=== PATIENT | female | born 1945 | race Caucasian/White ===

== ENCOUNTER 2017-12-26 15:31 | Emergency (ER) | payer MEDICARE, MEDICAID, SELFPAY ==
[2017-12-26 15:41] VITALS: BP 175/76; PULSE 50; RESP 20; TEMP 36.2; O2SAT 98; BMI 41.5
--- NOTE | 2017-12-26 15:42 | ED.FEMALEGU ---
HPI - Female Genitourinary <Marleni Pirde PA-C - Last Filed: 12/26/17 21:44> General Chief complaint: Urogenital-Female Stated complaint: BLADDER ISSUES,LOTS OF PAIN Time Seen by Provider: 12/26/17 15:42 Source: patient Mode of arrival: ambulatory Limitations: no limitations History of Present Illness HPI Narrative: This 72-year-old female comes into the ED today requesting a refill of Augmentin due to recurrence bladder spasm and urinary frequency and pressure. She states that she has had this problem off and on since the , last was about a year and a half ago. She states she had full urology workup including cystoscopy and no specific findings. She denies jorje burning. She denies fever, chills, sweats. She denies any flank pain or nausea or vomiting or other new symptoms. She states this feels very typical of her previous ???cystitis???, and the Augmentin she used previously helped at high dose, not at lower dose. Other antibiotics have not helped for this. She states she has tried ibuprofen and Pyridium without relief. She states there do not seem to be any triggers for her symptoms and she can go a year or two between episodes Related Data Previous Rx's Medication Instructions Recorded albuterol sulfate [Proventil HFA] 2 puff INH QID #17 gm 05/07/16 omeprazole 20 mg PO QDAY #90 cap 11/05/16 fluticasone [Flovent HFA] 0 INH BID #3 inh 12/21/16 chlorthalidone 25 mg PO QDAY #90 tab 07/07/17 metformin 1,000 mg PO BID #180 tab 07/28/17 glimepiride [Amaryl] 4 mg PO AMCC #30 tab 08/11/17 penicillin V potassium 500 mg PO QID 10 Days #0 tab 08/29/17 ibuprofen 600 mg PO Q8HP PRN #90 tab 09/09/17 azithromycin [Zithromax] 250 - 500 mg PO QDAY #6 tab 09/10/17 clotrimazole-betamethasone 1 roya TP TID #1 tube 10/05/17 simvastatin [Zocor] 20 mg PO QDAY #90 tab 10/05/17 insulin aspart U-100 [Novolog 8 - 28 unit SQ SEE INSTRUCTIONS #1 10/28/17 Flexpen U-100 Insulin] box atenolol 25 mg PO QDAY #90 tab 11/10/17 lisinopril 20 mg PO QDAY #90 tab 11/10/17 ferrous fumarate [Ferrocite] 324 mg PO Q DAY #30 tab 11/16/17 insulin detemir U-100 [Levemir 30 u SQ BID #15 ea 11/17/17 FlexTouch U-100 Insuln] pen needle, diabetic 31 gauge x #300 each 12/07/1712/15 hydrocodone 5 mg-acetaminophen 325 0 tab PO Q4HP PRN #45 tab 12/17/17 mg tablet amoxicillin-pot clavulanate 1 tab PO Q12H #28 tab 12/26/17 [Augmentin] Allergies Allergy/AdvReac Type Severity Reaction Status Date / Time iodine [IODINE] Allergy Severe hives Verified 12/26/17 15:54 ciprofloxacin [CIPROFLOXACIN] AdvReac Intermediate swelling Verified 12/26/17 15:54 rosuvastatin [From CRESTOR] AdvReac Unknown Verified 12/26/17 15:54 tramadol [TRAMADOL] AdvReac Unknown headache Verified 12/26/17 15:54 Review of Systems <Marleni Pride PA-C - Last Filed: 12/26/17 21:44> Review of Systems All systems reviewed & are unremarkable except as noted in HPI and below Exam <Marleni Pride PA-C - Last Filed: 12/26/17 21:44> Narrative Exam Narrative: GENERAL APPEARANCE: Patient sitting comfortably, in no distress. LUNGS: Clear to auscultation bilaterally. HEART: Rate and rhythm regular without murmur, normal S1 and S2, no S3 or S4. ABDOMEN: Soft, obese, ND, +BS x 4 quadrants, minimal localized suprapubic TTP, no CVAT. Initial Vital Signs Initial Vital Signs: Vital Signs Temperature 97.1 F L 12/26/17 15:41 Pulse Rate 50 L 12/26/17 15:41 Respiratory Rate 20 12/26/17 15:41 Blood Pressure 175/76 H 12/26/17 15:41 Pulse Oximetry 98 12/26/17 15:41 <Virgie Conner DO - Last Filed: 12/27/17 07:31> Initial Vital Signs Initial Vital Signs: Vital Signs Temperature 97.1 F L 12/26/17 15:41 Pulse Rate 50 L 12/26/17 15:41 Respiratory Rate 20 12/26/17 15:41 Blood Pressure 175/76 H 12/26/17 15:41 Pulse Oximetry 98 12/26/17 15:41 Course <Marleni Pride PA-C - Last Filed: 12/26/17 21:44> Hospital Course: Reviewed normal UA with patient advise that she likely has some intermittent bladder inflammation, and the antibiotic may act as an anti-inflammatory. She used this rarely and reasonable to refill, however advised her of potential down sides including side effects, C diff, etc and to discuss with her PCP and talk about having a prescription to fill as needed. Also advised to discontinue the prescription if she is feeling better in 3-5 days rather than do the full course. Vital Signs - 8 hr 12/26/17 15:41 Temperature 97.1 F L Pulse Rate 50 L Respiratory Rate 20 Blood Pressure 175/76 H Pulse Oximetry 98 <Virgie Conner DO - Last Filed: 12/27/17 07:31> Vital Signs - 8 hr 12/26/17 15:41 Temperature 97.1 F L Pulse Rate 50 L Respiratory Rate 20 Blood Pressure 175/76 H Pulse Oximetry 98 Discharge Plan Departure Patient Disposition: Home, Self-Care Clinical Impression: Cystitis Discharge Date/Time: 12/26/17 16:40 Interventions: ED Discharge Assessment Last Done: 12/26/17 16:38 Instructions: DI for Interstitial Cystitis Activity Restrictions/Additional Instructions: Since you have had a full workup for your bladder pain, it is reasonable for you to continue the antibiotic occasionally if you need to. I suspect that you occasionally get inflammation that is not related to infection, but that the antibiotic helps with. Do not take the full course if you are feeling better in a few days. As we talked about, we want to limit the risk of side effects and secondary infections from the antibiotic. Please talk with your PCP about keeping a prescription on hand to fill as needed since you use it so rarely. Return as we talked about if you have acutely worsening symptoms Prescriptions: New amoxicillin-pot clavulanate [Augmentin] 875-125 mg tablet 1 tab PO Q12H Qty: 28 RF: 0 No Action albuterol sulfate [Proventil HFA] 90 MCG/PUFF HFA aerosol inhaler 2 puff INH QID Qty: 17 RF: 2 omeprazole 20 MG capsule,delayed release(DR/EC) 20 mg PO QDAY Qty: 90 RF: 1 fluticasone [Flovent HFA] 12 GM HFA aerosol inhaler INH BID Qty: 3 RF: 3 chlorthalidone 25 MG tablet 25 mg PO QDAY Qty: 90 RF: 3 metformin 1,000 MG tablet 1,000 mg PO BID Qty: 180 RF: 3 glimepiride [Amaryl] 4 MG tablet 4 mg PO AMCC Qty: 30 RF: 4 penicillin V potassium 500 MG tablet 500 mg PO QID 10 Days Qty: 0 RF: 0 ibuprofen 600 MG tablet 600 mg PO Q8HP PRNQty: 90 RF: 0 azithromycin [Zithromax] 250 MG tablet 250 - 500 mg PO QDAY Qty: 6 RF: 0 simvastatin [Zocor] 20 MG tablet 20 mg PO QDAY Qty: 90 RF: 3 clotrimazole-betamethasone 15 GM cream 1 roya TP TID Qty: 1 RF: 3 insulin aspart U-100 [Novolog Flexpen U-100 Insulin] 100 UNIT/1 ML insulin pen 8 - 28 unit SQ SEE INSTRUCTIONS Qty: 1 RF: 3 lisinopril 20 MG tablet 20 mg PO QDAY Qty: 90 RF: 1 atenolol 50 MG tablet 25 mg PO QDAY Qty: 90 RF: 3 ferrous fumarate [Ferrocite] 324 MG tablet 324 mg PO Q DAY Qty: 30 RF: 3 insulin detemir U-100 [Levemir FlexTouch U-100 Insuln] 100 UNIT/1 ML insulin pen 30 u SQ BID Qty: 15 RF: 5 pen needle, diabetic [BD Ultra-Fine Short Pen Needle] 31 gauge x 5/16 needle .ROUTE .MEDSUPPLY Qty: 300 RF: 12 hydrocodone-acetaminophen 5-325 mg tablet PO Q4HP PRN (Reason: pain) Qty: 45 RF: 0 Referrals: Carlos Arrington MD [Primary Care Provider] - <Virgie Conner DO - Last Filed: 12/27/17 07:31> Cosign ED Attending Cosignature Attestation: I was immediately available in the department for consultation. Documentation has been reviewed. I agree with assessment and plan.
--- NOTE | 2017-12-26 15:43 | PC.NURSE ---
To BR to try to give a urine spec
--- NOTE | 2017-12-26 16:24 | PC.NURSE ---
Mother concerned about patient getting legs caught in side rails - blankets used to discourage putting limbs between rails - mother declined the use of seizure pads
== END 2017-12-26 16:40 | disposition home or self-care (01) ==
PROVIDERS: Emergency Provider Internal Medicine; Family Provider Internal Medicine; PCP Internal Medicine
DX: N30.90 Cystitis, unspecified without hematuria (principal)
CPT/HCPCS: 81003; 99283

== ENCOUNTER 2018-02-11 07:57 | Day surgery (SDC) | payer MEDICARE, MEDICAID, SELFPAY ==
[2018-02-11] VITALS (9 sets, daily range): BP systolic 130–166; BP diastolic 60–78; PULSE 48–53; RESP 13–22; TEMP 36.2–36.9; O2SAT 96–100; BMI 41.5
--- NOTE | 2018-02-11 | PATH_ITS ---
[facility] Accession Number: [id number] . 01 Material submitted: . PART A: GASTRIC POLYP PART B: SMALL GASTRIC POLYPS PART C: COLON POLYP AT 20CM . 02 Diagnosis: A. Gastric Polyp: Inflammatory/hyperplastic polyp, negative for atypia. . B. Specimen Designated Small Gastric Polyps: Benign fundic gland polyps involving all biopsy fragments. Negative for evidence of Helicobacter on H/E stain. Negative for intestinal metaplasia. . C. Biopsy, Colon Polyp At 20 CM: Hyperplastic polyp. . BFI/02/24/2018 . 02 Electronically signed: . Alejandro Miranda MD, Pathologist NPI- [id number] . 01 Gross description: . Part A: GASTRIC POLYP: Received in formalin is 1 fragment(s) of rojo, soft tissue measuring 2.4 x 2.4 x 2.0 cm which is inked, serially sectioned and submitted entirely in 2 cassette(s) Part B: SMALL GASTRIC POLYPS: Received in formalin are 5 fragment(s) of rojo, soft tissue measuring 0.4 x 0.4 x 0.3 cm to 0.2 x 0.2 x 0.2 cm submitted entirely in 1 cassette(s) Part C: COLON POLYP AT 20CM: Received in formalin is 1 fragment(s) of rojo, soft tissue measuring 0.4 x 0.3 x 0.2 cm submitted entirely in 1 cassette(s) /CKI /CKI . 02 Pathologist provided ICD-10: K31.7 . 02 CPT . 616997, 099151, 210121 Performed at: [address], [place], [place] [id number] MD Bao Esteves MD Phone: [phone] Performed at: 02 [facility] [place] [address] [place] [id number] MD Jalen Tadeo MD Phone: [phone]
[2018-02-11] MEDS: SODIUM CHLORIDE 0.9% 1,000 ML 200 ML IV (08:17)
--- NOTE | 2018-02-11 09:02 | P.HP_ITS ---
History of Present Illness Date Patient Seen: 02/11/18 Time Patient Seen: 08:29 Chief complaint: EGD colonoscopy [id number] Narrative: Patient is a woman here for evaluation of anemia. She was actually seen in September and has had 3 cancellations of an EGD and colonoscopy. She has finally here to have those tests. She presently is asymptomatic. She has been on iron whole time. She has had no labs drawn since then. Glucose this morning in acceptable range. Patient History Medical History Asthma (Chronic) Diabetes mellitus (Chronic) Diverticular disease (Chronic) GERD (gastroesophageal reflux disease) (Chronic) Hyperlipidemia (Chronic) Hypertension (Chronic) Surgical History History of total abdominal hysterectomy (Resolved) History of bilateral salpingo-oophorectomy (BSO) Family & Social History Family History: Reviewed 02/11/18 by Daryn Yun MD Social History: household members none Tobacco & Substance use: Smoking Status Never smoker Substance Use Type does not use Meds Home Medications Medication Instructions Recorded Confirmed Type albuterol sulfate [Proventil HFA] 2 puff INH QID #17 gm 05/07/16 02/11/18 Rx chlorthalidone 25 mg PO QDAY #90 tab 07/07/17 Rx metformin 1,000 mg PO BID #180 tab 07/28/17 Rx ibuprofen 600 mg PO Q8HP PRN #90 tab 09/09/17 Rx clotrimazole-betamethasone 1 roya TP TID #1 tube 10/05/17 Rx simvastatin [Zocor] 20 mg PO QDAY #90 tab 10/05/17 Rx atenolol 25 mg PO QDAY #90 tab 11/10/17 Rx lisinopril 20 mg PO QDAY #90 tab 11/10/17 Rx ferrous fumarate [Ferrocite] 324 mg PO Q DAY #30 tab 11/16/17 Rx insulin detemir U-100 [Levemir 30 u SQ BID #15 ea 11/17/17 Rx FlexTouch U-100 Insuln] pen needle, diabetic 31 gauge x #300 each 12/07/17 Rx 12/15 glimepiride [Amaryl] 4 mg PO AMCC #30 tab 12/31/17 Rx omeprazole 20 mg capsule,delayed 20 mg PO QDAY #90 cap 12/31/17 Rx release ranitidine 150 mg tablet 150 mg PO BID PRN #60 tab 01/19/18 Rx insulin aspart U-100 [Novolog 8 - 28 unit SQ SEE INSTRUCTIONS #1 01/24/18 Rx Flexpen U-100 Insulin] box hydrocodone 5 mg-acetaminophen 325 See Label Instructions PO Q4HP PRN 02/10/18 Rx mg tablet #45 tab fluticasone [Flovent HFA] 2 puff INH BID 02/11/18 History Allergies Allergy/AdvReac Type Severity Reaction Status Date / Time Horse/Equine Containing Allergy Severe Difficulty Verified 02/11/18 08:47 Products Breathing iodine [IODINE] Allergy Severe hives Verified 02/11/18 08:46 ciprofloxacin [CIPROFLOXACIN] AdvReac Intermediate swelling Verified 02/11/18 08 :45 tramadol [TRAMADOL] AdvReac Intermediate headache Verified 02/11/18 08:45 rosuvastatin [From CRESTOR] AdvReac Mild Swelling Verified 02/11/18 08:45 in feet Review of Systems Review of Systems Has some chronic pain related to her back. Intermittent shortness of breath. Sugars are variably controlled. No chest pain or heart attacks in the past. No black or bloody bowel movements. Exam Vital Signs (past 8 hours): - 02/11/18 08:17 Temperature 97.3 F L Pulse Rate 51 L Respiratory Rate 16 Blood Pressure 151/65 H Pulse Oximetry 96 Oxygen Delivery Method Room Air Narrative Exam Narrative: Obese very pleasant woman in no apparent distress. Her eyes are nonicteric. She has good color. Her lungs are clear to auscultation without rales or rhonchi. Heart regular rate and rhythm no murmur gallop. Abdomen is protuberant soft no obvious tenderness or mass. She is alert and oriented x3. Assessment & Plan Plan: Assessment/Plan Narrative: Patient with anemia for an EGD and colonoscopy to evaluate. Her last colonoscopy was 5 years ago. She had a polyp removed at that time. I have discussed the procedures with her. Risks of pain, perforation which would necessitate a major operation, failure to find removal lesions in the potential tattoo were discussed. She appears to understand and wishes to proceed
--- NOTE | 2018-02-11 09:02 | PM.PREOP ---
Pre-operative Note Interval Note Pre-op Check: History & Physical exam performed today H&P completed within 30 days and has changed as indicated here:: None ASA Class (for procedural sedation): III
[2018-02-11] MEDS: LIDOCAINE 4% SOLN 50 ML 20 ML TOP (09:10)
[2018-02-11] MEDS: TETRACAINE/BENZOCAINE/BUTAMBEN (CETACAINE) BOTTLE 1 SPRAY TOP (09:11)
[2018-02-11] MEDS: EPINEPHrine 1 MG/10 ML SYRINGE INJ (09:58)
[2018-02-11] MEDS: MIDAZOLAM 5 MG/5 ML VIAL IV (10:11)
[2018-02-11] MEDS: fentaNYL 250 MCG/5 ML INJ IV (10:12)
--- NOTE | 2018-02-11 10:38 | P.OP.ENDO_ITS ---
Operative Date/Time/Diagnoses Date of procedure: 02/11/18 Time of procedure: 10:22 Pre-op diagnosis: Anemia chronic Post-op diagnosis: same (Large gastric polyp source of anemia. Gastric fundic polyps extensive. Sigmoid diverticulosis. Two tiny rectal sigmoid polyps at 20 cm. External hemorrhoid) Procedure & Clinicians Study performed: EGD with hot snare polypectomy and injection of epinephrine into the base of the polyp to control bleeding. Colonoscopy with cold biopsy. Same procedure as scheduled: Yes Indications: Determine source of anemia. Surgeon: Daryn Yun Procedure Notes SCOAP/Timeout: Performed Procedure in detail: The patient had topical anesthetic applied to oropharynx. She was placed in left lateral decubitus position and underwent IV sedation directed by the surgeon consisting of fentanyl and Versed and Phenergan. A bite block was inserted and the scope was advanced through it into the esophagus. The esophagus was unremarkable. GE junction was noted at 38 cm from the incisors. The patient was noted to have a small hiatal hernia. Extensive gastric fundic polyps were noted.. The stomach insufflated well. There was inflammation in the antrum. The pyloric channel was [partially blocked by what appeared to be a stalk of a polyp.]. The duodenum was entered and there was a huge polyp within the duodenal bulb whose base was in the antrum of the stomach. Using the largest snare I had we were able to place a snare under the polyp on its very long stalk. I then pulled it into the stomach. It barely fit through the pyloric channel. Using cautery the stock was transected. Bleeding was noted from the stock of a slow continuous ooze. I chose to inject epinephrine containing solution a total of 2 cc into the base of the polyp. This slowed the bleeding and I then cauterized the bleeding site. This brought the bleeding under control.. The scope was brought back into the stomach and retroflexed. Except for the already mentioned gastric fundic polyps retroflexed view was fairly normal. The scope was straightened and multiple gastric fundic appearing polyps were biopsied to confirm clinical suspicion. The snare site was again examined and there was no evidence of bleeding. The stalk had become somewhat pale from the epinephrine injection. The large polyp was captured in a bag and brought out through the esophagus is a solid piece of tissue. The polyp was so large it was difficult to pull up through the upper entrance into the esophagus. The scope was removed and the patient tolerated the procedure well. The patient was placed in the left lateral decubitus position and underwent IV sedation directed by the surgeon consisting of fentanyl and Versed. Digital exam was[remarkable for an external hemorrhoid.]. The scope was inserted and advanced through the rectum into the sigmoid, descending, transverse, and ascending colon. I noted some large mouth sigmoid diverticuli. There was no narrowing or tortuosity however.. The cecum was reached identified by the ileocecal valve and the appendiceal opening. The scope was gradually brought out. Polyps were found at[20 cm from the anal verge. These were very small and may be hyperplastic.]. The scope ultimately was retroflexed in the rectum. The appearance was remarkable for some minor scarring. The scope was removed and the patient tolerated the procedure well Sedation minutes: 63 Findings: diverticulosis (Sigmoid), gastritis (Antrum), internal hemorrhoids ( Minor with an external hemorrhoid) and polyp (Huge gastric polyp on a stalk. Too Numerous to count gastric fundic polyps. Two small polypoid lesions at 20 cm from the anal verge) Specimen(s): other (Polyps in 3 separate containers) Complications: none Recommendations: Colonscopy in 5 years and Other recommendation (EGD in 6 months depending on pathology of the large gastric polyp) Follow up: weeks (2-4) Disposition: PACU
--- NOTE | 2018-02-11 11:25 | SUR.PHASEII ---
Pt drowsy. Vs stable. ABD soft, denied pain. Call light within reach.
[2018-02-11 11:55] LABS: Add Manual Diff / Slide Review NO; Basophils Percent Auto 0.7 % (0-2); Eosinophils Percent Auto 4.3 % (2-4); Hematocrit 33.5 % (36-46); Hemoglobin 10.9 g/dL (12.0-16.0); Lymphocytes Percent Auto 26.7 % (25-40); Mean Corpuscular HGB Conc 32.5 % (30-36); Mean Corpuscular Hemoglobin 28.1 PG (26-34); Mean Corpuscular Volume 86.6 fL (80-100); Monocytes Percent Auto 4.8 % (3-14); Neutrophils Absolute Auto 7100 /uL (3000-5900); Neutrophils Percent Auto 63.5 % (50-75); Platelet Count 247 X10^3/uL (150-400); Red Blood Cell Count 3.87 X10^6/uL (4.0-5.2); White Blood Cell Count 11.2 X10^3/uL (4.5-11.0)
--- NOTE | 2018-02-11 12:21 | SUR.PHASEII ---
1218 CBC results here, informed Dr. Yun of elevate WBC, low RBC - H&H; approved discharge. Patient states that she feels ready to go home. IV dc'd, clothes given.
--- NOTE | 2018-02-11 12:43 | SUR.PHASEII ---
DC instructions review by Fabricio Golden RN
[2018-02-11] MEDS: PROMETHAZINE 25 MG in SODIUM CHLORIDE 0.9% 50 ML 204 ML IV (12:57)
== END 2018-02-11 12:34 | disposition home or self-care (01) ==
LOC: ENDO 07:58
PROVIDERS: Family Provider Internal Medicine; PCP Internal Medicine; Visit Provider Specialist
PROC: 0DJ08ZZ Inspection of Upper Intestinal Tract, Via Natural or Artificial Opening Endoscopic (ICD-10-PCS; CPT 43235; principal; 2018-02-11 08:45)
PROC: 0DJD8ZZ Inspection of Lower Intestinal Tract, Via Natural or Artificial Opening Endoscopic (ICD-10-PCS; CPT 45378; 2018-02-11 08:45)
DX: K31.7 Polyp of stomach and duodenum (principal); J45.909 Unspecified asthma, uncomplicated; E11.9 Type 2 diabetes mellitus without complications; K57.30 Diverticulosis of large intestine without perforation or abscess without bleeding; K21.9 Gastro-esophageal reflux disease without esophagitis; E78.5 Hyperlipidemia, unspecified; I10 Essential (primary) hypertension; Z86.010 Personal history of colon polyps; K29.70 Gastritis, unspecified, without bleeding; D12.5 Benign neoplasm of sigmoid colon; K64.4 Residual hemorrhoidal skin tags; E66.9 Obesity, unspecified
CPT/HCPCS: 43251; 45380; 36415; 85025; 99152; 99153; J0171; J2250; J2550; J3010

== ENCOUNTER 2018-03-23 22:07 | Emergency (ER) | payer MEDICARE, MEDICAID, SELFPAY ==
[2018-03-23 22:08] VITALS: BP 156/70; PULSE 53; RESP 16; TEMP 36.4; O2SAT 97; BMI 41.5
[2018-03-23 22:17] LABS: Bacteria Urine None Seen; RBC Urine None Seen (0-5/HPF)
[2018-03-23 22:18] LABS: Appearance Urine UA CLEAR; Bilirubin Urine UA NEGATIVE (NEGATIVE); Color Urine UA YELLOW; Glucose Urine UA 1+ g/dL (Normal); Ketones Urine UA NEGATIVE (NEGATIVE); Leukocyte Esterase Urine UA TRACE (NEGATIVE); Nitrite Urine UA Negative (Negative); Occult Blood Urine UA NEGATIVE (Negative); Protein Urine UA NEGATIVE (Negative); Specific Gravity Urine UA 1.015 (1.000-1.035); Urobilinogen Urine UA 0.2 E.U./dL (0.2)
[2018-03-23 22:40] LABS: Squamous Epithelial Cell Urine 0-1 /HPF; WBC Urine 0-1/HPF (0-5/HPF)
[2018-03-23 22:41] LABS: Culture Indicated Urine Specimen Cultured
[2018-03-23] MEDS: AMOXICILLIN/CLAV 875/125 MG 1 TAB PO (23:23)
[2018-03-23 23:42] VITALS: BP 154/72; PULSE 60; RESP 16; O2SAT 100
--- NOTE | 2018-03-24 06:17 | ED.FEMALEGU ---
HPI - Female Genitourinary General Chief complaint: Urogenital-Female Stated complaint: UTI Sx Time Seen by Provider: 03/23/18 23:00 Source: patient Mode of arrival: ambulatory Limitations: no limitations History of Present Illness HPI Narrative: 73-year-old female presents to the emergency department with a chief complaint of dysuria, frequency and urgency as well as suprapubic tenderness for the past week. She has a longstanding history of urinary tract infections and cystitis and has seen neurologists on multiple occasions. She denies back pain, nausea nor fever or chills. She is not dizzy nor weak or lightheaded. She states that she does well with Augmentin and that other antibiotics 10 to not work and make her feel sick MD Complaint: dysuria and UTI Onset (ago): day(s) Location: suprapubic Severity: mild Quality: Aching and Burning Duration: constant Relieving factors: none Exacerbating factors: none Urinary symptoms: Difficulty Urinating, Dysuria, Foul Smelling Urine and Frequency Patient : No Associated symptoms: denies other symptoms Related Data Home Medications Medication Instructions Recorded Confirmed fluticasone [Flovent HFA] 2 puff INH BID 02/11/18 Previous Rx's Medication Instructions Recorded albuterol sulfate [Proventil HFA] 2 puff INH QID #17 gm 05/07/16 chlorthalidone 25 mg PO QDAY #90 tab 07/07/17 metformin 1,000 mg PO BID #180 tab 07/28/17 ibuprofen 600 mg PO Q8HP PRN #90 tab 09/09/17 clotrimazole-betamethasone 1 roya TP TID #1 tube 10/05/17 simvastatin [Zocor] 20 mg PO QDAY #90 tab 10/05/17 atenolol 25 mg PO QDAY #90 tab 11/10/17 lisinopril 20 mg PO QDAY #90 tab 11/10/17 ferrous fumarate [Ferrocite] 324 mg PO Q DAY #30 tab 11/16/17 insulin detemir U-100 [Levemir 30 u SQ BID #15 ea 11/17/17 FlexTouch U-100 Insuln] pen needle, diabetic 31 gauge x #300 each 12/07/1712/15 glimepiride [Amaryl] 4 mg PO AMCC #30 tab 12/31/17 omeprazole 20 mg capsule,delayed 20 mg PO QDAY #90 cap 12/31/17 release ranitidine 150 mg tablet 150 mg PO BID PRN #60 tab 01/19/18 insulin aspart U-100 [Novolog 8 - 28 unit SQ SEE INSTRUCTIONS #1 01/24/18 Flexpen U-100 Insulin] box hydrocodone 5 mg-acetaminophen 325 See Label Instructions PO Q4HP PRN 03/15/18 mg tablet #45 tab insulin glargine (U-100) 100 30 unit SUBCUT DAILY #15 ml 03/18/18 unit/mL (3 mL) subcutaneous pen amoxicillin-pot clavulanate 1 tab PO BID #20 tab 03/23/18 [Augmentin] amoxicillin-pot clavulanate 1 tab PO BID 14 Days #28 tab 03/23/18 [Augmentin] sulfamethoxazole-trimethoprim 1 tab PO BID 14 Days #28 tab 03/23/18 [Bactrim DS] Allergies Allergy/AdvReac Type Severity Reaction Status Date / Time Horse/Equine Containing Allergy Severe Difficulty Verified 02/11/18 08:47 Products Breathing iodine [IODINE] Allergy Severe hives Verified 02/11/18 08:46 ciprofloxacin [CIPROFLOXACIN] AdvReac Intermediate swelling Verified 02/11/18 08:45 tramadol [TRAMADOL] AdvReac Intermediate headache Verified 02/11/18 08:45 rosuvastatin [From CRESTOR] AdvReac Mild Swelling Verified 02/11/18 08:45 in feet Review of Systems Review of Systems All systems reviewed & are unremarkable except as noted in HPI and below Constitutional Denies chills, Denies fever(s), Denies lethargy and Denies weakness Eyes Denies change in vision, Denies eye discharge, Denies irritation and Denies loss of vision ENT Ears, Nose, Mouth, and Throat: Denies change in voice, Denies neck pain and Denies sore throat Cardiovascular Denies chest pain, Denies irregular heart rhythm, Denies lightheadedness, Denies palpitations, Denies dyspnea, Denies dyspnea on exertion and Denies orthopnea Respiratory Denies cough, Denies dyspnea, Denies dyspnea on exertion and Denies wheezing Gastrointestinal Gastrointestinal: Denies abdominal pain, Denies change in bowel habits, Denies diarrhea, Denies nausea and Denies vomiting Genitourinary Denies hematuria, Reports dysuria, Denies flank pain, Denies urinary incontinence and Reports urinary urgency Musculoskeletal Denies neck pain Integumentary/Breasts Denies pruritus, Denies erythema, Denies rash and Denies wounds Neurologic Denies confusion, Denies loss of vision and Denies weakness Psychiatric Denies anxiety, Denies confusion, Denies depression, Denies homicidal ideation and Denies suicidal ideation Endocrine Denies palpitations Hematologic/Lymphatic Denies easy bruising Allergic/Immunologic Denies wheezing [facility] Medical History Asthma (Chronic) Diabetes mellitus (Chronic) Diverticular disease (Chronic) GERD (gastroesophageal reflux disease) (Chronic) Hyperlipidemia (Chronic) Hypertension (Chronic) Surgical History History of total abdominal hysterectomy (Resolved) History of bilateral salpingo-oophorectomy (BSO) Social History household members: none Smoking Status: Never smoker Exam Narrative Exam Narrative: GEN: AOx3 and in mild distress EYES: Pupils are equal, round, and reactive to light and accommodation. Extraoccular muscles are intact bilaterally. There is no subconjunctival hemorrhage or exudate. CHEST: Lungs are clear to auscultation bilaterally and free of wheezes, rales, or rhonchi. Heart rate is regular rhythm, there are no murmurs, clicks, rubs, or gallops. There is no chest wall tenderness. ABD: Abdomen is soft and mild suprapubic tenderness on exam. There is no guarding or rebound. Bowel sounds are normal in all 4 quadrants. There is no mass or organomegaly. EXT: Full painless ROM of all extremities with no loss of sensation or strength. SKIN: Warm, pink, and dry. No erythema or rash Initial Vital Signs Initial Vital Signs: Vital Signs Temperature 97.6 F 03/23/18 22:08 Pulse Rate 53 L 03/23/18 22:08 Respiratory Rate 16 03/23/18 22:08 Blood Pressure 156/70 H 03/23/18 22:08 Pulse Oximetry 97 03/23/18 22:08 Course Orders Ordered: ED Orders 03/23/18 22:16 Urinalysis and Microscopic Stat Urine Culture Stat Discontinued Medications Amoxicillin/Clavulanate Potassium (Augmentin 875-125 Mg) 1 tab PO NOW ONE Stop: 03/23/18 23:10 Last Admin: 03/23/18 23:23 Dose: 1 tab Vital Signs - 8 hr 03/23/18 23:42 Pulse Rate 60 Respiratory Rate 16 Blood Pressure 154/72 H Pulse Oximetry 100 MDM - Female Genitourinary Lab Data Lab Results 03/23/18 Range/Units 22:16 Urine Color Yellow Urine Appearance Clear Urine pH 6.0 (4.5-8.0) Ur Specific [place] 1.015 (1.000-1.035) Urine Protein Negative (Negative) Urine Glucose (UA) 1+ (Normal) g/dL Urine Ketones Negative (NEGATIVE) Urine Occult Blood Negative (Negative) Urine Nitrate Negative (Negative) Urine Bilirubin Negative (NEGATIVE) Urine Urobilinogen 0.2 (0.2) E.U./dL Ur Leukocyte Esterase Trace H (NEGATIVE) Urine RBC None seen (0-5/HPF) Urine WBC 0-1/hpf (0-5/HPF) Ur Squamous Epith Cells 0-1 /hpf Urine Bacteria None seen (None) Ur Culture Indicated? Specimen cultured Micro UA Comment Not Reportable Discharge Plan Departure Patient Disposition: Home Clinical Impression: Cystitis, Acute UTI Discharge Date/Time: 03/23/18 23:42 Interventions: ED Discharge Assessment Last Done: 03/23/18 23:42 Instructions: DI for Urinary Tract Infection (UTI) Activity Restrictions/Additional Instructions: *You have been diagnosed with [ acute UTI with cystitis ] *What to do: *Take medications as directed: Your prescription has been electronically transmitted to the [facility] in [place] at your request *Follow up with your primary care provider in 2-3 days, call for an appointment. Let them know you were seen in the Emergency Department and that we ask that you be seen in follow up *Return to ER if you should have any new, worsening or concerning symptoms, such as [ increasing pain, fever, vomiting or other bothersome symptoms] Prescriptions: New amoxicillin-pot clavulanate [Augmentin] 875-125 mg tablet 1 tab PO BID Qty: 20 RF: 0 sulfamethoxazole-trimethoprim [Bactrim DS] 800-160 mg tablet 1 tab PO BID 14 Days Qty: 28 RF: 0 amoxicillin-pot clavulanate [Augmentin] 875-125 mg tablet 1 tab PO BID 14 Days Qty: 28 RF: 0 No Action albuterol sulfate [Proventil HFA] 90 MCG/PUFF HFA aerosol inhaler 2 puff INH QID Qty: 17 RF: 2 chlorthalidone 25 MG tablet 25 mg PO QDAY Qty: 90 RF: 3 metformin 1,000 MG tablet 1,000 mg PO BID Qty: 180 RF: 3 ibuprofen 600 MG tablet 600 mg PO Q8HP PRNQty: 90 RF: 0 simvastatin [Zocor] 20 MG tablet 20 mg PO QDAY Qty: 90 RF: 3 clotrimazole-betamethasone 15 GM cream 1 roya TP TID Qty: 1 RF: 3 lisinopril 20 MG tablet 20 mg PO QDAY Qty: 90 RF: 1 atenolol 50 MG tablet 25 mg PO QDAY Qty: 90 RF: 3 ferrous fumarate [Ferrocite] 324 MG tablet 324 mg PO Q DAY Qty: 30 RF: 3 insulin detemir U-100 [Levemir FlexTouch U-100 Insuln] 100 UNIT/1 ML insulin pen 30 u SQ BID Qty: 15 RF: 5 pen needle, diabetic [BD Ultra-Fine Short Pen Needle] 31 gauge x 5/16 needle .ROUTE .MEDSUPPLY Qty: 300 RF: 12 omeprazole 20 mg capsule,delayed release(DR/EC) 20 mg PO QDAY Qty: 90 RF: 1 glimepiride [Amaryl] 4 mg tablet 4 mg PO AMCC Qty: 30 RF: 3 ranitidine HCl [Acid Control (ranitidine)] 150 mg tablet 150 mg PO BID PRN (Reason: GI upset) Qty: 60 RF: 3 insulin aspart U-100 [Novolog Flexpen U-100 Insulin] 100 unit/mL insulin pen 8 - 28 unit SQ SEE INSTRUCTIONS Qty: 1 RF: 3 hydrocodone-acetaminophen 5-325 mg tablet See Label Instructions PO Q4HP PRN (Reason: pain) Qty: 45 RF: 0 insulin glargine [Lantus Solostar U-100 Insulin] 100 unit/mL (3 mL) insulin pen 30 unit SUBCUT DAILY Qty: 15 RF: 6 fluticasone [Flovent HFA] 12 GM HFA aerosol inhaler 2 puff INH BID RF: 0 Referrals: Carlos Arrington MD [Primary Care Provider] -
== END 2018-03-23 23:42 | disposition home or self-care (01) ==
PROVIDERS: Emergency Provider Emergency Medicine; Family Provider Internal Medicine; PCP Internal Medicine
DX: N30.90 Cystitis, unspecified without hematuria (principal); N39.0 Urinary tract infection, site not specified
CPT/HCPCS: 81001; 87086; 99282; 99283

== ENCOUNTER → 2018-04-07 15:37 | Outpatient (CLI) | payer MEDICARE, MEDICAID, SELFPAY ==
[2018-04-07 16:00] LABS: Add Manual Diff / Slide Review NO; Basophils Percent Auto 0.6 % (0-2); Eosinophils Percent Auto 5.4 % (2-4); Hematocrit 36.1 % (36-46); Hemoglobin 11.9 g/dL (12.0-16.0); Mean Corpuscular HGB Conc 32.8 % (30-36); Mean Corpuscular Hemoglobin 29.2 PG (26-34); Mean Corpuscular Volume 88.9 fL (80-100); Monocytes Percent Auto 4.8 % (3-14); Neutrophils Absolute Auto 5700 /uL (3000-5900); Neutrophils Percent Auto 51.2 % (50-75); Platelet Count 295 X10^3/uL (150-400); Red Blood Cell Count 4.07 X10^6/uL (4.0-5.2); Red Cell Distribution Width 14.2 % (11.6-14.8); White Blood Cell Count 11.1 X10^3/uL (4.5-11.0)
[2018-04-07 16:12] LABS: BUN Creatinine Ratio 20.9 (6-22); Blood Urea Nitrogen 23 mg/dL (7-17); Calcium 9.7 mg/dL (8.4-10.2); Carbon Dioxide 29 mmol/L (22-32); Chloride 103 mmol/L (98-107); Glucose 109 mg/dL (80-110); HEMOLYSIS < 15 (0-50); Potassium 4.6 mmol/L (3.4-5.1); Sodium 142 mmol/L (137-145)
[2018-04-07 16:14] LABS: Hemoglobin A1C% w Est Avg Glu 7.5 % (4.0-6.0)
[2018-04-07 16:36] LABS: HEMOLYSIS < 15 (0-50); Iron 188 ug/dL (37-170)
[2018-04-07 16:48] LABS: Percent Iron Saturation 48 % (15-50); Total Iron Binding Capacity 388 ug/dL (265-497); Transferrin 350 mg/dL (206-381)
== END ==
PROVIDERS: Family Provider Internal Medicine; PCP Internal Medicine; Visit Provider Internal Medicine
DX: D64.9 Anemia, unspecified (principal)
CPT/HCPCS: 36415; 80048; 83036; 83540; 83550; 85025

== ENCOUNTER 2018-04-26 22:19 | Emergency (ER) | payer MEDICARE, MEDICAID, SELFPAY ==
[2018-04-26 22:41] VITALS: BP 175/65; PULSE 56; RESP 16; TEMP 36.7; O2SAT 96; BMI 41.1
--- NOTE | 2018-04-26 23:18 | PC.NURSE ---
Pt has a hx of recurrent UTI and cystitis. She states that whenever she gets these symptoms, she always gets a prescription for Augmentin and the symptoms clear. She is currently on 2 week course of Augmentin and still feels UTI symptoms, however this time she has low back pressure. Denies other symptoms.
[2018-04-26 23:48] LABS: Bacteria Urine None Seen; RBC Urine None Seen (0-5/HPF); WBC Urine None Seen (0-5/HPF)
[2018-04-26 23:57] LABS: Culture Indicated Urine Cult Not Indicated; Urine Comments Microscopic Normal
[2018-04-27 00:14] VITALS: BP 176/49; PULSE 53; RESP 18; O2SAT 98
[2018-04-27] MEDS: OXYCODONE/APAP 5/325 PREPACK 1 BOTTLE MISC (00:14)
--- NOTE | 2018-04-27 05:38 | ED_ITS ---
HPI - Female Genitourinary General Chief complaint: Urogenital-Female Stated complaint: BLADDER DISCOMFORT Time Seen by Provider: 04/26/18 22:49 Source: patient Mode of arrival: ambulatory Limitations: no limitations History of Present Illness HPI Narrative: A 73-year-old female with history of cystitis presents to the emergency department with a chief complaint of bladder discomfort for the past few weeks. She has had a chronic problem with cystitis which tends to respond to antibiotics regardless of the presence of bacteria in the urine. She has seen Urology in the past has had bladder scopes among other therapies. I had seen her relatively recently and prescribed Augmentin, which she reports normally helps. Her symptoms improved after a few days and she was at her baseline for few weeks Related Data Home Medications Medication Instructions Recorded Confirmed fluticasone [Flovent HFA] 2 puff INH BID 02/11/18 04/07/18 bimatoprost 0.01 % eye drops 1 drop OPHTHALMIC (EYE) DAILY ml 04/07/18 04/07/18 Previous Rx's Medication Instructions Recorded albuterol sulfate [Proventil HFA] 2 puff INH QID #17 gm 05/07/16 chlorthalidone 25 mg PO QDAY #90 tab 07/07/17 metformin 1,000 mg PO BID #180 tab 07/28/17 ibuprofen 600 mg PO Q8HP PRN #90 tab 09/09/17 clotrimazole-betamethasone 1 roya TP TID #1 tube 10/05/17 simvastatin [Zocor] 20 mg PO QDAY #90 tab 10/05/17 atenolol 25 mg PO QDAY #90 tab 11/10/17 lisinopril 20 mg PO QDAY #90 tab 11/10/17 insulin detemir U-100 [Levemir 30 u SQ BID #15 ea 11/17/17 FlexTouch U-100 Insuln] pen needle, diabetic 31 gauge x #300 each 12/07/1712/15 glimepiride [Amaryl] 4 mg PO AMCC #30 tab 12/31/17 omeprazole 20 mg capsule,delayed 20 mg PO QDAY #90 cap 12/31/17 release ranitidine 150 mg tablet 150 mg PO BID PRN #60 tab 01/19/18 amoxicillin-pot clavulanate 1 tab PO BID #20 tab 03/23/18 [Augmentin] ferrous fumarate [Ferrocite] 324 mg PO Q DAY #30 tab 03/30/18 docusate sodium 100 mg capsule 100 mg PO BID #60 cap 04/07/18 hydrocodone 5 mg-acetaminophen 325 See Label Instructions PO Q4HP PRN 04/07/18 mg tablet #45 tab insulin aspart U-100 [Novolog 8 - 28 unit SQ SEE INSTRUCTIONS #1 04/11/18 Flexpen U-100 Insulin] box insulin glargine (U-100) 100 30 unit SUBCUT DAILY #15 ml 04/18/18 unit/mL (3 mL) subcutaneous pen Allergies Allergy/AdvReac Type Severity Reaction Status Date / Time Horse/Equine Containing Allergy Severe Difficulty Verified 04/26/18 22:41 Products Breathing iodine [IODINE] Allergy Severe hives Verified 04/26/18 22:41 ciprofloxacin [CIPROFLOXACIN] AdvReac Intermediate swelling Verified 04/26/18 22 :41 tramadol [TRAMADOL] AdvReac Intermediate headache Verified 04/26/18 22:41 rosuvastatin [From CRESTOR] AdvReac Mild Swelling Verified 04/26/18 22:41 in feet Review of Systems Review of Systems All systems reviewed & are unremarkable except as noted in HPI and below Constitutional Denies chills, Denies fever(s), Denies lethargy and Denies weakness Eyes Denies change in vision, Denies eye discharge, Denies irritation and Denies loss of vision ENT Ears, Nose, Mouth, and Throat: Denies change in voice, Denies neck pain and Denies sore throat Cardiovascular Denies chest pain, Denies irregular heart rhythm, Denies lightheadedness, Denies palpitations, Denies dyspnea, Denies dyspnea on exertion and Denies orthopnea Respiratory Denies cough, Denies dyspnea, Denies dyspnea on exertion and Denies wheezing Gastrointestinal Gastrointestinal: Reports abdominal pain (Suprapubic), Denies change in bowel habits, Denies diarrhea, Denies nausea and Denies vomiting Genitourinary Denies hematuria, Denies flank pain, Denies urinary incontinence and Denies urinary urgency Musculoskeletal Denies neck pain Integumentary/Breasts Denies pruritus, Denies erythema, Denies rash and Denies wounds Neurologic Denies confusion, Denies loss of vision and Denies weakness Psychiatric Denies anxiety, Denies confusion, Denies depression, Denies homicidal ideation and Denies suicidal ideation Endocrine Denies palpitations Hematologic/Lymphatic Denies easy bruising Allergic/Immunologic Denies wheezing [facility] Medical History Diabetes mellitus (Chronic 04/27/11) Mixed hyperlipidemia (Chronic 04/27/11) Mild intermittent asthma without complication (Chronic 04/27/11) Gastroesophageal reflux disease without esophagitis (Chronic 04/27/11) Essential hypertension (Chronic) Diverticulosis of large intestine without hemorrhage (Chronic 09/21/13) Low back pain without sciatica (Chronic 05/31/15) Type 2 diabetes mellitus with hyperglycemia (Chronic 09/24/15) Body mass index (BMI) of 40.0 to 44.9 in adult (Chronic 04/30/17) Morbid obesity (Chronic 04/30/17) Gastric polyp (Resolved) Surgical History History of bilateral salpingo-oophorectomy (BSO) (Inactive) History of total abdominal hysterectomy (Inactive) Social History marital status: number of children: 2 household members: none lives independently: Yes caregiver/support person: No housing: apartment pets and animals: No education level: high school occupational status: disabled (Retired) 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 Extraoccular muscles are intact bilaterally. There is no subconjunctival hemorrhage or exudate. CHEST: Lungs are clear to auscultation bilaterally and free of wheezes, rales, or rhonchi. Heart rate is regular rhythm, there are no murmurs, clicks, rubs, or gallops. There is no chest wall tenderness. ABD: Abdomen is soft and nontender. There is no guarding or rebound. Bowel sounds are normal in all 4 quadrants. There is no mass or organomegaly. PELVIC: recommended but refused EXT: Full painless ROM of all extremities with no loss of sensation or strength. SKIN: Warm, pink, and dry. No erythema or rash Initial Vital Signs Initial Vital Signs: Vital Signs Temperature 98.0 F 04/26/18 22:41 Pulse Rate 56 L 04/26/18 22:41 Respiratory Rate 16 04/26/18 22:41 Blood Pressure 175/65 H 04/26/18 22:41 Pulse Oximetry 96 04/26/18 22:41 Course Orders Ordered: ED Orders 04/26/18 22:25 Urine Microscopic Stat Discontinued Medications Oxycodone/Acetaminophen (Endocet 5/325 Prepack) 1 bottle MISC SEEINSTR ONE Stop: 04/27/18 00:08 Last Admin: 04/27/18 00:14 Dose: 1 bottle Vital Signs - 8 hr 04/26/18 22:41 04/27/18 00:14 Temperature 98.0 F Pulse Rate 56 L 53 L Respiratory Rate 16 18 Blood Pressure 175/65 H 176/49 H Pulse Oximetry 96 98 MDM - Female Genitourinary Lab Data Lab Results 04/26/18 Range/Units 22:25 Urine RBC None seen (0-5/HPF) Urine WBC None seen (0-5/HPF) Urine Bacteria None seen (None) Ur Culture Indicated? Cult not indicated Micro UA Comment Microscopic normal Urine Dip Bedside Urine Glucose 100 mg/dl Bedside Urine Bilirubin - Negative Bedside Urine Ketone - Negative Urine Specific [place] 1.015 Bedside Urine Occult Blood - Negative Bedside Urine pH 5.5 Bedside Urine Protein - Negative Bedside Urine Urobilinogen - Negative Bedside Urine Nitrite - Negative Bedside Urine Leukocytes - Negative Esterase Discharge Plan Departure Patient Disposition: Home Clinical Impression: Spastic dysuria Discharge Date/Time: 04/27/18 00:14 Interventions: ED Discharge Assessment Last Done: 04/27/18 00:14 Instructions: DI for Dysuria -- Adult Activity Restrictions/Additional Instructions: You have been prescribed narcotic medications. While on these medications you cannot drive or operate heavy machinery. Additionally you cannot sign legal documents or perform any duties such as this. Many people get constipated on narcotic medications so it would be advisable to discuss stool softeners with the pharmacist when you pepper picker your prescription. Please understand that we cannot provide further refills of narcotics or controlled substances through the ED and your pain management will need to be through your Primary Care Provider Prescriptions: No Action albuterol sulfate [Proventil HFA] 90 MCG/PUFF HFA aerosol inhaler 2 puff INH QID Qty: 17 RF: 2 chlorthalidone 25 MG tablet 25 mg PO QDAY Qty: 90 RF: 3 metformin 1,000 MG tablet 1,000 mg PO BID Qty: 180 RF: 3 ibuprofen 600 MG tablet 600 mg PO Q8HP PRNQty: 90 RF: 0 simvastatin [Zocor] 20 MG tablet 20 mg PO QDAY Qty: 90 RF: 3 clotrimazole-betamethasone 15 GM cream 1 roya TP TID Qty: 1 RF: 3 lisinopril 20 MG tablet 20 mg PO QDAY Qty: 90 RF: 1 atenolol 50 MG tablet 25 mg PO QDAY Qty: 90 RF: 3 insulin detemir U-100 [Levemir FlexTouch U-100 Insuln] 100 UNIT/1 ML insulin pen 30 u SQ BID Qty: 15 RF: 5 pen needle, diabetic [BD Ultra-Fine Short Pen Needle] 31 gauge x 5/16 needle .ROUTE .MEDSUPPLY Qty: 300 RF: 12 omeprazole 20 mg capsule,delayed release(DR/EC) 20 mg PO QDAY Qty: 90 RF: 1 glimepiride [Amaryl] 4 mg tablet 4 mg PO AMCC Qty: 30 RF: 3 ranitidine HCl [Acid Control (ranitidine)] 150 mg tablet 150 mg PO BID PRN (Reason: GI upset) Qty: 60 RF: 3 ferrous fumarate [Ferrocite] 324 mg (106 mg iron) tablet 324 mg PO Q DAY Qty: 30 RF: 3 insulin aspart U-100 [Novolog Flexpen U-100 Insulin] 100 unit/mL insulin pen 8 - 28 unit SQ SEE INSTRUCTIONS Qty: 1 RF: 3 insulin glargine [Lantus Solostar U-100 Insulin] 100 unit/mL (3 mL) insulin pen 30 unit SUBCUT DAILY Qty: 15 RF: 6 bimatoprost [Lumigan] 0.01 % drops 1 drop ophthalmic (eye) DAILY RF: 0 docusate sodium [Doc-Q-Lace] 100 mg capsule 100 mg PO BID Qty: 60 RF: 3 hydrocodone-acetaminophen 5-325 mg tablet See Label Instructions PO Q4HP PRN (Reason: pain) Qty: 45 RF: 0 fluticasone [Flovent HFA] 12 GM HFA aerosol inhaler 2 puff INH BID RF: 0 amoxicillin-pot clavulanate [Augmentin] 875-125 mg tablet 1 tab PO BID Qty: 20 RF: 0 Referrals: Jeri Camacho MD [Physician] - Carlos Arrington MD [Primary Care Provider] -
== END 2018-04-27 00:14 | disposition home or self-care (01) ==
PROVIDERS: Emergency Provider Emergency Medicine; Family Provider Internal Medicine; PCP Internal Medicine
DX: R30.0 Dysuria (principal)
CPT/HCPCS: 81003; 81015; 99283

== ENCOUNTER 2018-05-04 17:48 | Observation (INO) | payer MEDICARE, MEDICAID, SELFPAY ==
[2018-05-04 18:08] VITALS: BP 203/66; PULSE 52; RESP 12; TEMP 36.7; O2SAT 99
--- NOTE | 2018-05-04 18:18 | DI.RAD.S_ITS ---
PROCEDURE: XR CHEST 1V INDICATIONS: chest pain/heaviness TECHNIQUE: One view of the chest was acquired. COMPARISON: [facility], , CHEST 1 VIEW, 09/29/2017, 0:56. FINDINGS: Surgical changes and devices: None. Lungs and pleura: No pleural effusions or pneumothorax. Lungs are clear. Mediastinum: Mediastinal contours appear normal. Heart size is normal. Bones and chest wall: No suspicious bony lesions. Overlying soft tissues appear unremarkable. IMPRESSION: No acute cardiopulmonary disease. Dictated by: Saul Mensah M.D. on 05/04/2018 at 19:08 Approved by: Saul Mensah M.D. on 05/04/2018 at 19:08
[2018-05-04 18:30] VITALS: BP 177/56; PULSE 51; RESP 14; O2SAT 98
--- NOTE | 2018-05-04 18:30 | ED.CHESTPAIN ---
HPI - Chest Pain General Chief Complaint: Chest Pain Stated Complaint: WATER RETENTION,ELEVATED BLOOD PRESSURE,HEAVY CHES Time Seen by Provider: 05/04/18 18:30 Source: patient Mode of arrival: ambulatory Limitations: no limitations History of Present Illness HPI narrative: Patient is a 73-year-old female here for evaluation of chest heaviness. She states that approximately 1 week ago she was sitting for an extended period of time while playing bingo. She stated that afterwards she had swelling in bilateral feet. She states that this did go away when she put her feet up. Prior to this time she has never had any symptoms such as this. She states that since then she has had decreased exercise tolerance and had to walk more places secondary to shortness of breath. She is still able to sleep lying flat. She states that 1 other time and this past week her feet have been swollen however they did resolve on their own. She denies any chest pain but does state that she has a ?heaviness? on her chest. She does have an inhaler at home that she has been using which has not helped all that much. No cough no fevers. Has never had a cardiac workup in the past. Is a insulin-dependent diabetic. Related Data Home Medications Medication Instructions Recorded Confirmed insulin glargine [Lantus Solostar 30 unit SUBCUT PRN PRN 05/04/18 05/04/18 U-100 Insulin] Previous Rx's Medication Instructions Recorded chlorthalidone 25 mg PO QDAY #90 tab 07/07/17 simvastatin [Zocor] 20 mg PO QDAY #90 tab 10/05/17 atenolol 25 mg PO QDAY #90 tab 11/10/17 lisinopril 20 mg PO QDAY #90 tab 11/10/17 pen needle, diabetic 31 gauge x #300 each 12/07/1712/15 glimepiride [Amaryl] 4 mg PO AMCC #30 tab 12/31/17 omeprazole 20 mg capsule,delayed 20 mg PO QDAY #90 cap 12/31/17 release ranitidine 150 mg tablet 150 mg PO BID PRN #60 tab 01/19/18 insulin aspart U-100 [Novolog 8 - 28 unit SQ SEE INSTRUCTIONS #1 04/11/18 Flexpen U-100 Insulin] box albuterol sulfate [Proventil HFA] 2 puff INH QID #17 gm 05/02/18 Allergies Allergy/AdvReac Type Severity Reaction Status Date / Time Horse/Equine Containing Allergy Severe Difficulty Verified 04/26/18 22:41 Products Breathing iodine [IODINE] Allergy Severe hives Verified 04/26/18 22:41 ciprofloxacin [CIPROFLOXACIN] AdvReac Intermediate swelling Verified 04/26/18 22:41 tramadol [TRAMADOL] AdvReac Intermediate headache Verified 04/26/18 22:41 rosuvastatin [From CRESTOR] AdvReac Mild Swelling Verified 04/26/18 22:41 in feet Review of Systems Constitutional Denies chills, Denies fever(s) and Reports lethargy Cardiovascular Reports chest pain (Described as a heaviness), Reports diaphoresis, Denies rapid heart rate, Reports pedal edema, Denies irregular heart rhythm, Reports lightheadedness, Denies palpitations and Reports dyspnea on exertion Respiratory Denies cough, Denies pain on inspiration, Reports dyspnea on exertion and Denies wheezing Gastrointestinal Gastrointestinal: Denies nausea and Denies vomiting Musculoskeletal Denies myalgias and Denies arthralgias Integumentary/Breasts Denies lesions and Denies rash Endocrine Denies palpitations Hematologic/Lymphatic Denies easy bleeding and Denies easy bruising Allergic/Immunologic Denies wheezing [facility] Medical History Diabetes mellitus (Chronic 04/27/11) Mixed hyperlipidemia (Chronic 04/27/11) Mild intermittent asthma without complication (Chronic 04/27/11) Gastroesophageal reflux disease without esophagitis (Chronic 04/27/11) Essential hypertension (Chronic) Diverticulosis of large intestine without hemorrhage (Chronic 09/21/13) Low back pain without sciatica (Chronic 05/31/15) Type 2 diabetes mellitus with hyperglycemia (Chronic 09/24/15) Body mass index (BMI) of 40.0 to 44.9 in adult (Chronic 04/30/17) Morbid obesity (Chronic 04/30/17) Gastric polyp (Resolved) Surgical History History of bilateral salpingo-oophorectomy (BSO) (Inactive) History of total abdominal hysterectomy (Inactive) Social History marital status: number of children: 2 household members: none lives independently: Yes caregiver/support person: No housing: apartment pets and animals: No education level: high school occupational status: disabled (Retired) 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 leisure activities: games ([employer]) and reading ([employer] Smoking Status: Never smoker Tobacco: How many years used: 0 quit status: quit date established (Never Started) second hand exposure: Yes (Childhood) alcohol intake: current substance use type: does not use Exam Initial Vital Signs Initial Vital Signs: Vital Signs Temperature 98.1 F 05/04/18 18:08 Pulse Rate 52 L 05/04/18 18:08 Respiratory Rate 12 05/04/18 18:08 Blood Pressure 203/66 H 05/04/18 18:08 Pulse Oximetry 99 05/04/18 18:08 Const General: cooperative, healthy appearing, comfortable, well developed, well groomed and No acute distress Orientation: alert, awake and oriented x3 HENMT Head: normal to inspection and normocephalic Resp Effort & Inspection: normal respiratory effort Auscultation: clear to auscultation bilaterally Cardio Rate: regular rate Rhythm: regular rhythm Heart Sounds: no murmurs Pulses: radial pulses present GI Inspection: non-distended Palpation: soft, No firm, No guarding and No tender Back/Spine/Pelvis Back: No CVA tenderness Skin Lesions: no lesions Rashes: no rashes Neuro General: alert, awake and oriented x3 Cognition: normal cognition Speech: speech normal Motor: muscle tone normal throughout Sensory Exam: no sensory deficits noted Extrem General: normal to inspection and capillary refill normal Psych Appearance: grossly normal and well kempt Scores HEART Score Heart Score history: Moderately Suspicious Heart Score EKG: Non-Specific repolarization disturbance Heart Score Age: > or = 65 years old Heart Score risk factors: 1-2 risk factors Heart Score troponin: < or = to normal limit Heart Score Total: 5 Course Orders Ordered: ED Orders 05/04/18 18:15 B Type Natriuretic Peptide Stat Complete Blood Count AUTO DIFF Stat Comprehensive Metabolic Panel Stat Lipase Stat Troponin & CK Cardiac Panel Stat 05/04/18 18:18 XR chest 1V Stat EKG-12 Lead Stat 05/04/18 20:21 Consult to Physician Routine 05/05/18 00:10 Troponin I Stat 05/05/18 06:00 Troponin I Stat 05/05/18 20:00 EC echo doppler complete Stat Albuterol (Ventolin Hfa) 2 puff INH QID [facility] Atenolol (Tenormin) 25 mg PO DAILY [facility] Glimepiride (Amaryl) 4 mg PO 1700 [facility] Insulin Glargine (Lantus Solostar (Pen)) 0 unit SUBCUT PRN PRN PRN Reason: hyperglycemia Lisinopril (Zestril) 20 mg PO DAILY [facility] Ranitidine HCl (Zantac) 150 mg PO BID PRN PRN Reason: GERD Discontinued Medications Aspirin (Aspirin Chew) 324 mg PO NOW ONE Stop: 05/04/18 18:32 Last Admin: 05/04/18 19:21 Dose: 324 mg Glimepiride (Amaryl) 4 mg PO DAILYCC [facility] Glyburide (Glyburide) 4 mg PO DAILY@1700 [facility] Influenza Virus Vaccine (Flu Vaccine) 0.5 ml IM .ONCE ONE Stop: 05/04/18 21:20 Vital Signs - 8 hr 05/04/18 18:08 05/04/18 18:30 05/04/18 19:00 Temperature 98.1 F Pulse Rate 52 L 51 L 52 L Respiratory Rate 12 14 19 Blood Pressure Blood Pressure [Right Arm] 203/66 H 177/56 H 163/71 H Pulse Oximetry 99 98 100 05/04/18 20:17 05/04/18 21:10 05/05/18 01:15 Temperature 98.2 F 98.0 F Pulse Rate 49 L 50 L 53 L Respiratory Rate 14 22 16 Blood Pressure 186/70 H 141/65 H Blood Pressure [Right Arm] 159/87 H Pulse Oximetry 100 100 97 MDM - Chest Pain Lab Data Attestation: I reviewed the patient's lab results. Result diagrams: 05/04/18 18:15 05/04/18 18:15 Lab Results 05/04/18 05/04/18 05/05/18 Range/Units 18:15 18:15 00:10 WBC 11.1 H (4.5-11.0) X10^3/uL RBC 3.60 L (4.0-5.2) X10^6/uL Hgb 10.6 L (12.0-16.0) g/dL Hct 32.0 L (36-46) % MCV 89.0 (80-100) fL MCH 29.6 (26-34) PG MCHC 33.2 (30-36) % RDW 13.7 (11.6-14.8) % Plt Count 280 (150-400) X10^3/uL Neut % (Auto) 64.5 (50-75) % Lymph % (Auto) 25.6 (25-40) % [place] % (Auto) 6.1 (3-14) % Eos % (Auto) 3.3 (2-4) % Baso % (Auto) 0.5 (0-2) % Neut # (Auto) 7200 H (6256-5867) /uL Sodium 143 (137-145) mmol/L Potassium 4.3 (3.4-5.1) mmol/L Chloride 105 (98-107) mmol/L Carbon Dioxide 26 (22-32) mmol/L BUN 16 (7-17) mg/dL Creatinine 1.00 (0.52-1.04) mg/dL Estimated GFR 54.7 L (>60) mL/min BUN/Creatinine Ratio 16.0 (6-22) Glucose 89 (80-110) mg/dL Calcium 9.3 (8.4-10.2) mg/dL Total Bilirubin 0.6 (0.2-1.3) mg/dL AST 17 (14-36) IU/L ALT 18 (9-52) IU/L Alkaline Phosphatase 60 (38-126) U/L Total Creatine Kinase 78 (30-135) U/L CK-MB (CK-2) TNP CK-MB (CK-2) Rel Index TNP Troponin I < 0.012 < 0.012 (0.01-0.034) ng/mL B-Natriuretic Peptide 385.0 H (<100) Total Protein 7.5 (6.3-8.2) g/dL Albumin 4.2 (3.5-5.0) g/dL Globulin 3.3 (1.7-4.1) g/dL Albumin/Globulin Ratio 1.3 (1.0-2.8) Lipase 306 H (23-300) U/L Urine Dip Bedside Urine Glucose Negative Bedside Urine Bilirubin - Negative Bedside Urine Ketone - Negative Urine Specific [place] 1.010 Bedside Urine Occult Blood - Negative Bedside Urine pH 7.0 Bedside Urine Protein - Negative Bedside Urine Urobilinogen - Negative Bedside Urine Nitrite - Negative Bedside Urine Leukocytes - Negative Esterase Imaging Data Chest x-ray: Radiologist's impression: [address] [address] XRay Report Signed Patient: Vijaya Mckeon JMR#: [id number] : 7Acct:[id number] Age/Sex: 73 / FDate of Service: 05/04/18 Loc: ED Accession Number: [id number] Procedure: XR chest 1V Ordering Provider: Jason Patterson D.O. PROCEDURE: XR CHEST 1V INDICATIONS: chest pain/heaviness TECHNIQUE: One view of the chest was acquired. COMPARISON: [facility], , CHEST 1 VIEW, 09/29/2017, 0:56. FINDINGS: Surgical changes and devices: None. Lungs and pleura: No pleural effusions or pneumothorax. Lungs are clear. Mediastinum: Mediastinal contours appear normal. Heart size is normal. Bones and chest wall: No suspicious bony lesions. Overlying soft tissues appear unremarkable. IMPRESSION: No acute cardiopulmonary disease. Dictated by: Saul Mensah M.D. on 05/04/2018 at 19:08 Approved by: Saul Mensah M.D. on 05/04/2018 at 19:08 ECG Data Attestation: I personally reviewed and interpreted this ECG as follows: Prior ECG tracings: not available for review Interpretation: Sinus bradycardia Ventricular rate of 49 Normal axis Normal QRS Normal QTC Inverted T-waves lead 3, V1 V2 V3 Flattening T-waves AVF MDM Narrative Medical decision making narrative: Clinically not in heart failure. I does have a slightly elevated BNP but lungs are clear. Has minimal any lower extremity swelling at the time of my evaluation. Does not hypotensive. Is an insulin-dependent diabetic. Has had chest heaviness that has been worsening over the past couple days. She was given an aspirin here in the ER. Has nonspecific EKG changes. Initial troponin was negative. I discussion with the patient regarding her symptoms. Has a heart score of 5. Discussed the case with Dr. Granado who is on-call for the patient's primary care doctor. Will admit for observation and trending of enzymes and echo and stress test within the next day or so. I discussed this with the patient. She expressed understanding and agreement with plan. Discharge Plan Departure Patient Disposition: Admitted as Observation Clinical Impression: Dyspnea on exertion, Diabetes mellitus, Chest discomfort Discharge Date/Time: 05/04/18 20:53 Interventions: ED Discharge Assessment Last Done: 05/04/18 20:53 Admit Date/Time: 05/04/18 20:27 Admit Provider: Ladarius Granado
[2018-05-04 18:39] LABS: Add Manual Diff / Slide Review NO; Basophils Percent Auto 0.5 % (0-2); Eosinophils Percent Auto 3.3 % (2-4); Hemoglobin 10.6 g/dL (12.0-16.0); Lymphocytes Percent Auto 25.6 % (25-40); Mean Corpuscular HGB Conc 33.2 % (30-36); Mean Corpuscular Hemoglobin 29.6 PG (26-34); Monocytes Percent Auto 6.1 % (3-14); Neutrophils Absolute Auto 7200 /uL (3000-5900); Neutrophils Percent Auto 64.5 % (50-75); Platelet Count 280 X10^3/uL (150-400); Red Cell Distribution Width 13.7 % (11.6-14.8); White Blood Cell Count 11.1 X10^3/uL (4.5-11.0)
[2018-05-04 18:45] LABS: Alanine Aminotransferase 18 IU/L (9-52); Albumin 4.2 g/dL (3.5-5.0); Albumin Globulin Ratio 1.3 (1.0-2.8); Alkaline Phosphatase 60 U/L (38-126); Aspartate Aminotransferase 17 IU/L (14-36); Bilirubin Total 0.6 mg/dL (0.2-1.3); Blood Urea Nitrogen 16 mg/dL (7-17); Calcium 9.3 mg/dL (8.4-10.2); Carbon Dioxide 26 mmol/L (22-32); Chloride 105 mmol/L (98-107); Creatine Kinase 78 U/L (30-135); Estimated Glomerular Filt Rate 54.7 mL/min (>60); Globulin 3.3 g/dL (1.7-4.1); Glucose 89 mg/dL (80-110); HEMOLYSIS < 15 (0-50); Lipase 306 U/L (23-300); Potassium 4.3 mmol/L (3.4-5.1); Sodium 143 mmol/L (137-145); Total Protein 7.5 g/dL (6.3-8.2)
[2018-05-04 19:00] VITALS: BP 163/71; PULSE 52; RESP 19; O2SAT 100
[2018-05-04 19:01] LABS: Troponin I < 0.012 ng/mL (0.01-0.034)
[2018-05-04] MEDS: ASPIRIN 81 MG TAB 324 MG PO (19:21)
[2018-05-04 20:17] VITALS: BP 159/87; PULSE 49; RESP 14; O2SAT 100
[2018-05-04 21:10] VITALS: BP 186/70; PULSE 50; RESP 22; TEMP 36.8; O2SAT 100
[2018-05-04 21:12] VITALS: BMI 42.3
--- NOTE | 2018-05-04 22:07 | PC.NURSE ---
admit pt to ac from ER at 2119. VSS. alert and oriented. denies chest pain/pressure. states has been having increased resp effort with exertion x3 days. not currently present. states has noticed edema to feet (dependant). tele monitor on. Dinner provided. oriented to room and plan of care. instructed to notify RN if any chest pain occurs.
[2018-05-05] VITALS (7 sets, daily range): BP systolic 141–178; BP diastolic 59–72; PULSE 45–53; RESP 16–20; TEMP 36.7–36.8; O2SAT 97–98
[2018-05-05 01:06] LABS: Troponin I < 0.012 ng/mL (0.01-0.034)
[2018-05-05] MEDS: INSULIN GLARGINE 100 UNIT/ML 3ML PEN SUBCUT (01:48)
[2018-05-05 07:04] LABS: Troponin I 0.012 ng/mL (0.01-0.034)
[2018-05-05] MEDS: LISINOPRIL 20 MG TABLET PO (08:19)
--- NOTE | 2018-05-05 09:47 | PM.HP.1 ---
History of Present Illness Date Patient Seen: 05/05/18 Time Patient Seen: 08:47 Chief complaint: WATER RETENTION,ELEVATED BLOOD PRESSURE,HEAVY CHES Narrative: 73-year-old diabetic female who presented to the ER last evening with symptoms of increased lower extremity dependent edema for about a week. Also complaining of some chest fullness tightness as she describes it feels like she is filling up with water although not affecting her breathing. She gets dyspneic with activity but that is been pretty consistent. She feels much better when she lays down her her leg swelling go down when she lies down. Denies any chest pain. Has not had any cough. No palpitations. No syncope near syncope. Did forget her chlorthalidone for blood pressure on several days around the time this started Patient History Medical History Diabetes mellitus (Chronic 04/27/11) Mixed hyperlipidemia (Chronic 04/27/11) Mild intermittent asthma without complication (Chronic 04/27/11) Gastroesophageal reflux disease without esophagitis (Chronic 04/27/11) Essential hypertension (Chronic) Diverticulosis of large intestine without hemorrhage (Chronic 09/21/13) Low back pain without sciatica (Chronic 05/31/15) Type 2 diabetes mellitus with hyperglycemia (Chronic 09/24/15) Body mass index (BMI) of 40.0 to 44.9 in adult (Chronic 04/30/17) Morbid obesity (Chronic 04/30/17) Gastric polyp (Resolved) Surgical History History of bilateral salpingo-oophorectomy (BSO) (Inactive) History of total abdominal hysterectomy (Inactive) Family & Social History Family History: Reviewed 05/05/18 by Carlos Arrington MD Social History: household members none Prior Living Arrangements Apartment/Condo lives independently Yes caregiver/support person No Safety & Behavioral: Feels Safe in Current Yes Environment Been Physically Hurt or No Threatened By a Person Suicidal Ideation Description None Suicide Plan Description No Plan Tobacco & Substance use: Smoking Status Never smoker alcohol intake current alcohol intake frequency holiday/special occasion Substance Use Type does not use Meds Home Medications Medication Instructions Recorded Confirmed Type chlorthalidone 25 mg PO QDAY #90 tab 07/07/17 05/04/18 Rx simvastatin [Zocor] 20 mg PO QDAY #90 tab 10/05/17 05/04/18 Rx atenolol 25 mg PO QDAY #90 tab 11/10/17 05/04/18 Rx lisinopril 20 mg PO QDAY #90 tab 11/10/17 05/04/18 Rx pen needle, diabetic 31 gauge x #300 each 12/07/17 04/07/18 Rx 12/15 glimepiride [Amaryl] 4 mg PO AMCC #30 tab 12/31/17 05/04/18 Rx omeprazole 20 mg capsule,delayed 20 mg PO QDAY #90 cap 12/31/17 05/04/18 Rx release ranitidine 150 mg tablet 150 mg PO BID PRN #60 tab 01/19/18 05/04/18 Rx insulin aspart U-100 [Novolog 8 - 28 unit SQ SEE INSTRUCTIONS #1 04/11/18 05/04/18 Rx Flexpen U-100 Insulin] box albuterol sulfate [Proventil HFA] 2 puff INH QID #17 gm 05/02/18 05/04/18 Rx insulin glargine [Lantus Solostar 30 unit SUBCUT PRN PRN 05/04/18 05/04/18 History U-100 Insulin] Allergies Allergy/AdvReac Type Severity Reaction Status Date / Time Horse/Equine Containing Allergy Severe Difficulty Verified 04/26/18 22:41 Products Breathing iodine [IODINE] Allergy Severe hives Verified 04/26/18 22:41 ciprofloxacin [CIPROFLOXACIN] AdvReac Intermediate swelling Verified 04/26/18 22:41 tramadol [TRAMADOL] AdvReac Intermediate headache Verified 04/26/18 22:41 rosuvastatin [From CRESTOR] AdvReac Mild Swelling Verified 04/26/18 22:41 in feet Review of Systems Constitutional Constitutional: Denies excessive sweating, Denies fever(s), Denies headache(s), Denies weakness, Denies weight gain and Denies weight loss Eyes Eyes: Denies change in vision, Denies itchy eyes, Denies loss of vision and Denies other visual disturbances ENT Ears, Nose, Mouth, and Throat: No difficulty swallowing, No headache(s) and No neck pain Cardiovascular Cardiovascular: Denies chest pain, Denies fainting, Denies fast heart rate, Denies irregular heart rhythm, Reports leg swelling, Denies rapid, pounding, or irregular heartbeat, Denies shortness of breath, Denies shortness of breath with activity and Denies slow heart rate Respiratory Respiratory: Denies dyspnea and Denies dyspnea on exertion Gastrointestinal Gastrointestinal: Denies abdominal pain, Denies bloating, Denies change in bowel habits, Denies change in stool character, Denies dysphagia, Denies nausea, Denies vomiting and Denies hematemesis Genitourinary Genitourinary: Denies hematuria, Denies urinary frequency and Denies difficulty voiding Musculoskeletal Musculoskeletal: Denies abnormal gait, Denies myalgias, Denies arthralgias, Denies limited range of motion and Denies neck pain Integumentary/Breasts Skin/Breast: Denies bleeding lesions, Denies change in pigmentation, Denies changing lesions, Denies new lesions, Denies rash, Denies skin swelling, Denies sores and Denies jaundice Neurologic Neurologic: Denies abnormal gait, Denies behavioral changes, Denies confusion, Denies syncope, Denies headache(s), Denies loss of vision, Denies memory loss and Denies weakness Psychiatric Psychiatric: Denies behavioral changes, Denies change in appetite, Denies confusion, Denies difficulty concentrating, Denies auditory hallucinations, Denies memory loss, Denies mood swings and Denies suicidal ideation Endocrine Endocrine: Denies excessive sweating and Denies palpitations Comments: No change in blood sugar numbers overall Hematologic/Lymphatic Hematologic/Lymphatic: Denies easy bleeding, Denies easy bruising and Denies lymphadenopathy Allergic/Immunologic Allergic/Immunologic: Denies itchy eyes Exam Vital Signs (past 8 hours): - 05/05/18 05:30 05/05/18 08:00 05/05/18 08:09 Temperature 98.0 F 98.0 F Pulse Rate 53 L 50 L 52 L Respiratory Rate 18 16 18 Blood Pressure 145/64 H 143/72 H Pulse Oximetry 98 98 97 Oxygen Delivery Method Room Air Oxygen Flow Rate 0 Narrative Exam Narrative: HEENT-unremarkable, normocephalic atraumatic Neck-no lymphadenopathy no bruits Lungs-clear anteriorly and posteriorly no wheezes no crackles good breath sounds Heart-regular rate and rhythm no murmur rub or gallop normal S1-S2 Abdomen-positive bowel tones soft nontender nondistended no hepatosplenomegaly no masses palpable Neuro-normal to screening exam, gait not tested Extremities-no cyanosis clubbing or edema (maybe trace edema at the ankles, bilaterally, only) Objective Labs Result Diagrams: 05/04/18 18:15 05/04/18 18:15 Labs: Laboratory Results - last 24 hr 05/04/18 05/04/18 10 18:15 18:15 00:10 WBC 11.1 H RBC 3.60 L Hgb 10.6 L Hct 32.0 L MCV 89.0 MCH 29.6 MCHC 33.2 RDW 13.7 Plt Count 280 Neut % (Auto) 64.5 Lymph % (Auto) 25.6 [place] % (Auto) 6.1 Eos % (Auto) 3.3 Baso % (Auto) 0.5 Neut # (Auto) 7200 H Sodium 143 Potassium 4.3 Chloride 105 Carbon Dioxide 26 BUN 16 Creatinine 1.00 Estimated GFR 54.7 L BUN/Creatinine Ratio 16.0 Glucose 89 Calcium 9.3 Total Bilirubin 0.6 AST 17 ALT 18 Alkaline Phosphatase 60 Total Creatine Kinase 78 CK-MB (CK-2) TNP CK-MB (CK-2) Rel Index TNP Troponin I < 0.012 < 0.012 B-Natriuretic Peptide 385.0 H Total Protein 7.5 Albumin 4.2 Globulin 3.3 Albumin/Globulin Ratio 1.3 Lipase 306 H 05/05/18 06:25 WBC RBC Hgb Hct MCV MCH MCHC RDW Plt Count Neut % (Auto) Lymph % (Auto) [place] % (Auto) Eos % (Auto) Baso % (Auto) Neut # (Auto) Sodium Potassium Chloride Carbon Dioxide BUN Creatinine Estimated GFR BUN/Creatinine Ratio Glucose Calcium Total Bilirubin AST ALT Alkaline Phosphatase Total Creatine Kinase CK-MB (CK-2) CK-MB (CK-2) Rel Index Troponin I 0.012 B-Natriuretic Peptide Total Protein Albumin Globulin Albumin/Globulin Ratio Lipase Assessment & Plan Plan: Assessment/Plan Narrative: Patient's lower extremity edema is almost certainly noncardiac and related to multiple factors including her obesity her chronic diuretic therapy and having missed several doses her relative inactivity with extended periods of time with her feet dependent etc. She does not really have any clear symptoms of orthopnea or PND to make me think there is anything more to it than that However she does have this symptom of chest fullness and/or filling up with fluid and a slightly elevated BNP. I would therefore start with echocardiography and re-evaluate based on results Patient's chest symptom could also be consistent with cardiac ischemia although that seems less likely given her series of normal troponin and the lack of ECG changes However I do think she would deserve stress testing but probably does not need to remain hospitalized to have this performed unless there is some unexpected finding on her echocardiogram Patient's diabetes will try and make her usual insulin dosing which is really preprandial insulin dosing was short-acting insulin. She very rarely uses long-acting insulin. Continue with her oral meds. Patient's obesity of course is contributing to her presentation I believe to her diabetes and will affect her care here as well Quality VTE Deep Vein Thrombosis/Pulmonary Embolism Present on Admission: No
[2018-05-05] MEDS: PANTOPRAZOLE 20 MG TABLET PO (09:48)
[2018-05-05] MEDS: SODIUM CHLORIDE 0.9% FLUSH 10 ML IV (09:51)
[2018-05-05] MEDS: ATENOLOL 25 MG TABLET PO ×3 (09:52→10:15)
[2018-05-05] MEDS: FUROSEMIDE 20 MG TABLET PO (09:55)
--- NOTE | 2018-05-05 10:41 | CM.DANOTE ---
DCP:Case received, EMR reviewed and met with patient. Introduced self and role. DCP template completed with information currently available. Patient is a 73 year old female who admitted yesterday evening to the care of the hospitalist team. PCP: Dr. Arrington. Payer: confirmed: Medicare/Medicaid. Patient came in with symptoms of water retention, elevated blood pressure, as well as heaviness in her chest. Patient is alert and oriented. Lives at home in [place] alone, and is independent. Stated that she does have a grandauter, who is a certified nurse practitioner, that can help her with any needs she may need at home for discharge. : DCP to continue to assess. Plan is for patient to go home when stable. Desiree Perez, Operations And Maintenance Supervisor
[2018-05-05] MEDS: INSULIN ASPART 100 UNIT/ML INSULN PEN SUBCUT (12:02)
--- NOTE | 2018-05-05 12:56 | PC.NURSE ---
Pt up to bathroom with SBA. Denies chest pain or heaviness. Plan to do echo today at 1500 hours. Pt advised.
--- NOTE | 2018-05-05 14:52 | PC.NURSE ---
Pt now having echo. Heart rate has been in the 40s since noon. Attempts to reach Dr Arrington were made. Continue to monitor on telemetry. Pt asymptomatic and denies chest pain.
--- NOTE | 2018-05-05 14:56 | PC.NURSE ---
Dr Arrington advised about pt's bradycardia. No new orders at this time.
--- NOTE | 2018-05-05 16:36 | PC.NURSE ---
Pt lying quietly in bed awake and alert. Denies pain. ICU has notified this remote mortgage underwriter of pt's heartrate briefly @ 40 bpm and currently @ 45 bpm. This remote mortgage underwriter inquired of pt if feeling any lightheadedness or dizziness when up. Discussed with pt heartrate in 40's and administration of atenolol. Pt reports has been on this med for some time and states HR is in the upper 40's at home. Of note, dayswaft RN informed this remote mortgage underwriter during shift report that MD was made aware of pt's HR 42-43 on dayswaft. Discharge orders per MD have been entered.
--- NOTE | 2018-05-05 17:33 | P.DS_ITS ---
History of Present Illness Chief complaint: WATER RETENTION,ELEVATED BLOOD PRESSURE,HEAVY CHES Narrative: 73-year-old diabetic female who presented to the ER last evening with symptoms of increased lower extremity dependent edema for about a week. Also complaining of some chest fullness tightness as she describes it feels like she is filling up with water although not affecting her breathing. She gets dyspneic with activity but that is been pretty consistent. She feels much better when she lays down her her leg swelling go down when she lies down. Denies any chest pain. Has not had any cough. No palpitations. No syncope near syncope. Did forget her chlorthalidone for blood pressure on several days around the time this started Discharge Providers Date of admission: 05/04/18 20:27 Primary care physician: Carlos Arrington MD Consults: 05/04/18 20:21 Consult to Physician Routine Comment: Consulting Provider: Ladarius Granado Reason for consultation: admission Discharge provider: Carlos Arrington MD Discharge Date: 05/05/18 Summary Discharge Diagnosis: 1. Peripheral edema 2. Atypical chest pain 3. Diabetes type 2 on chronic insulin 4. Obesity with BMI 42.4 5. GERD 6. Hypertension 7. Bradycardia Hospital Course: Patient was admitted to the hospital floor on telemetry. She was somewhat bradycardic. Serial enzymes were negative including troponin and CPK Echocardiogram was performed which showed normal left ventricular function essentially normal valvular function Patient in no recurrence of her chest symptoms which were not pain but some sort of pressure discomfort. Her peripheral edema resolved nicely with elevation of her feet Given the above was elected to discharge her home on the slightly higher dose or stronger diuretic medication. She will have an outpatient stress test to ensure no evidence of coronary ischemia as a cause of any symptoms Her diabetes was adequately controlled during this hospitalization Status at Discharge Functional status at discharge: independent ambulation Overall status at discharge: patient is back to baseline Exam Vital Signs (past 8 hours): - 05/05/18 12:19 05/05/18 12:40 05/05/18 16:14 Temperature 98.2 F 98.1 F Pulse Rate 52 L 45 L Respiratory Rate 20 18 Blood Pressure 178/70 H 144/59 H Pulse Oximetry 97 97 97 Oxygen Delivery Method Room Air Oxygen Flow Rate 0 Objective Labs Result Diagrams: 05/04/18 18:15 05/04/18 18:15 Labs: Laboratory Results - last 24 hr 05/04/18 05/04/18 05/05/18 18:15 18:15 00:10 WBC 11.1 H RBC 3.60 L Hgb 10.6 L Hct 32.0 L MCV 89.0 MCH 29.6 MCHC 33.2 RDW 13.7 Plt Count 280 Neut % (Auto) 64.5 Lymph % (Auto) 25.6 [place] % (Auto) 6.1 Eos % (Auto) 3.3 Baso % (Auto) 0.5 Neut # (Auto) 7200 H Sodium 143 Potassium 4.3 Chloride 105 Carbon Dioxide 26 BUN 16 Creatinine 1.00 Estimated GFR 54.7 L BUN/Creatinine Ratio 16.0 Glucose 89 Calcium 9.3 Total Bilirubin 0.6 AST 17 ALT 18 Alkaline Phosphatase 60 Total Creatine Kinase 78 CK-MB (CK-2) TNP CK-MB (CK-2) Rel Index TNP Troponin I < 0.012 < 0.012 B-Natriuretic Peptide 385.0 H Total Protein 7.5 Albumin 4.2 Globulin 3.3 Albumin/Globulin Ratio 1.3 Lipase 306 H 05/05/18 06:25 WBC RBC Hgb Hct MCV MCH MCHC RDW Plt Count Neut % (Auto) Lymph % (Auto) [place] % (Auto) Eos % (Auto) Baso % (Auto) Neut # (Auto) Sodium Potassium Chloride Carbon Dioxide BUN Creatinine Estimated GFR BUN/Creatinine Ratio Glucose Calcium Total Bilirubin AST ALT Alkaline Phosphatase Total Creatine Kinase CK-MB (CK-2) CK-MB (CK-2) Rel Index Troponin I 0.012 B-Natriuretic Peptide Total Protein Albumin Globulin Albumin/Globulin Ratio Lipase Discharge Plan Discharge Plan Patient Disposition: Home Discharge Med Rec/Prescriptions Prescriptions: New furosemide 20 mg Tablet 20 mg PO DAILY Qty: 30 RF: 10 potassium chloride 10 mEq tablet extended release 10 meq PO DAILY Qty: 30 RF: 7 Continue simvastatin [Zocor] 20 MG tablet 20 mg PO QDAY Qty: 90 RF: 3 lisinopril 20 MG tablet 20 mg PO QDAY Qty: 90 RF: 1 atenolol 50 MG tablet 25 mg PO QDAY Qty: 90 RF: 3 pen needle, diabetic [BD Ultra-Fine Short Pen Needle] 31 gauge x 5/16 needle .ROUTE .MEDSUPPLY Qty: 300 RF: 12 omeprazole 20 mg capsule,delayed release(DR/EC) 20 mg PO QDAY Qty: 90 RF: 1 glimepiride [Amaryl] 4 mg tablet 4 mg PO AMCC Qty: 30 RF: 3 ranitidine HCl [Acid Control (ranitidine)] 150 mg tablet 150 mg PO BID PRN (Reason: GI upset) Qty: 60 RF: 3 insulin aspart U-100 [Novolog Flexpen U-100 Insulin] 100 unit/mL insulin pen 8 - 28 unit SQ SEE INSTRUCTIONS Qty: 1 RF: 3 albuterol sulfate [Proventil HFA] 90 mcg/actuation HFA aerosol inhaler 2 puff INH QID Qty: 17 RF: 3 insulin glargine [Lantus Solostar U-100 Insulin] 100 unit/mL (3 mL) insulin pen 30 unit SUBCUT PRN PRN (Reason: Hyperglycemia) RF: 0 Discontinued chlorthalidone 25 MG tablet 25 mg PO QDAY Qty: 90 RF: 3 Follow up/Referrals: Carlos Arrington MD [Primary Care Provider] - 2 Weeks (we will call with appointment for stress test) Provider Discharge Instructions Diet: Carb-consistent/Diabetic Visit Report/Discharge Packet Visit Report Forms: Congestive Heart Failure, Stroke Signs & Symptoms Discharge Data Primary Care Provider: Carlos Arrington Attending Provider: Carlos Arrington Admit Date/Time: 05/04/18 20:27 Quality VTE Deep Vein Thrombosis/Pulmonary Embolism Present on Admission: No
--- NOTE | 2018-05-05 17:57 | PC.NURSE ---
IV dc'd and tele dc'd in preparation for discharge. Bleeding @ iv site with removal. Pressure applied followed by pressure dressing to left forearm. No further bleeding through dressing. Dr. Arrington in to see patient and answer questions. Pt dresses self. Is independent in all ADL's. Declines evening diabetic agents stating will manage at home.
--- NOTE | 2018-05-05 20:00 | DI.ECHO.S_ITS ---
[facility] +---------+ [facility] +---------+ : : [address] : : : [place], [place] : : : : [id number] : : : : Phone: [phone]+ Echocardiogram Report + + :Name: SERGEY GEIGER Study Date: 05/05/2018 Height: 64 in : :[facility] Exam Location: [facility] Weight: 246 lb : : Gender: Female BSA: 2.1 m2 : :: 1945 Age: 73 yrs BP: 143/72 mmHg: :Reason For Study: CHF : :Ordering Physician: Nina : :Hospitalist Performed By: Felicitas Wu : :Referring: BURT ALMANZA : + + Interpretation Summary The ejection fraction is estimated to be 55-60%. There are no obvious focal wall motion abnormalities noted but poor endocardial definition reduces the sensitivity for the detection of such. At least mild MR. There is trace aortic regurgitation. Procedure: A two-dimensional transthoracic echocardiogram with color flow and Doppler was performed. The study quality was technically difficult. Comparison is made with the echocardiogram of 07/09/11. The patient was in a bradycardic rhythm during the exam. Left Ventricle: The left ventricle is normal in size. The left ventricular ejection fraction is normal. The ejection fraction is estimated to be 55-60%. There are no obvious focal wall motion abnormalities noted but poor endocardial definition reduces the sensitivity for the detection of such. Diastolic parameters suggest a pseudonormalization pattern, consistent with probable elevated filling pressures. Right Ventricle: The right ventricle grossly appears normal in size with probable normal systolic function. Atria: The left atrium is borderline dilated. Right atrial size is normal. There is no Doppler evidence for an interatrial shunt. Mitral Valve: The mitral valve leaflets appear mildly thickened, but open well. At least mild MR. Aortic Valve: The aortic valve is normal in structure and function. There is trace aortic regurgitation. Tricuspid Valve: The tricuspid valve is normal. There is a trace or physiologic amount of tricuspid regurgitation. Pulmonary artery pressures cannot be estimated because of the lack of a measurable TR jet velocity. Pulmonic Valve: The pulmonic valve is not well visualized. Great Vessels: The aortic root is normal size. The ascending aorta is normal in size. The aortic arch could not be visualized. The pulmonary is not well visualized. The IVC is of normal diameter and collapses greater than 50% with a sniff. This suggests a low right atrial pressure of 3 mm Hg. Pericardium/ Pleura There is no pericardial effusion. There is no pleural effusion. MMode/2D Measurements & Calculations LVIDd: 4.2 cm LVOT diam: 2.2 cm LVIDs: 2.7 cm Ao root diam: 3.3 cm FS: 36.1 % asc Aorta Diam: 3.3 cm EPSS: 0.26 cm IVSd: 1.1 cm LVPWd: 1.2 cm LV parish. diameter/BSA (cm/m^2): 2.0 LV sys. diameter/BSA (cm/m^2): 1.3 LA A2 area: 24.1 cm2 RA long axis: 5.3 cm LA A4 area: 21.6 cm2 RA area: 19.2 cm2 LA length (vol): 5.7 cm RA vol: 58.8 ml LA vol: 77.5 ml RA : 27.5 ml/m2 LA vol index: 36.3 ml/m2 IVC diam: 1.8 cm TAPSE: 2.3 cm Doppler Measurements & Calculations Ao V2 max: 95.0 cm/sec LVOT Max Philippe: 83.4 cm/sec Ao V2 mean: 65.1 cm/sec LV V1 max P.8 mmHg Ao max P.6 mmHg LV V1 VTI: 21.6 cm Ao mean P.8 mmHg SAL(I,D): 3.0 cm2 Ao V2 VTI: 27.4 cm SAL(V,D): 3.3 cm2 sev ratio: 0.79 SAL indexed to BSA (cm^2/m^2): 1.4 MV E max philippe: 130.2 cm/sec PA V2 max: 79.4 cm/sec MV A max philippe: 65.2 cm/sec PA V2 mean: 58.0 cm/sec MV E/A: 2.0 PA mean P.5 mmHg Med Peak E' Philippe: 8.9 cm/sec PA pr(Accel): -15.8 mmHg E/E' med: 14.5 Lat Peak E' Philippe: 8.4 cm/sec E/E' lat: 15.5 E/e' average: 15.0 MV dec time: 0.16 sec MV P1/2t: 48.0 msec MV P1/2t max philippe: 129.4 cm/sec MVA(P1/2t): 4.6 cm2 Reading Physician:03:23 PM
== END 2018-05-05 18:02 | disposition home or self-care (01) ==
LOC: ED 20:21 → AC 20:27
PROVIDERS: Admitting Provider Family Medicine; Emergency Provider Emergency Medicine; Family Provider Internal Medicine; PCP Internal Medicine; Visit Provider Internal Medicine
DX: R07.9 Chest pain, unspecified (principal); E11.9 Type 2 diabetes mellitus without complications; Z79.4 Long term (current) use of insulin; E78.5 Hyperlipidemia, unspecified; J45.909 Unspecified asthma, uncomplicated; I10 Essential (primary) hypertension; R60.0 Localized edema; E66.01 Morbid (severe) obesity due to excess calories; Z68.41 Body mass index [BMI] 40.0-44.9, adult; M54.5 Low back pain; K21.9 Gastro-esophageal reflux disease without esophagitis
CPT/HCPCS: 36415; 36591; 71045; 80053; 81003; 82550; 82962; 83690; 83880; 84484; 85025; 93005; 93010; 93306; 94760; 94762; 99235; 99283; 99285; G0378

== ENCOUNTER → 2018-05-12 08:11 | Outpatient (CLI) | payer MEDICARE, MEDICAID, SELFPAY ==
[2018-05-04 21:12] VITALS: BMI 42.3
--- NOTE | 2018-05-12 09:27 | PM.TREADMILL ---
Cardiac Stress Test Report Referral & Results Date Patient Seen: 05/12/18 Time Patient Seen: 09:27 Indication: Chest pain, recent hospitalization Rest ECG: Unremarkable Procedure Note: After both written and verbal informed consent the patient had an IV started by the diagnostic imaging RN and then was hooked up to the treadmill monitoring system. The patient was placed on the treadmill at 1 mile an hour with no elevation and was then injected with the Giovanna scan material. The Cardiolite was then immediately administered. The patient spent an additional 2-3 minutes on the treadmill before being returned to the [facility] in the supine position. The patient had a normal response to all infused materials. Patient was hypertensive throughout No symptoms were experience Impression: Normal response. Hypertension. Perfusion imaging to be reported separately Please note: Actual ECG tracings can be found in the PACS system.
--- NOTE | 2018-05-14 07:35 | DI.NM.S_ITS ---
DATE OF SERVICE: 05/12/2018 PROCEDURE: Pharmacologic perfusion study. INDICATIONS: Shortness of breath with underlying diabetes mellitus, hypertension, and hyperlipidemia. RADIOPHARMACEUTICAL: 25.8 mCi of technetium-99 Myoview IV was injected at stress, and 25.0 mCi of technetium-99 Myoview IV was injected at rest. CARDIAC STRESS: The patient underwent a pharmacologic perfusion study under the supervision of an attending staff. The patient received IV Lexiscan as per protocol. She was hypertensive throughout the study. Initial blood pressure was 200/80. Peak blood pressure, according to the chart, 240/80. The patient tolerated the procedure. No chest pain reported. Baseline EKG revealed sinus rhythm with some nonspecific ST changes. During stress, a lot of artifact was seen; however, in recovery there were no new significant ischemic changes seen. No significant arrhythmias seen. RAW DATA: Significant breast shadow seen. GATED STUDY: Stress LV ejection fraction was 78% without any obvious wall motion abnormalities. Resting end-diastolic volume 76 mL. No transient ischemic dilatation. TID ratio is 0.72, which is within normal limits. Lung/heart ratio is 0.38, which is within normal limits. MYOCARDIAL PERFUSION: Stress supine, resting supine images revealed a small sized mildly decreased perfusion of the basal inferior wall, apex, as well as mid lateral wall, which got significantly improved during prone images. No convincing ischemia infarction during prone images. CONCLUSION: I would call this study likely a normal myocardial perfusion study with evidence of breast tissue as well as some diaphragmatic tissue attenuation artifact, which got resolved during prone images. Overall, LV function is preserved. No transient ischemic dilatation. This study appears to be a low- risk study; however, the patient was hypertensive. Correlate clinically. Vijaya Mckeon - OB/GYN DOCTOR/fn/ts doc#: [id number]/job#: [id number] dd: 05/13/2018 16:47:00 dt: 05/14/2018 07:16:00 DICTATING MD/COPIES TO: Tyshawn Turner MD COPIES MNE: [email or web address]
== END ==
PROVIDERS: PCP Internal Medicine; Visit Provider Internal Medicine
DX: R07.9 Chest pain, unspecified (principal); R06.09 Other forms of dyspnea; E11.9 Type 2 diabetes mellitus without complications; I10 Essential (primary) hypertension; E78.5 Hyperlipidemia, unspecified
CPT/HCPCS: 78452; 93016; 93017; 93018; A9502; J2785

== ENCOUNTER → 2018-07-15 15:35 | Outpatient (CLI) | payer MEDICARE, MEDICAID, SELFPAY ==
[2018-07-15 15:59] LABS: Appearance Urine UA SL CLOUDY; Bilirubin Urine UA NEGATIVE (NEGATIVE); Color Urine UA YELLOW; Glucose Urine UA NEGATIVE (Normal); Ketones Urine UA NEGATIVE (NEGATIVE); Leukocyte Esterase Urine UA NEGATIVE (NEGATIVE); Nitrite Urine UA NEGATIVE (Negative); Occult Blood Urine UA NEGATIVE (Negative); Protein Urine UA NEGATIVE (Negative); Urobilinogen Urine UA 0.2 E.U./dL (0.2)
[2018-07-15 16:04] LABS: Add Manual Diff / Slide Review NO; Basophils Percent Auto 0.6 % (0-2); Eosinophils Percent Auto 2.7 % (2-4); Hematocrit 36.9 % (36-46); Hemoglobin 12.2 g/dL (12.0-16.0); Lymphocytes Percent Auto 35.4 % (25-40); Mean Corpuscular Hemoglobin 29.3 PG (26-34); Mean Corpuscular Volume 88.8 fL (80-100); Monocytes Percent Auto 6.7 % (3-14); Neutrophils Absolute Auto 6200 /uL (1500-7000); Neutrophils Percent Auto 54.6 % (50-75); Platelet Count 335 X10^3/uL (150-400); Red Blood Cell Count 4.15 X10^6/uL (4.0-5.2); Red Cell Distribution Width 13.1 % (11.6-14.8); White Blood Cell Count 11.4 X10^3/uL (4.5-11.0)
[2018-07-15 16:14] LABS: Hemoglobin A1C% w Est Avg Glu 7.7 % (4.0-6.0)
[2018-07-15 16:16] LABS: Bacteria Urine Occasional (0-1); Culture Indicated Urine Cult Not Indicated; RBC Urine 0-1/HPF (0-5/HPF); Squamous Epithelial Cell Urine 1-5 /HPF; Transitional Epi Cells Urine 1-5/HPF (0-5/HPF); WBC Urine 0-1/HPF (0-5/HPF)
[2018-07-15 16:17] LABS: Blood Urea Nitrogen 22 mg/dL (7-17); Calcium 9.5 mg/dL (8.4-10.2); Carbon Dioxide 27 mmol/L (22-32); Chloride 102 mmol/L (98-107); Glucose 129 mg/dL (80-110); HEMOLYSIS < 15 (0-50); Potassium 4.9 mmol/L (3.4-5.1); Sodium 143 mmol/L (137-145)
== END ==
PROVIDERS: PCP Internal Medicine; Visit Provider Internal Medicine
DX: D64.9 Anemia, unspecified (principal); R30.0 Dysuria; E11.9 Type 2 diabetes mellitus without complications
CPT/HCPCS: 36415; 80048; 81001; 83036; 85025

== ENCOUNTER 2018-08-26 10:02 | Day surgery (SDC) | payer MEDICARE, MEDICAID, SELFPAY ==
[2018-08-22 13:04] VITALS: BMI 42.9
[2018-08-26] VITALS (9 sets, daily range): BP systolic 138–189; BP diastolic 56–83; PULSE 54–56; RESP 11–17; TEMP 35.9–36.6; O2SAT 92–99; BMI 43.0
--- NOTE | 2018-08-26 11:14 | PM.PREOP ---
Pre-operative Note Interval Note History & Physical reviewed/Exam performed by Physician: Yes Changes to H&P: No
--- NOTE | 2018-08-26 11:23 | PM.HP.1 ---
History of Present Illness Date Patient Seen: 08/26/18 Time Patient Seen: 11:23 Chief complaint: [id number] Narrative: Patient is a 73-year-old with pelvic pain, left greater than right, presents for diagnostic laparoscopy with possible lysis of adhesions Patient History Medical History Diabetes mellitus (Chronic 04/27/11) Mixed hyperlipidemia (Chronic 04/27/11) Mild intermittent asthma without complication (Chronic 04/27/11) Gastroesophageal reflux disease without esophagitis (Chronic 04/27/11) Essential hypertension (Chronic) Diverticulosis of large intestine without hemorrhage (Chronic 09/21/13) Low back pain without sciatica (Chronic 05/31/15) Type 2 diabetes mellitus with hyperglycemia (Chronic 09/24/15) Body mass index (BMI) of 40.0 to 44.9 in adult (Chronic 04/30/17) Morbid obesity (Chronic 04/30/17) Gastric polyp (Resolved) Chronic kidney disease (Acute) Vaginal atrophy (Acute) Surgical History History of appendectomy (Acute) History of bilateral salpingo-oophorectomy (BSO) (Inactive) History of total abdominal hysterectomy (Inactive) Family & Social History Social History: household members none lives independently Yes caregiver/support person No Tobacco & Substance use: Smoking Status Never smoker alcohol intake current alcohol intake frequency holiday/special occasion Substance Use Type does not use Meds Home Medications Medication Instructions Recorded Confirmed Type simvastatin [Zocor] 20 mg PO QDAY #90 tab 10/05/17 08/22/18 Rx pen needle, diabetic 31 gauge x #300 each 12/07/17 07/15/18 Rx 5/16 omeprazole 20 mg capsule,delayed 20 mg PO QDAY #90 cap 12/31/17 08/22/18 Rx release ranitidine 150 mg tablet 150 mg PO BID PRN #60 tab 01/19/18 08/22/18 Rx albuterol sulfate [Proventil HFA] 2 puff INH QID #17 gm 05/02/18 08/22/18 Rx insulin glargine [Lantus Solostar 30 unit SUBCUT PRN PRN 05/04/18 07/15/18 History U-100 Insulin] furosemide 20 mg PO DAILY #30 tab 05/05/18 08/22/18 Rx potassium chloride 10 meq PO DAILY #30 tab 05/05/18 08/22/18 Rx bimatoprost 0.01 % eye drops EYE-BOTH ml 05/09/18 07/15/18 History glimepiride [Amaryl] 4 mg PO AMCC #30 tab 05/13/18 08/22/18 Rx losartan 100 mg tablet 100 mg PO DAILY #30 tab 05/23/18 08/22/18 Rx estradiol 10 mcg vaginal tablet 10 mcg VAG 2XW #14 tab 06/07/18 07/15/18 Rx insulin aspart U-100 [Novolog 8 - 28 unit SQ SEE INSTRUCTIONS #1 06/20/18 08/26/18 Rx Flexpen U-100 Insulin] box hydrocodone 5 mg-acetaminophen 325 See Label Instructions PO Q4-6H 08/01/18 08/22/18 Rx mg tablet PRN #45 tab atenolol 25 mg PO DAILY 08/22/18 08/26/18 History Allergies Allergy/AdvReac Type Severity Reaction Status Date / Time Horse/Equine Containing Allergy Severe Difficulty Verified 08/26/18 10:45 Products Breathing iodine [IODINE] Allergy Severe hives Verified 08/26/18 10:45 ciprofloxacin [CIPROFLOXACIN] AdvReac Intermediate swelling Verified 08/26/18 10:45 tramadol [TRAMADOL] AdvReac Intermediate headache; Verified 08/26/18 10:45 swelling in feet rosuvastatin [From CRESTOR] AdvReac Mild Swelling Verified 08/26/18 10:45 in feet Exam Vital Signs (past 8 hours): - 08/26/18 11:05 Temperature 97.1 F L Pulse Rate 54 L Respiratory Rate 16 Blood Pressure 189/83 H Pulse Oximetry 96 Oxygen Delivery Method Room Air Narrative Exam Narrative: HEENT: No thyromegaly, no anterior cervical or supraclavicular lymphadenopathy. Lungs:Clear to auscultation bilaterally, no wheezes. Cardiovascular: Regular rate and rhythm, no murmurs, rubs, or gallops. Abdomen: Well-healed midline and Pfannenstiel scars. No hepatosplenomegaly. No masses palpable. External genitalia: Normal Vagina: Normal Cervix: Normal Bimanual exam: No masses. Tenderness in the left lower quadrant. Rectal: No masses. Assessment & Plan (1) Pelvic pain in female: Current visit: Yes Status: Acute Plan: Assessment/Plan Narrative: Assessment: 73-year-old with pelvic pain, left greater than right. Plan: Diagnostic laparoscopy with possible lysis of adhesions The risks, benefits, and alternatives to the procedure were explained to the patient. The risks including bleeding, infection, injury to the bowel, bladder, or ureters. She understands these risks and agrees to proceed. A full PAR-Q was held and consent form was signed.
--- NOTE | 2018-08-26 11:26 | P.HP_ITS ---
History of Present Illness Date Patient Seen: 08/26/18 Time Patient Seen: 11:23 Chief complaint: [id number] Narrative: Patient is a 73-year-old with pelvic pain, left greater than right, presents for diagnostic laparoscopy with possible lysis of adhesions Patient History Medical History Diabetes mellitus (Chronic 04/27/11) Mixed hyperlipidemia (Chronic 04/27/11) Mild intermittent asthma without complication (Chronic 04/27/11) Gastroesophageal reflux disease without esophagitis (Chronic 04/27/11) Essential hypertension (Chronic) Diverticulosis of large intestine without hemorrhage (Chronic 09/21/13) Low back pain without sciatica (Chronic 05/31/15) Type 2 diabetes mellitus with hyperglycemia (Chronic 09/24/15) Body mass index (BMI) of 40.0 to 44.9 in adult (Chronic 04/30/17) Morbid obesity (Chronic 04/30/17) Gastric polyp (Resolved) Chronic kidney disease (Acute) Vaginal atrophy (Acute) Surgical History History of appendectomy (Acute) History of bilateral salpingo-oophorectomy (BSO) (Inactive) History of total abdominal hysterectomy (Inactive) Family & Social History Social History: household members none lives independently Yes caregiver/support person No Tobacco & Substance use: Smoking Status Never smoker alcohol intake current alcohol intake frequency holiday/special occasion Substance Use Type does not use Meds Home Medications Medication Instructions Recorded Confirmed Type simvastatin [Zocor] 20 mg PO QDAY #90 tab 10/05/17 08/22/18 Rx pen needle, diabetic 31 gauge x #300 each 12/07/17 07/15/18 Rx 5/16 omeprazole 20 mg capsule,delayed 20 mg PO QDAY #90 cap 12/31/17 08/22/18 Rx release ranitidine 150 mg tablet 150 mg PO BID PRN #60 tab 01/19/18 08/22/18 Rx albuterol sulfate [Proventil HFA] 2 puff INH QID #17 gm 05/02/18 08/22/18 Rx insulin glargine [Lantus Solostar 30 unit SUBCUT PRN PRN 05/04/18 07/15/18 History U-100 Insulin] furosemide 20 mg PO DAILY #30 tab 05/05/18 08/22/18 Rx potassium chloride 10 meq PO DAILY #30 tab 05/05/18 08/22/18 Rx bimatoprost 0.01 % eye drops EYE-BOTH ml 05/09/18 07/15/18 History glimepiride [Amaryl] 4 mg PO AMCC #30 tab 05/13/18 08/22/18 Rx losartan 100 mg tablet 100 mg PO DAILY #30 tab 05/23/18 08/22/18 Rx estradiol 10 mcg vaginal tablet 10 mcg VAG 2XW #14 tab 06/07/18 07/15/18 Rx insulin aspart U-100 [Novolog 8 - 28 unit SQ SEE INSTRUCTIONS #1 06/20/18 Rx Flexpen U-100 Insulin] box hydrocodone 5 mg-acetaminophen 325 See Label Instructions PO Q4-6H 08/01/18 Rx mg tablet PRN #45 tab atenolol 25 mg PO DAILY 08/22/18 08/26/18 History Allergies Allergy/AdvReac Type Severity Reaction Status Date / Time Horse/Equine Containing Allergy Severe Difficulty Verified 08/26/18 10:45 Products Breathing iodine [IODINE] Allergy Severe hives Verified 08/26/18 10:45 ciprofloxacin [CIPROFLOXACIN] AdvReac Intermediate swelling Verified 08/26/18 10 :45 tramadol [TRAMADOL] AdvReac Intermediate headache; Verified 08/26/18 10:45 swelling in feet rosuvastatin [From CRESTOR] AdvReac Mild Swelling Verified 08/26/18 10:45 in feet Exam Vital Signs (past 8 hours): - 08/26/18 11:05 Temperature 97.1 F L Pulse Rate 54 L Respiratory Rate 16 Blood Pressure 189/83 H Pulse Oximetry 96 Oxygen Delivery Method Room Air Narrative Exam Narrative: HEENT: No thyromegaly, no anterior cervical or supraclavicular lymphadenopathy. Lungs:Clear to auscultation bilaterally, no wheezes. Cardiovascular: Regular rate and rhythm, no murmurs, rubs, or gallops. Abdomen: Well-healed midline and Pfannenstiel scars. No hepatosplenomegaly. No masses palpable. External genitalia: Normal Vagina: Normal Cervix: Normal Bimanual exam: No masses. Tenderness in the left lower quadrant. Rectal: No masses. Assessment & Plan (1) Pelvic pain in female: Current visit: Yes Status: Acute Plan: Assessment/Plan Narrative: Assessment: 73-year-old with pelvic pain, left greater than right. Plan: Diagnostic laparoscopy with possible lysis of adhesions The risks, benefits, and alternatives to the procedure were explained to the patient. The risks including bleeding, infection, injury to the bowel, bladder , or ureters. She understands these risks and agrees to proceed. A full PAR-Q was held and consent form was signed.
--- NOTE | 2018-08-26 11:39 | SUR.OPER ---
Lithotomy on padded OR bed, head on pillow, arms secured on padded arm boards at <90 degrees abduction. Legs secured in padded yellow fins stirrups.
[2018-08-26] MEDS: BUPIVACAINE 0.5% W/ EPI (PF) VIAL 30 ML INJ (12:09)
[2018-08-26] MEDS: fentaNYL 100 MCG/2 ML INJ 50 MCG IV (13:05)
[2018-08-26] MEDS: BENZOCAINE/MENTHOL 1 LOZ PKT 1 EACH PO (13:57)
--- NOTE | 2018-08-31 13:47 | PM.GYNOP.1 ---
Operative Date/Time/Diagnoses Date of procedure: 08/26/18 Time of procedure: 12:30 Pre-op diagnosis: Left lower quadrant pain Post-op diagnosis: same Procedure: Procedures Operation Date: 08/26/18 11:15 Actual Procedures Side Surgeon p Laparoscopy, Diagnostic w/lysis of adhesions Janeth Zurita MD Indications: Left lower quadrant pain Surgeon: Janeth Zurita Anesthesia Type: General Operative Notes Findings: Uterus is absent. Adhesions between the bladder and the bowel. Adhesions in the left lower quadrant including the colon. Closure Type: primary Specimen(s): none Estimated blood loss (mL): 10 Blood products transfused: none Procedure in detail: After informed consent was obtained, the patient was taken to the operating room where she was placed in the dorsal supine position. After adequate general endotracheal anesthesia was achieved, she was placed in the dorsal lithotomy position, and prepped and draped in the usual sterile fashion. A time-out was performed. A moistened sponge stick was placed into the vagina. Attention was then turned to the abdomen where 6 cc of 0.5% Marcaine with epinephrine were injected in the umbilical fold. A 5 mm incision was made. The long Veress needle was placed into the peritoneal cavity, and its placement confirmed by aspiration and drop test. The abdominal cavity was insufflated with 5.2 L of CO2. The Veress needle was removed, and a long 5 mm trocar was placed without difficulty. A 2nd 5 mm incision was made 4 cm lateral to the midline just below the umbilicus, and a 2nd long 5 mm trocar was placed under direct visualization. The probe was used to move the bowel and there was found to be adhesions between the bowel and bladder as well as significant adhesions in the left adnexa. A 3rd incision was made on the patient's right side 4 cm lateral to the midline. And a 3rd 5 long 5 mm trocar was placed under direct visualization. Using the Endo Oralia, the thin filmy adhesions were taken down between the colon and sidewall. The adhesions between the bladder and bowel were taken down using the PlasmaKinetic and Endo Oralia. Using an atraumatic grasper, the epiploic appendice was grasped and the adhesions between the colon and the left sidewall were taken down using the Endo Oralia. Care was taken to avoid the colon and the ureter. Hemostasis was achieved. The instruments were removed from the abdomen. The CO2 was allowed to escape. All of the incisions were closed with 4 0 undyed Vicryl in a subcuticular fashion. Steri-Strips, 2 x 2, and op site were placed. The moistened sponge stick was removed from the vagina. Sponge, lap, and instrument counts were correct x2. The patient tolerated the procedure well, and was taken to PACU in stable condition. Complications: none Post-operative Condition: stable Disposition: PACU Plan for aftercare: Home after recovery
== END 2018-08-26 14:15 | disposition home or self-care (01) ==
PROVIDERS: PCP Internal Medicine; Visit Provider Obstetrics & Gynecology
PROC: (CPT 49320; principal; 2018-08-26 11:15)
DX: K66.0 Peritoneal adhesions (postprocedural) (postinfection) (principal); E11.9 Type 2 diabetes mellitus without complications; E78.5 Hyperlipidemia, unspecified; J45.909 Unspecified asthma, uncomplicated; E66.01 Morbid (severe) obesity due to excess calories; Z68.41 Body mass index [BMI] 40.0-44.9, adult; N18.9 Chronic kidney disease, unspecified
CPT/HCPCS: 44180; J0330; J2250; J2405; J2704; J3010

== ENCOUNTER → 2019-01-09 15:37 | Outpatient (CLI) | payer MEDICARE, MEDICAID, SELFPAY ==
[2019-01-09 16:18] LABS: Hemoglobin A1C% w Est Avg Glu 6.6 % (4.0-6.0)
[2019-01-09 16:44] LABS: BUN Creatinine Ratio 16.4 (6-22); Blood Urea Nitrogen 18 mg/dL (7-17); Calcium 9.5 mg/dL (8.4-10.2); Carbon Dioxide 27 mmol/L (22-32); Chloride 101 mmol/L (98-107); Glucose 127 mg/dL (80-110); HEMOLYSIS < 15 (0-50); Sodium 139 mmol/L (137-145)
== END ==
PROVIDERS: PCP Internal Medicine; Visit Provider Internal Medicine
DX: E11.65 Type 2 diabetes mellitus with hyperglycemia (principal); I10 Essential (primary) hypertension
CPT/HCPCS: 36415; 80048; 83036

== ENCOUNTER → 2019-01-20 15:16 | Outpatient (CLI) | payer MEDICARE, MEDICAID, SELFPAY ==
--- NOTE | 2019-01-20 | DI.MG.S_ITS ---
BILATERAL DIGITAL SCREENING MAMMOGRAM 3D/2D WITH CAD: 01/20/2019 CLINICAL: Routine screening. Comparison is made to exams dated: 11/13/2017 mammogram, 06/12/2016 mammogram, 05/08/2014 mammogram, 04/20/2013 mammogram, 01/21/2012 mammogram, and 01/02/2011 mammogram - [facility]. There are scattered fibroglandular elements in both breasts. Current study was also evaluated with a Computer Aided Detection (CAD) system. There are benign calcifications in both breasts. No significant masses, calcifications, or other findings are seen in either breast. There has been no significant interval change. IMPRESSION: There is no mammographic evidence of malignancy. A 1 year screening mammogram is recommended. This exam was interpreted at Station ID: [id number]. NOTE: For mammograms, a report in lay terms will be sent to the patient. Approximately 15% of breast malignancies will not be visualized mammographically. In the management of a palpable breast mass, a negative mammogram must not discourage biopsy of a clinically suspicious lesion. Electronically Signed By: Ole loaiza/leeroy:01/20/2019 19:46:39 letter sent: Normal Exam ACR BI-RADS Category 2: Benign Finding(s) 3342F
== END ==
PROVIDERS: PCP Internal Medicine; Visit Provider Internal Medicine
DX: Z12.31 Encounter for screening mammogram for malignant neoplasm of breast (principal)
CPT/HCPCS: 77063; 77067

== ENCOUNTER 2019-04-06 10:45 | Day surgery (SDC) | payer MEDICARE, MEDICAID, SELFPAY ==
--- NOTE | 2019-04-06 | PATH_ITS ---
[facility] Accession Number: [id number] . 01 Material submitted: . gastrointestinal site - GASTRIC POLYPS . 01 Clinical history: . PERSONAL HISTORY OF OTHER DISEASES OF THE DIGESTIVE . 02 Diagnosis: Gastric Polyps, Biopsies: Fundic gland polyps. No evidence of Helicobacter organisms on H/E stain. Negative for intestinal metaplasia, dysplasia or malignancy. MRV/04/07/2019 . 02 Electronically signed: . Herrera Sparsk MD, PhD, Pathologist NPI- [id number] . 01 Gross description: . GASTRIC POLYPS: Received in formalin are multiple fragment(s) of rojo, soft tissue measuring 0.1 x 0.1 x 0.1 cm to 0.3 x 0.2 x 0.2 cm which is entirely submitted and submitted entirely in 1 cassette(s) /DMC /DMC . 02 Pathologist provided ICD-10: K31.7 . 02 CPT . 943113 Performed at: 01 [facility] [address] [facility], [place], [place] [id number] MD Bao Esteves MD Phone: [phone] Performed at: 02 [facility] [address] [place], [place] [id number] MD Cici Palafox MD Phone: [phone]
[2019-04-06 11:37] VITALS: BP 170/63; PULSE 47; RESP 16; TEMP 36.3; O2SAT 9; BMI 43.7
[2019-04-06] MEDS: SODIUM CHLORIDE 0.9% 1,000 ML 200 ML IV (11:54)
--- NOTE | 2019-04-06 12:32 | PM.HP.1 ---
History of Present Illness History of Present Illness Date Patient Seen: 04/06/19 Time Patient Seen: 12:32 Chief complaint: [id number] Narrative: Patient is a woman who had a large inflammatory polyp removed from her stomach. She is here in follow-up. Recommended that she have a repeat exam to evaluate this area due to the unusual nature of this finding. Patient History Medical History Body mass index (BMI) of 40.0 to 44.9 in adult (Chronic 04/30/17) Chronic kidney disease (Acute) Diabetes mellitus (Chronic 04/27/11) Diverticulosis of large intestine without hemorrhage (Chronic 09/21/13) Essential hypertension (Chronic) Gastric polyp (Resolved) Gastroesophageal reflux disease without esophagitis (Chronic 04/27/11) Low back pain without sciatica (Chronic 05/31/15) Mild intermittent asthma without complication (Chronic 04/27/11) Mixed hyperlipidemia (Chronic 04/27/11) Morbid obesity (Chronic 04/30/17) Type 2 diabetes mellitus with hyperglycemia (Chronic 09/24/15) Vaginal atrophy (Acute) Surgical History History of appendectomy (Acute) History of bilateral salpingo-oophorectomy (BSO) (Inactive) History of total abdominal hysterectomy (Inactive) Social History marital status: number of children: 2 household members: none lives independently: Yes caregiver/support person: No housing: apartment pets and animals: No education level: high school occupational status: disabled (Retired) 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[employer]: None leisure activities: games ([employer]) and reading ([employer] Smoking Status: Never smoker Tobacco: How many years used: 0 quit status: quit date established (Never Started) second hand exposure: Yes (Childhood) alcohol intake: current substance use type: does not use Family & Social History Social History: household members none lives independently Yes caregiver/support person No Tobacco & Substance use: Smoking Status Never smoker alcohol intake current alcohol intake frequency holiday/special occasion Substance Use Type does not use Meds Home Medications and Allergies Home Medications Medication Instructions Recorded Confirmed Type albuterol sulfate [Proventil HFA] 2 puff INH QID #17 gm 05/02/18 04/06/19 Rx bimatoprost 0.01 % eye drops 1 drp EYE-BOTH DAILY ml 05/09/18 04/06/19 History omeprazole 20 mg capsule,delayed 20 mg PO QDAY #90 cap 10/20/18 04/06/19 Rx release simvastatin [Zocor] 20 mg PO QDAY #90 tab 11/01/18 04/06/19 Rx ranitidine HCl 150 mg tablet 150 mg PO BID PRN #60 tab 11/28/18 04/06/19 Rx insulin glargine 100 unit/mL (3 30 unit SUBCUT PRN PRN #15 ml 12/15/18 04/06/19 Rx mL) subcutaneous pen furosemide 20 mg tablet 20 mg PO DAILY #90 tab 01/09/19 04/06/19 Rx lisinopril 20 mg tablet 20 mg PO DAILY #90 tab 01/09/19 04/06/19 Rx insulin aspart U-100 [Novolog 8 - 28 unit SQ SEE INSTRUCTIONS #1 01/31/19 04/06/19 Rx Flexpen U-100 Insulin] box atenolol 25 mg tablet 25 mg PO DAILY #90 tab 02/03/19 04/06/19 Rx pen needle, diabetic 31 gauge x #300 each 02/03/19 04/06/19 Rx 5/16 Ultra Fine Test Strips #100 each 03/24/19 03/27/19 Rx azithromycin 250 mg tablet See Rx Instructions PO .COMPLEX #6 03/27/19 04/06/19 Rx tab fluticasone propionate 220 2 inhalation INHALATION BID #12 03/27/19 04/06/19 Rx mcg/actuation HFA aerosol inhaler gram hydrocodone 5 mg-acetaminophen 325 See Rx Instructions PO Q4-6H PRN 04/04/19 04/06/19 Rx mg tablet #45 tab cholecalciferol (vitamin D3) 2,000 unit PO DAILY 04/06/19 04/06/19 History [Vitamin D3] Allergies Allergy/AdvReac Type Severity Reaction Status Date / Time Horse/Equine Containing Allergy Severe Difficulty Verified 03/27/19 18:14 Products Breathing iodine [IODINE] Allergy Severe hives Verified 03/27/19 18:14 ciprofloxacin [CIPROFLOXACIN] AdvReac Intermediate swelling Verified 04/06/19 11:29 of feet tramadol [TRAMADOL] AdvReac Intermediate headache; Verified 03/27/19 18:14 swelling in feet rosuvastatin [From CRESTOR] AdvReac Mild Swelling Verified 03/27/19 18:14 in feet Review of Systems Review of Systems Narrative: No active cardiac symptoms. No blood in her stool. No seizures or blackouts. Respiratory Comments: Recently treated for a respiratory tract infection which has resolved. Exam Vital Signs (past 8 hours): - 04/06/19 11:37 Temperature 97.4 F L Pulse Rate 47 L Respiratory Rate 16 Blood Pressure 170/63 H Pulse Oximetry 9 L Oxygen Delivery Method Room Air Narrative Exam Narrative: Pleasant cooperative patient no apparent distress. Morbidly obese. Lungs are clear to auscultation. No rales or rhonchi. Heart regular rate and rhythm no murmur gallop. Abdomen is soft nontender without mass. No obvious hernias. Patient is alert and oriented x3. Assessment & Plan Assessment & Plan narrative: EGD. I have discussed the procedure with her. Risks of bleeding perforation discussed. She appears to understand.
--- NOTE | 2019-04-06 12:35 | PM.PREOP ---
Pre-operative Note Interval Note History & Physical reviewed/Exam performed by Physician: Yes Changes to H&P: No ASA Class (for procedural sedation): III
--- NOTE | 2019-04-06 12:52 | PM.OP.ENDO ---
Operative Date/Time/Diagnoses Date of procedure: 04/06/19 Time of procedure: 12:52 Pre-op diagnosis: History of very large polyp in the stomach. Follow-up exam. Post-op diagnosis: same (Gastric fundic polyps. No large inflammatory polyp seen.) Procedure & Clinicians Study performed: EGD with cold biopsy Same procedure as scheduled: Yes Indications: History of very large inflammatory polyp. Rescoped to ensure no recurrence and complete removal. Surgeon: Daryn Yun Procedure Notes SCOAP/Timeout: Performed Procedure in detail: The patient had topical anesthetic applied to oropharynx. She was placed in left lateral decubitus position and underwent IV sedation directed by the surgeon consisting of fentanyl and Versed. A bite block was inserted and the scope was advanced through it into the esophagus. The esophagus was unremarkable. GE junction was noted at 38 cm from the incisors. The stomach insufflated well. There were multiple lesions seen in the body, antrum and at the incisura. These appeared to be gastric fundic polyps. The pyloric channel was patent. The duodenum was unremarkable to the 3rd part. The scope was brought back into the stomach and retroflexed. The proximal stomach normal except for polyps. Biopsies were taken of a random selection of the polyps. The scope was then straightened and brought out through the esophagus again. No lesions were seen. The scope was removed and the patient tolerated the procedure well. Scope withdrawal time: Not applicable Sedation minutes: 22 Findings: other findings (Gastric fundic polyps) Specimen(s): other (Gastric polyp biopsies) Complications: none Post-procedure Recommendations: Other recommendation (No follow-up EGD necessary.) Follow up: as needed Disposition: PACU
[2019-04-06] MEDS: LIDOCAINE 4% SOLN 50 ML 20 ML TOP (12:53)
[2019-04-06] MEDS: fentaNYL 250 MCG/5 ML INJ IV (12:53)
[2019-04-06] MEDS: MIDAZOLAM 5 MG/5 ML VIAL IV (12:54)
[2019-04-06 12:56] VITALS: BP 149/58; PULSE 45; RESP 14; TEMP 36.2; O2SAT 96
[2019-04-06 13:01] VITALS: BP 150/63; PULSE 44; RESP 11; O2SAT 98
[2019-04-06 13:06] VITALS: BP 139/68; PULSE 45; RESP 13; O2SAT 99
[2019-04-06 13:10] VITALS: BP 139/95; PULSE 45; RESP 20; TEMP 36; O2SAT 96
[2019-04-06 13:15] VITALS: BP 153/81; PULSE 50; RESP 15; TEMP 36.3; O2SAT 97
== END 2019-04-06 13:28 | disposition home or self-care (01) ==
PROVIDERS: PCP Internal Medicine; Visit Provider Specialist
PROC: 0DJ08ZZ Inspection of Upper Intestinal Tract, Via Natural or Artificial Opening Endoscopic (ICD-10-PCS; CPT 43235; principal; 2019-04-06 11:45)
DX: K31.7 Polyp of stomach and duodenum (principal); E66.01 Morbid (severe) obesity due to excess calories; Z68.41 Body mass index [BMI] 40.0-44.9, adult; J44.9 Chronic obstructive pulmonary disease, unspecified; E78.5 Hyperlipidemia, unspecified; E11.65 Type 2 diabetes mellitus with hyperglycemia; K21.9 Gastro-esophageal reflux disease without esophagitis; N18.9 Chronic kidney disease, unspecified; I10 Essential (primary) hypertension
CPT/HCPCS: 43239; 99152; J2250; J3010

== ENCOUNTER → 2019-05-09 16:05 | Outpatient (CLI) | payer MEDICARE, MEDICAID, SELFPAY ==
[2019-05-09 16:39] LABS: BUN Creatinine Ratio 18.9 (6-22); Blood Urea Nitrogen 17 mg/dL (7-17); Calcium 9.8 mg/dL (8.4-10.2); Carbon Dioxide 25 mmol/L (22-32); Chloride 106 mmol/L (98-107); Estimated Glomerular Filt Rate > 60.0 mL/min (>60); Glucose 114 mg/dL (80-110); HEMOLYSIS < 15 (0-50); Potassium 4.4 mmol/L (3.4-5.1); Sodium 140 mmol/L (137-145)
== END ==
PROVIDERS: PCP Internal Medicine; Visit Provider Internal Medicine
DX: I10 Essential (primary) hypertension (principal)
CPT/HCPCS: 36415; 80048

== ENCOUNTER → 2019-06-16 14:36 | Outpatient (CLI) | payer MEDICARE, MEDICAID, SELFPAY ==
[2019-06-16 14:48] LABS: Bacteria Urine None Seen; RBC Urine None Seen (0-5/HPF)
[2019-06-16 15:37] LABS: Hemoglobin A1C% w Est Avg Glu 7.1 % (4.0-6.0)
[2019-06-16 15:44] LABS: Appearance Urine UA CLEAR; Bilirubin Urine UA NEGATIVE (NEGATIVE); Color Urine UA YELLOW; Glucose Urine UA NEGATIVE (Negative); Ketones Urine UA NEGATIVE (NEGATIVE); Leukocyte Esterase Urine UA 1+ (NEGATIVE); Nitrite Urine UA NEGATIVE (Negative); Occult Blood Urine UA NEGATIVE (Negative); Protein Urine UA NEGATIVE (Negative); Urobilinogen Urine UA 0.2 E.U./dL (0.2)
[2019-06-16 15:47] LABS: BUN Creatinine Ratio 16.7 (6-22); Blood Urea Nitrogen 20 mg/dL (7-17); Calcium 9.7 mg/dL (8.4-10.2); Carbon Dioxide 30 mmol/L (22-32); Chloride 100 mmol/L (98-107); Estimated Glomerular Filt Rate 44.2 mL/min (>60); Glucose 110 mg/dL (80-110); HEMOLYSIS < 15 (0-50); Potassium 4.6 mmol/L (3.4-5.1); Sodium 140 mmol/L (137-145)
[2019-06-16 16:29] LABS: Culture Indicated Urine Specimen Cultured; WBC Urine 1-5/HPF (0-5/HPF)
== END ==
PROVIDERS: PCP Internal Medicine; Visit Provider Internal Medicine
DX: E11.9 Type 2 diabetes mellitus without complications (principal); I10 Essential (primary) hypertension; R30.0 Dysuria
CPT/HCPCS: 36415; 80048; 81001; 83036; 87086

== ENCOUNTER → 2020-01-16 15:53 | Outpatient (CLI) | payer MEDICARE, MEDICAID, SELFPAY ==
[2020-01-16 16:40] LABS: Appearance Urine UA CLEAR; Bilirubin Urine UA NEGATIVE (NEGATIVE); Color Urine UA YELLOW; Glucose Urine UA NEGATIVE (Negative); Ketones Urine UA NEGATIVE (NEGATIVE); Leukocyte Esterase Urine UA 1+ (NEGATIVE); Nitrite Urine UA NEGATIVE (Negative); Occult Blood Urine UA NEGATIVE (Negative); Protein Urine UA NEGATIVE (Negative); Specific Gravity Urine UA <=1.005 (1.000-1.035); Urobilinogen Urine UA 0.2 E.U./dL (0.2)
[2020-01-16 17:10] LABS: pH Urine UA 5.5 (4.5-8.0)
[2020-01-16 17:12] LABS: RBC Urine 0-1/HPF (0-5/HPF); Squamous Epithelial Cell Urine 1-5 /HPF (0-5/HPF); Transitional Epi Cells Urine 1-5/HPF (0-5/HPF); WBC Urine 1-5/HPF (0-5/HPF)
[2020-01-16 17:13] LABS: Bacteria Urine Occasional (0-1); Culture Indicated Urine Specimen Cultured
[2020-01-16 17:20] LABS: Alanine Aminotransferase 14 IU/L (<35); Albumin 4.2 g/dL (3.5-5.0); Albumin Globulin Ratio 1.3 (1.0-2.8); Alkaline Phosphatase 78 U/L (38-126); Aspartate Aminotransferase 19 IU/L (14-36); BUN Creatinine Ratio 22.6 (6-22); Bilirubin Total 0.4 mg/dL (0.2-1.3); Blood Urea Nitrogen 21 mg/dL (7-17); Calcium 9.9 mg/dL (8.4-10.2); Carbon Dioxide 24 mmol/L (22-32); Chloride 106 mmol/L (98-107); Cholesterol 202 mg/dL (140-199); Estimated Glomerular Filt Rate 59.3 mL/min (>60); Globulin 3.2 g/dL (1.7-4.1); Glucose 87 mg/dL (80-110); HDL Cholesterol 54 mg/dL (40-60); HEMOLYSIS < 15 (0-50); LDL Cholesterol Calculated 112 mg/dL (<100); Potassium 4.8 mmol/L (3.4-5.1); Sodium 140 mmol/L (137-145); Total Protein 7.4 g/dL (6.3-8.2); Triglycerides 182 mg/dL (35-150)
[2020-01-16 17:21] LABS: Hemoglobin A1C% w Est Avg Glu 7.3 % (4.0-6.0)
== END ==
PROVIDERS: PCP Internal Medicine; Referring Provider Internal Medicine; Visit Provider Internal Medicine
DX: E11.65 Type 2 diabetes mellitus with hyperglycemia (principal); E78.2 Mixed hyperlipidemia; I10 Essential (primary) hypertension; R39.15 Urgency of urination
CPT/HCPCS: 36415; 80053; 80061; 81003; 81015; 83036; 87086

== ENCOUNTER → 2020-05-16 16:50 | Outpatient (CLI) | payer MEDICARE, MEDICAID, SELFPAY ==
[2020-05-16 17:49] LABS: Hemoglobin A1C% w Est Avg Glu 7.9 % (4.0-6.0)
[2020-05-16 17:55] LABS: Alanine Aminotransferase 14 IU/L (<35); Albumin 4.1 g/dL (3.5-5.0); Albumin Globulin Ratio 1.2 (1.0-2.8); Alkaline Phosphatase 83 U/L (38-126); Aspartate Aminotransferase 19 IU/L (14-36); BUN Creatinine Ratio 27.3 (6-22); Bilirubin Total 0.7 mg/dL (0.2-1.3); Blood Urea Nitrogen 30 mg/dL (7-17); Calcium 9.4 mg/dL (8.4-10.2); Carbon Dioxide 29 mmol/L (22-32); Chloride 103 mmol/L (98-107); Estimated Glomerular Filt Rate 48.7 mL/min (>60); Globulin 3.3 g/dL (1.7-4.1); Glucose 132 mg/dL (80-110); HEMOLYSIS < 15 (0-50); Potassium 4.9 mmol/L (3.4-5.1); Sodium 139 mmol/L (137-145); Total Protein 7.4 g/dL (6.3-8.2)
== END ==
PROVIDERS: PCP Internal Medicine; Referring Provider Internal Medicine; Visit Provider Internal Medicine
DX: E13.8 Other specified diabetes mellitus with unspecified complications (principal); E78.2 Mixed hyperlipidemia; Z79.4 Long term (current) use of insulin
CPT/HCPCS: 36415; 80053; 83036

== ENCOUNTER → 2020-06-28 16:51 | Outpatient (CLI) | payer MEDICARE, MEDICAID, SELFPAY ==
--- NOTE | 2020-06-28 | DI.MG.S_ITS ---
BILATERAL DIGITAL SCREENING MAMMOGRAM 3D/2D WITH CAD: 06/28/2020 CLINICAL: Routine screening. Comparison is made to exams dated: 01/20/2019 mammogram, 11/13/2017 mammogram, and 06/12/2016 mammogram - [facility]. There are scattered fibroglandular elements in both breasts. Current study was also evaluated with a Computer Aided Detection (CAD) system. There are benign calcifications in both breasts. No significant masses, calcifications, or other findings are seen in either breast. There has been no significant interval change. IMPRESSION: BENIGN There is no mammographic evidence of malignancy. A 1 year screening mammogram is recommended. This exam was interpreted at Station ID: [id number]. NOTE: For mammograms, a report in lay terms will be sent to the patient. Approximately 15% of breast malignancies will not be visualized mammographically. In the management of a palpable breast mass, a negative mammogram must not discourage biopsy of a clinically suspicious lesion. Electronically Signed By: Bao stoddard/leeroy:07/03/2020 10:03:17 letter sent: Normal Exam ACR BI-RADS Category 2: Benign Finding(s) 3342F
== END ==
PROVIDERS: PCP Internal Medicine; Referring Provider Internal Medicine; Visit Provider Internal Medicine
DX: Z12.31 Encounter for screening mammogram for malignant neoplasm of breast (principal)
CPT/HCPCS: 77063; 77067

== ENCOUNTER → 2020-10-14 15:32 | Outpatient (CLI) | payer MEDICARE, MEDICAID, SELFPAY ==
[2020-10-14] MEDS: COVID-19 VACC, Ad26(JANSSEN)/PF 0.5 ML IM (15:46)
== END ==
PROVIDERS: PCP Internal Medicine; Visit Provider Internal Medicine
DX: Z23 Encounter for immunization (principal)
CPT/HCPCS: 0031A; 91303

== ENCOUNTER → 2021-01-17 16:44 | Outpatient (CLI) | payer MEDICARE, MEDICAID, SELFPAY ==
[2021-01-17 19:32] LABS: Add Manual Diff / Slide Review NO; Basophils Absolute Auto 100 /uL (0-100); Basophils Percent Auto 0.5 % (0-2); Eosinophils Absolute Auto 200 /uL (0-450); Eosinophils Percent Auto 2.1 % (2-4); Hematocrit 37.3 % (36-46); Hemoglobin 12.2 g/dL (12.0-16.0); Lymphocytes Absolute Auto 3600 /uL (1100-4500); Lymphocytes Percent Auto 32.6 % (25-40); Mean Corpuscular HGB Conc 32.8 % (30-36); Mean Corpuscular Volume 88.5 fL (80-100); Monocytes Absolute Auto 600 /uL (0-900); Monocytes Percent Auto 5.1 % (3-14); Neutrophils Absolute Auto 6600 /uL (1500-7000); Neutrophils Percent Auto 59.7 % (50-75); Platelet Count 284 X10^3/uL (150-400); Red Blood Cell Count 4.22 X10^6/uL (4.0-5.2); Red Cell Distribution Width 14.1 % (11.6-14.8)
[2021-01-17 19:47] LABS: Hemoglobin A1C% w Est Avg Glu 8.3 % (4.0-6.0)
[2021-01-17 19:48] LABS: Alanine Aminotransferase 19 IU/L (<35); Albumin 4.4 g/dL (3.5-5.0); Albumin Globulin Ratio 1.2 (1.0-2.8); Alkaline Phosphatase 75 U/L (38-126); Aspartate Aminotransferase 25 IU/L (14-36); Bilirubin Total 0.6 mg/dL (0.2-1.3); Blood Urea Nitrogen 28 mg/dL (7-17); Carbon Dioxide 25 mmol/L (22-32); Chloride 105 mmol/L (98-107); Estimated Glomerular Filt Rate 36.9 mL/min (>60); Globulin 3.6 g/dL (1.7-4.1); Glucose 144 mg/dL (80-110); HEMOLYSIS < 15 (0-50); Potassium 4.5 mmol/L (3.4-5.1); Sodium 139 mmol/L (137-145)
== END ==
PROVIDERS: PCP Internal Medicine; Referring Provider Internal Medicine; Visit Provider Internal Medicine
DX: E13.8 Other specified diabetes mellitus with unspecified complications (principal); I10 Essential (primary) hypertension; E66.01 Morbid (severe) obesity due to excess calories; E78.2 Mixed hyperlipidemia; Z79.4 Long term (current) use of insulin; D64.9 Anemia, unspecified; K31.7 Polyp of stomach and duodenum
CPT/HCPCS: 36415; 80053; 83036; 85025

== ENCOUNTER → 2021-05-29 16:09 | Outpatient (CLI) | payer MEDICARE, MEDICAID, SELFPAY ==
[2021-05-29 17:41] LABS: Hemoglobin A1C% w Est Avg Glu 7.4 % (4.0-6.0)
[2021-05-29 17:49] LABS: Alanine Aminotransferase 14 IU/L (<35); Albumin 3.9 g/dL (3.5-5.0); Albumin Globulin Ratio 1.3 (1.0-2.8); Alkaline Phosphatase 61 U/L (38-126); Aspartate Aminotransferase 19 IU/L (14-36); BUN Creatinine Ratio 13.3 (6-22); Bilirubin Total 0.4 mg/dL (0.2-1.3); Blood Urea Nitrogen 12 mg/dL (7-17); Calcium 8.7 mg/dL (8.4-10.2); Carbon Dioxide 29 mmol/L (22-32); Chloride 102 mmol/L (98-107); Estimated Glomerular Filt Rate > 60.0 mL/min (>60); Globulin 2.9 g/dL (1.7-4.1); Glucose 145 mg/dL (80-110); HEMOLYSIS < 15 (0-50); Potassium 4.6 mmol/L (3.4-5.1); Sodium 139 mmol/L (137-145); Total Protein 6.8 g/dL (6.3-8.2)
== END ==
PROVIDERS: PCP Internal Medicine; Referring Provider Internal Medicine; Visit Provider Internal Medicine
DX: E11.65 Type 2 diabetes mellitus with hyperglycemia (principal); I10 Essential (primary) hypertension
CPT/HCPCS: 36415; 80053; 83036

== ENCOUNTER 2021-06-18 21:37 | Emergency (ER) | payer MEDICARE, MEDICAID, SELFPAY ==
[2021-06-02 16:21] VITALS: BMI 42.3
[2021-06-18 21:51] VITALS: BP 199/81; PULSE 62; RESP 18; TEMP 37.3; O2SAT 96; BMI 43.9
--- NOTE | 2021-06-18 22:07 | ED.EXTPRO ---
HPI - Extremity Problem General Chief complaint: Extremity Problem,Nontraumatic Stated complaint: lt foot pain Time Seen by Provider: 06/18/21 21:45 Source: patient Mode of arrival: Ambulatory Limitations: no limitations History of Present Illness HPI Narrative: 76-year-old female nonsmoker with history of chronic kidney disease, diabetes, blood pressure presents with chief complaint of pain, redness and swelling of her left foot over the past few days. This is in the absence of any injury or history of the same. She denies any fever or chills. She has no nausea or vomiting. She denies any history of gout. She does have an established relationship with Podiatry and has known bone spurs and a bunion. She denies any new footwear. She has had no change in medications or diet. She has increased pain with range of motion or walking and improvement with rest Related Data Home Medications Medication Instructions Recorded Confirmed bimatoprost 0.01 % eye drops 1 drp EYE-BOTH DAILY ml 05/09/18 06/13/21 (Lumigan) cholecalciferol (vitamin D3) 50 2,000 unit PO DAILY 04/06/19 06/13/21 mcg (2,000 unit) tablet (Vitamin D3) Previous Rx's Medication Instructions Recorded insulin glargine 100 unit/mL (3 30 unit (0.3 mL) SUBCUT BID #54 ml 01/22/20 mL) subcutaneous pen (Basaglar KwikPen U-100 Insulin) hydrocortisone 2.5 % topical cream 1 applictn KS BID-QID PRN #30 gram 02/21/20 with perineal applicator (Proctosol HC) lancets #300 ea 08/27/20 lancets (OneTouch UltraSoft #300 ea 08/27/20 Lancets) famotidine 40 mg tablet 40 mg PO DAILY #90 tab 10/14/20 docusate sodium 100 mg capsule 100 mg PO BID #180 cap 11/18/20 simvastatin 20 mg tablet (Zocor) 20 mg PO QDAY #90 tab 12/31/20 insulin glargine 100 unit/mL (3 45 unit (0.45 mL) SUBCUT BID #135 01/17/21 mL) subcutaneous pen (Lantus ml Solostar U-100 Insulin) omeprazole 20 mg capsule,delayed 20 mg PO QDAY #90 cap 02/06/21 release albuterol sulfate 90 mcg/actuation 2 puff INHALATION Q4H #36 gram 03/25/21 aerosol inhaler (Proventil HFA) ibuprofen 600 mg tablet 600 mg PO Q6-8H PRN #90 tab 03/25/21 furosemide 20 mg tablet 20 mg PO DAILY #90 tab 04/15/21 insulin aspart U-100 100 unit/mL See Rx Instructions .ROUTE 04/24/21 (3 mL) subcutaneous pen (Novolog .COMPLEX #15 milliliter Flexpen U-100 Insulin aspart) clotrimazole-betamethasone 1 See Rx Instructions .ROUTE 04/25/21 %-0.05 % topical cream .COMPLEX #45 gram Onetouch Ultra Blue Test Strips #250 each 06/05/21 atenolol 25 mg tablet 25 mg PO DAILY #90 tab 06/05/21 pen needle, diabetic 31 gauge x #300 each 06/11/21 5/16 (BD Ultra-Fine Short Pen Needle) amlodipine 2.5 mg tablet 2.5 mg PO BID #90 tab 06/13/21 lisinopril 20 mg tablet 40 mg PO DAILY #90 tab 06/13/21 hydrocodone 5 mg-acetaminophen 325 1 - 2 tab PO Q4-6H PRN #45 tab 06/16/21 mg tablet indomethacin 50 mg capsule 50 mg PO TID #30 cap 06/18/21 Allergies Allergy/AdvReac Type Severity Reaction Status Date / Time Horse/Equine Containing Allergy Severe Difficulty Verified 06/18/21 21:59 Products Breathing iodine [IODINE] Allergy Severe hives Verified 06/18/21 21:59 ciprofloxacin [CIPROFLOXACIN] AdvReac Intermediate swelling Verified 06/18/21 21:59 of feet cyclobenzaprine AdvReac Intermediate hyperactivi Verified 06/18/21 21:59 ty tramadol [TRAMADOL] AdvReac Intermediate headache; Verified 06/18/21 21:59 swelling in feet rosuvastatin [From CRESTOR] AdvReac Mild Swelling Verified 06/18/21 21:59 in feet Review of Systems Review of Systems Narrative: GENERAL: Denies chills, fatigue, malaise, fever, sweats. HEENT: Denies sinus pain, ear pain, sore throat, difficulty swallowing, dizziness. RESPIRATORY: Denies dyspnea, cough, wheezing, hemoptysis, sputum. CARDIOVASCULAR: Denies chest pain, palpitations, orthopnea, edema, GASTROINTESTINAL: Denies nausea, vomiting, abdominal pain, diarrhea, constipation, melena. : Denies dysuria, frequency, incontinence, hematuria, urinary retention. MUSCULOSKELETAL: See HPI SKIN: See HPI NEUROLOGIC: Denies weakness, headache, numbness, change in speech, confusion, seizures, incoordination. PSYCHIATRIC: No concerning psychosocial issues. 12 point review of systems is negative except for those stated above Patient History Medical History Body mass index (BMI) of 40.0 to 44.9 in adult (04/30/17) Chronic kidney disease Chronic renal failure, stage 3a Diabetes mellitus (04/27/11) Diverticulosis of large intestine without hemorrhage (09/21/13) Essential hypertension Gastric polyp Gastroesophageal reflux disease without esophagitis (04/27/11) Low back pain without sciatica (05/31/15) Mild intermittent asthma without complication (04/27/11) Mixed hyperlipidemia (04/27/11) Morbid obesity (04/30/17) Pain in pelvis Pelvic adhesions PVCs (premature ventricular contractions) Type 2 diabetes mellitus with hyperglycemia (09/24/15) Vaginal atrophy Surgical History History of appendectomy History of bilateral salpingo-oophorectomy (BSO) History of total abdominal hysterectomy Social History marital status: number of children: 2 household members: none lives independently: Yes caregiver/support person: No housing: apartment pets and animals: No education level: high school occupational status: disabled 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 Well-developed patient, in mild distress. HEAD: Atraumatic. Normocephalic. EYES: Pupils equal round and reactive. Extraocular motions intact. No scleral icterus. No injection or drainage. ENT: Nose without bleeding, purulent drainage. Throat without erythema, tonsillar hypertrophy or exudate. Airway patent. NECK: Trachea midline. Non tender CARDIOVASCULAR: Regular rate and rhythm without murmurs, gallops, or rubs. RESPIRATORY: Clear to auscultation. Breath sounds equal bilaterally. No wheezes, rales, or rhonchi. GASTROINTESTINAL: Abdomen soft, non-tender, nondistended. EXTREMITIES: No edema or joint tenderness. BACK: Nontender without deformity or crepitance. No flank tenderness. NEURO: AOx3. SKIN: Erythema and warmth with minimal swelling surrounding her left 1st metatarsal joint. There is no obvious break in the skin, the redness is rather well demarcated. There is no fluctuance, induration or drainage Initial Vital Signs Initial Vital Signs: Vital Signs Temperature 99.1 F 06/18/21 21:51 Pulse Rate 62 06/18/21 21:51 Respiratory Rate 18 06/18/21 21:51 Blood Pressure 199/81 H 06/18/21 21:51 Pulse Oximetry 96 06/18/21 21:51 Course Orders Ordered: ED Orders 06/18/21 22:15 XR foot LT min 3V Stat 06/18/21 22:53 CBC Auto Diff [Complete Blood Count AUTO DIFF] Stat CRP [C-Reactive Protein Quant] Stat ESR [Erythrocyte Sedimentation Rate] Stat Uric Acid Stat Discontinued Medications Colchicine (Colchicine 0.6 Mg Tablet) 1.2 mg PO NOW ONE Stop: 06/18/21 23:31 Last Admin: 06/18/21 23:42 Dose: 1.2 mg Documented by: HALEY Vital Signs Vital signs: Vital Signs - 8 hr 06/18/21 21:51 06/18/21 23:57 Temperature 99.1 F Pulse Rate 62 55 L Respiratory Rate 18 16 Blood Pressure 199/81 H 196/91 H Pulse Oximetry 96 97 MDM - Extremity (Nontraumatic) Lab Data Result diagrams: 06/18/21 22:53 Labs: Lab Results 06/18/21 06/18/21 Range/Units 22:53 22:53 WBC 13.5 H (4.5-11.0) X10^3/uL RBC 3.88 L (4.0-5.2) X10^6/uL Hgb 11.2 L (12.0-16.0) g/dL Hct 33.8 L (36-46) % MCV 86.9 (80-100) fL MCH 28.7 (26-34) PG MCHC 33.1 (30-36) % RDW 13.1 (11.6-14.8) % Plt Count 310 (150-400) X10^3/uL Neut % (Auto) 73.4 (50-75) % Lymph % (Auto) 21.4 L (25-40) % Craig % (Auto) 3.6 (3-14) % Eos % (Auto) 1.0 L (2-4) % Baso % (Auto) 0.6 (0-2) % Neut # (Auto) 9900 H (7362-8074) /uL Lymph # (Auto) 2900 (3793-3313) /uL Craig # (Auto) 500 (0-900) /uL Eos # (Auto) 100 (0-450) /uL Baso # (Auto) 100 (0-100) /uL ESR 60 H (0-20) MM/HR Uric Acid 8.0 H (2.5-6.2) mg/dL C-Reactive Protein 0.9 (<1.0) mg/dL Imaging Data Extremity x-ray #1: Radiologist's Impression: [place] [address] XRay Report Signed Patient: Vijaya Mckeon MR#: [id number] : 1945 Acct:[id number] Age/Sex: 76 / F Date of Service: 06/18/21 Loc: ED Accession Number: [id number] ?? Procedure: XR foot LT min 3V Order PROCEDURE:? XR FOOT LT MIN 3V ? INDICATIONS:? pain, redness 1st MTP, no known injury ? TECHNIQUE:? 3 views of the foot were acquired.? ? COMPARISON:? [facility], , XR FOOT 3 VIEWS WEIGHT BEARING BILATERAL, 01/15/2021, 15:25. ? FINDINGS:? ? Bones:? No acute fractures or dislocations.? No suspicious bony lesions.? Mild left hallux valgus.? No focal osseous erosion is seen.? Small plantar calcaneal spur. ? Soft tissues:? Soft tissue edema is seen in the forefoot and medial to the 1st metatarsophalangeal joint.? No suspicious soft tissue calcifications. ? ? IMPRESSION:? Mild nonspecific soft tissue edema overlying the 1st metatarsophalangeal joint with mild hallux valgus.? No osseous erosion or soft tissue calcification is seen. ? ? Dictated by: Franck Perdomo M.D. on 06/18/2021 at 22:27 ? ? Approved by: Franck Perdomo M.D. on 06/18/2021 at 22:29 ? MDM Narrative Medical decision making narrative: Patient with pain, redness and minimal swelling at her left 1st metatarsal joint. She denies any specific injury though she does have a history of a bunion. She has had no systemic complaints and has no history of gout and denies any dietary change. X-rays reassuring. Cellulitis is unlikely given history and physical. This could be as simple as irritation and inflammation of her skin relating to her bunion, however this would not explain the elevated uric acid. 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 Return precautions discussed and questions have been answered to her apparent satisfaction Discharge Plan Departure Patient Disposition: Home Clinical Impression: Gout Instructions: Gout Activity Restrictions/Additional Instructions: *You have been diagnosed with [gout attack] *What to do: *Please continue to take your regular medications as directed. [x ] New medication prescriptions sent to your pharmacy: [ ] [ ] New medication written as a paper prescription [ ] No new medications given *Please follow up with your primary care provider in 2-3 days, call for an appointment. Let them know you were seen in the Emergency Department and that we ask that you be seen in follow up. We will electronically transmit a record of today's note if your PCP is in our system *If you do not have a primary care provider please contact the [facility] Resource line at [phone]. They will ask some questions about your medical history and help get you set up with a doctor in the community. *Return to Emergency Department if you should have any new, worsening or concerning symptoms, such as [fever greater than 101 F, shaking chills, worsening pain, persistent vomiting or other bothersome symptoms] Prescriptions: New indomethacin 50 mg capsule 50 mg PO TID Qty: 30 0RF Rx Instructions: administer with food or milk No Action Basaglar KwikPen U-100 Insulin 100 unit/mL (3 mL) insulin pen 30 unit SUBCUT BID Qty: 54 3RF hydrocortisone [Proctosol HC] 2.5 % cream with perineal applicator 1 applictn KS BID-QID PRN (Reason: hemorrhoids) Qty: 30 1RF (DME) lancets See Rx Instructions .Route .MEDSUPPLY Qty: 300 3RF Rx Instructions: use to check blood sugar 5 times a day (DME) lancets [OneTouch UltraSoft Lancets] Misc See Rx Instructions .ROUTE .MEDSUPPLY Qty: 300 3RF Rx Instructions: Use to check blood sugars 5x a day or as directed by physician. famotidine 40 mg tablet 40 mg PO DAILY Qty: 90 3RF docusate sodium 100 mg capsule 100 mg PO BID Qty: 180 1RF simvastatin [Zocor] 20 mg tablet 20 mg PO QDAY Qty: 90 1RF omeprazole 20 mg capsule,delayed release(DR/EC) 20 mg PO QDAY Qty: 90 3RF Label Comments: usally takes every other day ibuprofen 600 mg tablet 600 mg PO Q6-8H PRN (Reason: fever or pain) Qty: 90 0RF albuterol sulfate [Proventil HFA] 90 mcg/actuation HFA aerosol inhaler 2 puff inhalation Q4H Qty: 36 3RF furosemide 20 mg tablet 20 mg PO DAILY Qty: 90 1RF Novolog Flexpen U-100 Insulin 100 unit/mL (3 mL) insulin pen See Rx Instructions .ROUTE .COMPLEX Qty: 15 8RF Dose Instruction: Inject 8-28 units subcutaneously before meals BASED ON CARB INTAKE four times a day. Rx Instructions: Inject 8-28 units subcutaneously before meals BASED ON CARB INTAKE four times a day. clotrimazole-betamethasone 1-0.05 % cream See Rx Instructions .ROUTE .COMPLEX Qty: 45 3RF Dose Instruction: apply to affected area three times a day Rx Instructions: apply to affected area three times a day atenolol 25 mg tablet 25 mg PO DAILY Qty: 90 2RF (DME) Onetouch Ultra Blue Test Strips Qty: 250 6RF Dose Instruction: As directed Rx Instructions: Use to test blood sugars 5x a day or as directed by PCP. (DME) pen needle, diabetic [BD Ultra-Fine Short Pen Needle] 31 gauge x 5/16 needle See Dose Instructions .ROUTE .MEDSUPPLY Qty: 300 11RF Dose Instruction: As directed Rx Instructions: use 5 times daily as directed hydrocodone-acetaminophen 5-325 mg tablet 1 - 2 tab PO Q4-6H PRN (Reason: pain) Qty: 45 0RF bimatoprost [Lumigan] 0.01 % drops 1 drp EYE-BOTH DAILY 0RF Lantus Solostar U-100 Insulin 100 unit/mL (3 mL) insulin pen 45 unit SUBCUT BID Qty: 135 3RF lisinopril 20 mg tablet 40 mg PO DAILY Qty: 90 2RF amlodipine 2.5 mg tablet 2.5 mg PO BID Qty: 90 3RF cholecalciferol (vitamin D3) [Vitamin D3] 2,000 unit Tablet 2,000 unit PO DAILY 0RF Referrals: Carlos Arrington MD [Primary Care Provider] -
--- NOTE | 2021-06-18 22:15 | DI.RAD.S_ITS ---
PROCEDURE: XR FOOT LT MIN 3V INDICATIONS: pain, redness 1st MTP, no known injury TECHNIQUE: 3 views of the foot were acquired. COMPARISON: [facility], CR, XR FOOT 3 VIEWS WEIGHT BEARING BILATERAL, 01/15/2021, 15:25. FINDINGS: Bones: No acute fractures or dislocations. No suspicious bony lesions. Mild left hallux valgus. No focal osseous erosion is seen. Small plantar calcaneal spur. Soft tissues: Soft tissue edema is seen in the forefoot and medial to the 1st metatarsophalangeal joint. No suspicious soft tissue calcifications. IMPRESSION: Mild nonspecific soft tissue edema overlying the 1st metatarsophalangeal joint with mild hallux valgus. No osseous erosion or soft tissue calcification is seen. Dictated by: Franck Perdomo M.D. on 06/18/2021 at 22:27 Approved by: Franck Perdomo M.D. on 06/18/2021 at 22:29
[2021-06-18 23:07] LABS: Add Manual Diff / Slide Review NO; Basophils Absolute Auto 100 /uL (0-100); Basophils Percent Auto 0.6 % (0-2); Eosinophils Absolute Auto 100 /uL (0-450); Hematocrit 33.8 % (36-46); Hemoglobin 11.2 g/dL (12.0-16.0); Lymphocytes Absolute Auto 2900 /uL (1100-4500); Lymphocytes Percent Auto 21.4 % (25-40); Mean Corpuscular HGB Conc 33.1 % (30-36); Mean Corpuscular Hemoglobin 28.7 PG (26-34); Mean Corpuscular Volume 86.9 fL (80-100); Monocytes Absolute Auto 500 /uL (0-900); Monocytes Percent Auto 3.6 % (3-14); Neutrophils Absolute Auto 9900 /uL (1500-7000); Neutrophils Percent Auto 73.4 % (50-75); Platelet Count 310 X10^3/uL (150-400); Red Blood Cell Count 3.88 X10^6/uL (4.0-5.2); Red Cell Distribution Width 13.1 % (11.6-14.8); White Blood Cell Count 13.5 X10^3/uL (4.5-11.0)
[2021-06-18 23:21] LABS: C-Reactive Protein Quant 0.9 mg/dL (<1.0)
[2021-06-18 23:32] LABS: Erythrocyte Sedimentation Rate 60 MM/HR (0-20)
[2021-06-18] MEDS: COLCHICINE 0.6 MG TABLET 1.2 MG PO (23:42)
[2021-06-18 23:57] VITALS: BP 196/91; PULSE 55; RESP 16; O2SAT 97
== END 2021-06-18 23:58 | disposition home or self-care (01) ==
PROVIDERS: Emergency Provider Emergency Medicine; PCP Internal Medicine
DX: M10.072 Idiopathic gout, left ankle and foot (principal)
CPT/HCPCS: 36415; 73630; 84550; 85025; 85651; 86140; 99283; 99284

== ENCOUNTER → 2021-09-04 15:34 | Outpatient (CLI) | payer MEDICARE, MEDICAID, SELFPAY ==
[2021-06-02 16:21] VITALS: BMI 42.3
[2021-09-04 16:46] LABS: Hemoglobin A1C% w Est Avg Glu 7.8 % (4.0-6.0)
[2021-09-04 18:05] LABS: BUN Creatinine Ratio 17.9 (6-22); Blood Urea Nitrogen 19 mg/dL (7-17); Calcium 9.7 mg/dL (8.4-10.2); Carbon Dioxide 27 mmol/L (22-32); Chloride 103 mmol/L (98-107); Estimated Glomerular Filt Rate 50.7 mL/min (>60); Glucose 144 mg/dL (80-110); HEMOLYSIS < 15 (0-50); Potassium 4.2 mmol/L (3.4-5.1); Sodium 139 mmol/L (137-145)
== END ==
PROVIDERS: PCP Internal Medicine; Referring Provider Internal Medicine; Visit Provider Internal Medicine
DX: E11.65 Type 2 diabetes mellitus with hyperglycemia (principal); I10 Essential (primary) hypertension; N18.31 Chronic kidney disease, stage 3a
CPT/HCPCS: 36415; 80048; 83036

== ENCOUNTER → 2021-11-18 16:42 | Outpatient (CLI) | payer MEDICARE, MEDICAID, SELFPAY ==
[2021-06-02 16:21] VITALS: BMI 42.3
--- NOTE | 2021-11-18 16:46 | DI.MG.S_ITS ---
BILATERAL DIGITAL SCREENING MAMMOGRAM 3D/2D WITH CAD: 11/18/2021 CLINICAL: Routine screening. Comparison is made to exams dated: 06/28/2020 mammogram, 01/20/2019 mammogram, and 11/13/2017 mammogram - [facility]. There are scattered fibroglandular elements in both breasts. Current study was also evaluated with a Computer Aided Detection (CAD) system. There are benign calcifications in both breasts. No significant masses, calcifications, or other findings are seen in either breast. There has been no significant interval change. IMPRESSION: BENIGN There is no mammographic evidence of malignancy. A 1 year screening mammogram is recommended. This exam was interpreted at Station ID: [id number]. NOTE: For mammograms, a report in lay terms will be sent to the patient. Approximately 15% of breast malignancies will not be visualized mammographically. In the management of a palpable breast mass, a negative mammogram must not discourage biopsy of a clinically suspicious lesion. Electronically Signed By: Vic segal/leeroy:11/19/2021 07:10:37 letter sent: Normal Exam ACR BI-RADS Category 2: Benign Finding(s) 3342F
== END ==
PROVIDERS: PCP Internal Medicine; Referring Provider Internal Medicine; Visit Provider Internal Medicine
DX: Z12.31 Encounter for screening mammogram for malignant neoplasm of breast (principal)
CPT/HCPCS: 77063; 77067

== ENCOUNTER 2022-01-15 13:57 | Emergency (ER) | payer MEDICARE, MEDICAID, SELFPAY ==
[2021-06-02 16:21] VITALS: BMI 42.3
[2022-01-15 14:00] VITALS: BP 211/90; PULSE 58; RESP 16; TEMP 37.1; O2SAT 97; BMI 43.7
--- NOTE | 2022-01-15 14:26 | DI.RAD.S_ITS ---
PROCEDURE: XR CHEST 2V INDICATIONS: cough ,covid 2 weeks ago TECHNIQUE: 2 views of the chest were acquired. COMPARISON: None. FINDINGS: Surgical changes and devices: None. Lungs and pleura: Lungs are clear. No pleural effusions or pneumothorax. Mediastinum: Mediastinal contours are normal. Heart size is normal. Bones and chest wall: No suspicious bony abnormalities. Soft tissues appear unremarkable. IMPRESSION: No acute cardiopulmonary process demonstrated radiographically. Dictated by: Leo Dc M.D. on 01/15/2022 at 15:14 Approved by: Leo Dc M.D. on 01/15/2022 at 15:15
--- NOTE | 2022-01-15 14:47 | PC.NURSE ---
pt states she tested positive for covid 11 days ago but is not testing negative and still has a cough. pt is here because she thinks she may have a new upper respiratory infection and need azithromycin to feel better since she tested negative for covid this week. pt education given on length of covid symptoms even when testing negative.
--- NOTE | 2022-01-15 14:51 | ED_ITS ---
HPI - URI/Sore Throat <Moshe Wilson PA-C - Last Filed: 01/15/22 15:38> General Chief Complaint: Upper Respiratory Symptoms Stated Complaint: Thinks bronchitis x a wk. Covid 2 weeks ago Time Seen by Provider: 01/15/22 13:59 Source: patient Mode of arrival: Ambulatory History of Present Illness HPI Narrative: 76-year-old female presents to the emergency department due to a continued mild productive cough and ?feeling something? in her chest. States she was diagnosed with COVID approximately 2 weeks ago as well. Denies any chest pain or difficulty breathing. Denies any fevers, left arm pain, nausea, vomiting, or any other concerning signs or symptoms. Related Data Home Medications Medication Instructions Recorded Confirmed bimatoprost 0.01 % eye drops 1 drp EYE-BOTH DAILY 05/09/18 09/08/21 (Lumigan) cholecalciferol (vitamin D3) 50 2,000 unit PO DAILY 04/06/19 09/08/21 mcg (2,000 unit) tablet (Vitamin D3) Previous Rx's Medication Instructions Recorded insulin glargine 100 unit/mL (3 30 unit (0.3 mL) SUBCUT BID #54 mL 01/22/20 mL) subcutaneous pen (Basaglar KwikPen U-100 Insulin) hydrocortisone 2.5 % topical cream 1 applictn OK BID-QID PRN 02/21/20 with perineal applicator hemorrhoids #30 grams (Proctosol HC) lancets #300 ea 08/27/20 lancets (OneTouch UltraSoft #300 ea 08/27/20 Lancets) docusate sodium 100 mg capsule 100 mg PO BID #180 caps 11/18/20 insulin glargine 100 unit/mL (3 45 unit (0.45 mL) SUBCUT BID #135 01/17/21 mL) subcutaneous pen (Lantus mL Solostar U-100 Insulin) omeprazole 20 mg capsule,delayed 20 mg PO QDAY #90 caps 02/06/21 release albuterol sulfate 90 mcg/actuation 2 puff inhalation Q4H #36 grams 03/25/21 aerosol inhaler (Proventil HFA) clotrimazole-betamethasone 1 See Rx Instructions .Route 04/25/21 %-0.05 % topical cream .COMPLEX #45 grams Onetouch Ultra Blue Test Strips #250 ea 06/05/21 atenolol 25 mg tablet 25 mg PO DAILY #90 tabs 06/05/21 pen needle, diabetic 31 gauge x #300 ea 06/11/2112/15 (BD Ultra-Fine Short Pen Needle) indomethacin 50 mg capsule 50 mg PO TID #30 caps 06/18/21 simvastatin 20 mg tablet (Zocor) 20 mg PO QDAY #90 tabs 07/15/21 insulin lispro 100 unit/mL See Rx Instructions SUBCUT QID #15 08/21/21 subcutaneous pen (Humalog KwikPen mL (U-100) Insulin) furosemide 20 mg tablet 20 mg PO DAILY #90 tabs 10/13/21 lisinopril 20 mg tablet 40 mg PO DAILY #90 tabs 11/25/21 famotidine 40 mg tablet 40 mg PO DAILY #90 tabs 12/22/21 ibuprofen 600 mg tablet 600 mg PO Q6-8H PRN fever or pain 12/22/21 #90 tabs amlodipine 2.5 mg tablet 2.5 mg PO BID #180 tabs 01/08/22 hydrocodone 5 mg-acetaminophen 325 1 - 2 tab PO Q4-6H PRN pain #45 01/12/22 mg tablet tabs benzonatate 100 mg capsule 100 mg PO BID 10 days #20 caps 01/15/22 guaifenesin 600 mg tablet, 600 mg PO BID 10 days #20 tabs 01/15/22 extended release 12 hr (Mucinex) Allergies Allergy/AdvReac Type Severity Reaction Status Date / Time Horse/Equine Containing Allergy Severe Difficulty Verified 01/15/22 14:23 Products Breathing iodine [IODINE] Allergy Severe hives Verified 01/15/22 14:23 ciprofloxacin [CIPROFLOXACIN] AdvReac Intermediate swelling Verified 01/15/22 14:23 of feet cyclobenzaprine AdvReac Intermediate hyperactivi Verified 01/15/22 14:23 ty tramadol [TRAMADOL] AdvReac Intermediate headache; Verified 01/15/22 14:23 swelling in feet rosuvastatin [From CRESTOR] AdvReac Mild Swelling Verified 01/15/22 14:23 in feet Review of Systems <Moshe Wilson PA-C - Last Filed: 01/15/22 15:38> Review of Systems Narrative: GENERAL: Denies chills, fatigue, malaise, fever, sweats. HEENT: Denies sinus pain, ear pain, sore throat, difficulty swallowing, dizziness. RESPIRATORY: Denies dyspnea, , wheezing, hemoptysis, reports mild productive cough CARDIOVASCULAR: Denies chest pain, palpitations, orthopnea, edema, GASTROINTESTINAL: Denies nausea, vomiting, abdominal pain, diarrhea, constipation, melena. : Denies dysuria, frequency, incontinence, hematuria, urinary retention. MUSCULOSKELETAL: denies weakness, joint pain, or bony pain SKIN: Denies rash, skin lesions, or other NEUROLOGIC: Denies weakness, headache, numbness, change in speech, confusion, seizures, incoordination. PSYCHIATRIC: No concerning psychosocial issues. 12 point review of systems is negative except for those stated above Patient History <Moshe Wilson PA-C - Last Filed: 01/15/22 15:38> Medical History Body mass index (BMI) of 40.0 to 44.9 in adult (04/30/17) Chronic kidney disease Chronic renal failure, stage 3a Diabetes mellitus (04/27/11) Diverticulosis of large intestine without hemorrhage (09/21/13) Essential hypertension Gastric polyp Gastroesophageal reflux disease without esophagitis (04/27/11) Low back pain without sciatica (05/31/15) Mild intermittent asthma without complication (04/27/11) Mixed hyperlipidemia (04/27/11) Morbid obesity (04/30/17) Pain in pelvis Pelvic adhesions PVCs (premature ventricular contractions) Type 2 diabetes mellitus with hyperglycemia (09/24/15) Vaginal atrophy Surgical History History of appendectomy History of bilateral salpingo-oophorectomy (BSO) History of total abdominal hysterectomy Social History marital status: number of children: 2 household members: none lives independently: Yes caregiver/support person: No housing: apartment pets and animals: No education level: high school occupational status: disabled 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 HEAD: Atraumatic. Normocephalic. EYES: Pupils equal round and reactive. Extraocular motions intact. No scleral icterus. No injection or drainage. ENT: Nose without bleeding, purulent drainage. Throat without erythema, t onsillar hypertrophy or exudate. Airway patent. NECK: Trachea midline. Non tender CARDIOVASCULAR: Regular rate and rhythm without murmurs, gallops, or rubs. RESPIRATORY: Clear to auscultation. Breath sounds equal bilaterally. No wheezes, rales, or rhonchi. GASTROINTESTINAL: Abdomen soft, non-tender, nondistended. EXTREMITIES: No edema or joint tenderness. BACK: Nontender without deformity or crepitance. No flank tenderness. NEURO: AOx3. SKIN: No rash or erythema of visible areas Initial Vital Signs Initial Vital Signs: Vital Signs Temperature 98.7 F 01/15/22 14:00 Pulse Rate 58 L 01/15/22 14:00 Respiratory Rate 16 01/15/22 14:00 Blood Pressure 211/90 H 01/15/22 14:00 Pulse Oximetry 97 01/15/22 14:00 Oxygen Delivery Method 01/15/22 14:00 <Satya Ashley DO - Last Filed: 01/23/22 20:38> Initial Vital Signs Initial Vital Signs: Vital Signs Temperature 98.7 F 01/15/22 14:00 Pulse Rate 58 L 01/15/22 14:00 Respiratory Rate 16 01/15/22 14:00 Blood Pressure 211/90 H 01/15/22 14:00 Pulse Oximetry 97 01/15/22 14:00 Oxygen Delivery Method 01/15/22 14:00 Course <Moshe Wilson PA-C - Last Filed: 01/15/22 15:38> Orders Ordered: ED Orders 01/15/22 14:26 Chest [XR chest 2V] Stat Vital Signs Vital signs: Vital Signs - 8 hr 01/15/22 14:00 Temperature 98.7 F Pulse Rate 58 L Respiratory Rate 16 Blood Pressure 211/90 H Pulse Oximetry 97 Oxygen Delivery Method Room Air <Satya Ashley DO - Last Filed: 01/23/22 20:38> Orders Ordered: ED Orders 01/15/22 14:26 Chest [XR chest 2V] Stat Vital Signs Vital signs: Vital Signs - 8 hr 01/15/22 14:00 Temperature 98.7 F Pulse Rate 58 L Respiratory Rate 16 Blood Pressure 211/90 H Pulse Oximetry 97 Oxygen Delivery Method Room Air MDM - URI/Sore Throat <Moshe Wilson PA-C - Last Filed: 01/15/22 15:38> Imaging Data Chest x-ray: Radiologist's Impression: [address] [address] XRay Report Signed Patient: Vijaya Mckeon MR#: [id number] : 1945 Acct:[id number] Age/Sex: 76 / F Date of Service: 01/15/22 Loc: ED Accession Number: [id number] ?? Procedure: XR chest 2V Ordering Provider: Moshe Wilson P.A-C PROCEDURE:? XR CHEST 2V ? INDICATIONS:? cough ,covid 2 weeks ago ? TECHNIQUE:? 2 views of the chest were acquired.? ? COMPARISON:? None. ? FINDINGS:? ? Surgical changes and devices:? None.? ? Lungs and pleura:? Lungs are clear.? No pleural effusions or pneumothorax.? ? Mediastinum:? Mediastinal contours are normal.? Heart size is normal.? ? Bones and chest wall:? No suspicious bony abnormalities.? Soft tissues appear unremarkable.? ? IMPRESSION:? No acute cardiopulmonary process demonstrated radiographically. ? ? Dictated by: Leo Dc M.D. on 01/15/2022 at 15:14 ? ? Approved by: Leo Dc M.D. on 01/15/2022 at 15:15 ? [facility] Narrative Medical decision making narrative: 76-year-old female presenting due to continued productive cough. Suspect this is secondary to her recent COVID infection. Chest x-ray ordered which showed no evidence of a pneumonia or any other abnormal findings. Recommended symptomatic and conservative management. Mucinex and Tessalon Perles prescribed to help with symptoms. Patient's blood pressure was noted to be elevated although she states that she has a history of HTN and that it always gets high at the doctors. Denies any chest pain vision changes, or headaches concerning for hypertensive emergency. Discharge Plan Departure Patient Disposition: Home Clinical Impression: Cough Instructions: Cough Activity Restrictions/Additional Instructions: Thank you for coming to the [facility] Emergency Department today. I suspect the cough you experiencing is due to recent COVID infection. Chest x-ray showed no evidence of any kind of pneumonia or any other abnormal findings. Please take these medications prescribed which should help with the cough. These is are okay to take with diabetes. Please resume taking your normal blood pressure medications when you get home. I hope you feel better soon. Prescriptions: New benzonatate 100 mg capsule 100 mg PO BID 10 Days Qty: 20 0RF guaifenesin [Mucinex] 600 mg tablet extended release 12hr 600 mg PO BID 10 Days Qty: 20 0RF No Action Basaglar KwikPen U-100 Insulin 100 unit/mL (3 mL) insulin pen 30 unit SUBCUT BID Qty: 54 3RF hydrocortisone [Proctosol HC] 2.5 % cream with perineal applicator 1 applictn OK BID-QID PRN (Reason: hemorrhoids) Qty: 30 1RF (DME) lancets See Rx Instructions .Route .MEDSUPPLY Qty: 300 3RF Rx Instructions: use to check blood sugar 5 times a day (DME) lancets [OneTouch UltraSoft Lancets] Misc See Rx Instructions .ROUTE .MEDSUPPLY Qty: 300 3RF Rx Instructions: Use to check blood sugars 5x a day or as directed by physician. docusate sodium 100 mg capsule 100 mg PO BID Qty: 180 1RF omeprazole 20 mg capsule,delayed release(DR/EC) 20 mg PO QDAY Qty: 90 3RF Label Comments: usally takes every other day albuterol sulfate [Proventil HFA] 90 mcg/actuation HFA aerosol inhaler 2 puff inhalation Q4H Qty: 36 3RF clotrimazole-betamethasone 1-0.05 % cream See Rx Instructions .ROUTE .COMPLEX Qty: 45 3RF Dose Instruction: apply to affected area three times a day Rx Instructions: apply to affected area three times a day atenolol 25 mg tablet 25 mg PO DAILY Qty: 90 2RF (DME) Onetouch Ultra Blue Test Strips Qty: 250 6RF Dose Instruction: As directed Rx Instructions: Use to test blood sugars 5x a day or as directed by PCP. (DME) pen needle, diabetic [BD Ultra-Fine Short Pen Needle] 31 gauge x 5/16 needle See Dose Instructions .ROUTE .MEDSUPPLY Qty: 300 11RF Dose Instruction: As directed Rx Instructions: use 5 times daily as directed simvastatin [Zocor] 20 mg tablet 20 mg PO QDAY Qty: 90 1RF insulin lispro [Humalog KwikPen Insulin] 100 unit/mL insulin pen See Rx Instructions SUBCUT QID Qty: 15 8RF Rx Instructions: SUBCUT four times daily; Inject 8-28 units subcutaneously before meals BASED ON CARB INTAKE four times a day.SUBCUT use as directed; furosemide 20 mg tablet 20 mg PO DAILY Qty: 90 1RF lisinopril 20 mg tablet 40 mg PO DAILY Qty: 90 2RF famotidine 40 mg tablet 40 mg PO DAILY Qty: 90 1RF ibuprofen 600 mg tablet 600 mg PO Q6-8H PRN (Reason: fever or pain) Qty: 90 1RF amlodipine 2.5 mg tablet 2.5 mg PO BID Qty: 180 0RF hydrocodone-acetaminophen 5-325 mg tablet 1 - 2 tab PO Q4-6H PRN (Reason: pain) Qty: 45 0RF bimatoprost [Lumigan] 0.01 % drops 1 drp EYE-BOTH DAILY Lantus Solostar U-100 Insulin 100 unit/mL (3 mL) insulin pen 45 unit SUBCUT BID Qty: 135 3RF cholecalciferol (vitamin D3) [Vitamin D3] 2,000 unit Tablet 2,000 unit PO DAILY indomethacin 50 mg capsule 50 mg PO TID Qty: 30 0RF Rx Instructions: administer with food or milk Referrals: Carlos Arrington MD [Primary Care Provider] - Visit Report Forms: Patient Portal/API <Satya Ashley DO - Last Filed: 01/23/22 20:38> Cosign ED Attending Cosignature Attestation: I was immediately available in the department for consultation. This documentation has been reviewed and I agree with assessment and plan. Supervised by Satya Ashley DO
== END 2022-01-15 15:46 | disposition home or self-care (01) ==
PROVIDERS: Emergency Provider Physician Assistant Medical; PCP Internal Medicine
DX: R05.9 Cough, unspecified (principal); Z86.16 Personal history of COVID-19
CPT/HCPCS: 71046; 99281; 99283

== ENCOUNTER → 2022-02-27 15:45 | Outpatient (CLI) | payer MEDICARE, MEDICAID, SELFPAY ==
[2021-06-02 16:21] VITALS: BMI 42.3
[2022-02-27 18:18] LABS: Hemoglobin A1C% w Est Avg Glu 7.6 % (4.0-6.0)
[2022-02-27 18:20] LABS: Alanine Aminotransferase 16 IU/L (<35); Albumin 4.3 g/dL (3.5-5.0); Albumin Globulin Ratio 1.3 (1.0-2.8); Alkaline Phosphatase 66 U/L (38-126); Aspartate Aminotransferase 23 IU/L (14-36); BUN Creatinine Ratio 16.9 (6-22); Bilirubin Total 0.6 mg/dL (0.2-1.3); Blood Urea Nitrogen 20 mg/dL (7-17); Calcium 9.1 mg/dL (8.4-10.2); Carbon Dioxide 25 mmol/L (22-32); Chloride 106 mmol/L (98-107); Cholesterol 203 mg/dL (140-199); Estimated Glomerular Filt Rate 48 mL/min (>60); Globulin 3.2 g/dL (1.7-4.1); Glucose 125 mg/dL (80-110); HDL Cholesterol 59 mg/dL (40-60); HEMOLYSIS < 15 (0-50); LDL Cholesterol Calculated 118 mg/dL (<100); Potassium 4.1 mmol/L (3.4-5.1); Sodium 140 mmol/L (137-145); Total Protein 7.5 g/dL (6.3-8.2); Triglycerides 128 mg/dL (35-150)
[2022-02-27 19:11] LABS: Vitamin B12 381 pg/mL (239-931)
== END ==
PROVIDERS: PCP Internal Medicine; Referring Provider Internal Medicine; Visit Provider Internal Medicine
DX: E11.65 Type 2 diabetes mellitus with hyperglycemia (principal); E11.9 Type 2 diabetes mellitus without complications; I10 Essential (primary) hypertension; K21.9 Gastro-esophageal reflux disease without esophagitis; K31.7 Polyp of stomach and duodenum; N18.31 Chronic kidney disease, stage 3a; Z79.4 Long term (current) use of insulin
CPT/HCPCS: 36415; 80053; 80061; 82607; 83036

== ENCOUNTER → 2022-05-28 16:54 | Outpatient (CLI) | payer MEDICARE, MEDICAID, SELFPAY ==
[2021-06-02 16:21] VITALS: BMI 42.3
[2022-05-28 18:33] LABS: Hemoglobin A1C% w Est Avg Glu 7.2 % (4.0-6.0)
[2022-05-28 18:37] LABS: BUN Creatinine Ratio 12.8 (6-22); Blood Urea Nitrogen 14 mg/dL (7-17); Calcium 9.3 mg/dL (8.4-10.2); Carbon Dioxide 26 mmol/L (22-32); Chloride 102 mmol/L (98-107); Estimated Glomerular Filt Rate 53 mL/min (>60); Glucose 111 mg/dL (80-110); HEMOLYSIS < 15 (0-50); Potassium 4.1 mmol/L (3.4-5.1); Sodium 139 mmol/L (137-145)
== END ==
PROVIDERS: PCP Internal Medicine; Referring Provider Internal Medicine; Visit Provider Internal Medicine
DX: E13.8 Other specified diabetes mellitus with unspecified complications (principal); I10 Essential (primary) hypertension; N18.31 Chronic kidney disease, stage 3a; Z79.4 Long term (current) use of insulin
CPT/HCPCS: 36415; 80048; 83036

== ENCOUNTER → 2022-07-09 15:04 | Outpatient (CLI) | payer MEDICARE, MEDICAID, SELFPAY ==
[2021-06-02 16:21] VITALS: BMI 42.3
[2022-07-09 17:16] LABS: BUN Creatinine Ratio 16.8 (6-22); Blood Urea Nitrogen 16 mg/dL (7-17); Calcium 8.7 mg/dL (8.4-10.2); Carbon Dioxide 24 mmol/L (22-32); Chloride 102 mmol/L (98-107); Estimated Glomerular Filt Rate > 60 mL/min (>60); Glucose 194 mg/dL (80-110); HEMOLYSIS < 15 (0-50); Sodium 139 mmol/L (137-145)
== END ==
PROVIDERS: PCP Internal Medicine; Referring Provider Internal Medicine; Visit Provider Internal Medicine
DX: I10 Essential (primary) hypertension (principal); N18.31 Chronic kidney disease, stage 3a
CPT/HCPCS: 36415; 80048

== ENCOUNTER → 2022-08-24 14:49 | Outpatient (CLI) | payer MEDICARE, MEDICAID, SELFPAY ==
[2021-06-02 16:21] VITALS: BMI 42.3
[2022-08-24 16:23] LABS: Hemoglobin A1C% w Est Avg Glu 7.9 % (4.0-6.0)
[2022-08-24 16:40] LABS: BUN Creatinine Ratio 15.1 (6-22); Blood Urea Nitrogen 19 mg/dL (7-17); Carbon Dioxide 23 mmol/L (22-32); Chloride 103 mmol/L (98-107); Estimated Glomerular Filt Rate 45 mL/min (>60); Glucose 115 mg/dL (80-110); HEMOLYSIS < 15 (0-50); Potassium 4.4 mmol/L (3.4-5.1); Sodium 138 mmol/L (137-145)
== END ==
PROVIDERS: PCP Internal Medicine; Referring Provider Internal Medicine; Visit Provider Internal Medicine
DX: E13.8 Other specified diabetes mellitus with unspecified complications (principal); N18.31 Chronic kidney disease, stage 3a; Z79.4 Long term (current) use of insulin
CPT/HCPCS: 36415; 80048; 83036

== ENCOUNTER → 2022-09-08 14:33 | Outpatient (CLI) | payer MEDICARE, MEDICAID, SELFPAY ==
[2021-06-02 16:21] VITALS: BMI 42.3
[2022-09-08 15:21] LABS: Add Manual Diff / Slide Review NO; Basophils Absolute Auto 0 /uL (0-100); Basophils Percent Auto 0.3 % (0-2); Eosinophils Absolute Auto 100 /uL (0-450); Eosinophils Percent Auto 1.1 % (2-4); Hematocrit 35.1 % (36-46); Hemoglobin 11.6 g/dL (12.0-16.0); Lymphocytes Absolute Auto 3500 /uL (1100-4500); Lymphocytes Percent Auto 29.8 % (25-40); Mean Corpuscular HGB Conc 33.1 % (30-36); Mean Corpuscular Hemoglobin 28.7 PG (26-34); Mean Corpuscular Volume 86.8 fL (80-100); Monocytes Absolute Auto 600 /uL (0-900); Monocytes Percent Auto 5.3 % (3-14); Neutrophils Absolute Auto 7500 /uL (1500-7000); Neutrophils Percent Auto 63.5 % (50-75); Platelet Count 288 X10^3/uL (150-400); Red Blood Cell Count 4.04 X10^6/uL (4.0-5.2); Red Cell Distribution Width 13.6 % (11.6-14.8); White Blood Cell Count 11.8 X10^3/uL (4.5-11.0)
[2022-09-08 15:24] LABS: Alanine Aminotransferase 17 IU/L (<35); Albumin 4.1 g/dL (3.5-5.0); Albumin Globulin Ratio 1.2 (1.0-2.8); Alkaline Phosphatase 80 U/L (38-126); Aspartate Aminotransferase 18 IU/L (14-36); Bilirubin Total 0.6 mg/dL (0.2-1.3); Blood Urea Nitrogen 19 mg/dL (7-17); Calcium 9.3 mg/dL (8.4-10.2); Carbon Dioxide 28 mmol/L (22-32); Chloride 100 mmol/L (98-107); Estimated Glomerular Filt Rate 48 mL/min (>60); Globulin 3.5 g/dL (1.7-4.1); Glucose 184 mg/dL (80-110); HEMOLYSIS < 15 (0-50); Magnesium 1.4 mg/dL (1.6-2.3); Potassium 4.3 mmol/L (3.4-5.1); Sodium 138 mmol/L (137-145); Total Protein 7.6 g/dL (6.3-8.2)
== END ==
PROVIDERS: PCP Internal Medicine; Referring Provider Internal Medicine; Visit Provider Internal Medicine
DX: D64.9 Anemia, unspecified (principal); I10 Essential (primary) hypertension; N18.31 Chronic kidney disease, stage 3a
CPT/HCPCS: 36415; 80053; 83735; 85025

== ENCOUNTER → 2022-09-16 15:15 | Outpatient (CLI) | payer MEDICARE, MEDICAID, SELFPAY ==
[2021-06-02 16:21] VITALS: BMI 42.3
--- NOTE | 2022-10-01 08:30 | P.HOLT.S_ITS ---
Mental Health Associate Report Referral & Results Date Patient Seen: 09/16/22 Requesting provider: Carlos Arrington Indication: Cardiac arrhythmia Duration of monitoring (days): 5 Diary information: There were 2 patient triggered events and 1 patient diary entry Patient triggered events were associated with sinus rhythm and PACs Patient diary entry could not be located Data: Minimum heart rate identified was 36 beats per minute at 11:26 on 09/17/2022 Maximum sinus heart rate which was also the overall maximum heart rate was 76 beats per minute at 21:40 on 09/16/2022 Proximally 9.1% of identified beats were supraventricular ectopic in origin which would classify them as frequent Less than 1% of identified beats were ventricular ectopic in origin which classify them as rare There were no pauses of 3 seconds or longer, episodes of atrial fibrillation or SVT identified on this study Impression: 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 Patient also with frequent PACs Clinical correlation suggested
== END ==
PROVIDERS: PCP Internal Medicine; Referring Provider Internal Medicine; Visit Provider Internal Medicine
DX: I49.9 Cardiac arrhythmia, unspecified (principal)
CPT/HCPCS: 93242; 93244

== ENCOUNTER → 2022-11-23 16:12 | Outpatient (CLI) | payer MEDICARE, MEDICAID, SELFPAY ==
[2021-06-02 16:21] VITALS: BMI 42.3
[2022-11-23 17:29] LABS: BUN Creatinine Ratio 17.7 (6-22); Blood Urea Nitrogen 22 mg/dL (7-17); Calcium 9.2 mg/dL (8.4-10.2); Carbon Dioxide 25 mmol/L (22-32); Chloride 103 mmol/L (98-107); Estimated Glomerular Filt Rate 45 mL/min (>60); Glucose 111 mg/dL (80-110); HEMOLYSIS < 15 (0-50); Potassium 4.1 mmol/L (3.4-5.1); Sodium 137 mmol/L (137-145)
[2022-11-25 00:36] LABS: Labcorp Hemoglobin (Hb) A1c 7.6 % (4.8-5.6)
== END ==
PROVIDERS: PCP Internal Medicine; Referring Provider Internal Medicine; Visit Provider Internal Medicine
DX: I10 Essential (primary) hypertension (principal); N18.31 Chronic kidney disease, stage 3a; E11.9 Type 2 diabetes mellitus without complications
CPT/HCPCS: 36415; 80048; 83036

== ENCOUNTER → 2023-01-08 15:10 | Outpatient (CLI) | payer MEDICARE, MEDICAID, SELFPAY ==
[2021-06-02 16:21] VITALS: BMI 42.3
--- NOTE | 2023-01-08 15:38 | DI.DEXA.S_ITS ---
Bone Density Report Name: SERGEY GEIGER Age: 77 Sex: Female Ethnicity: White Date of : 1945 Indication: postmenopausal; screening for osteoporosis; Referring Provider: REMEDIOS WHITLEY Study: Bone densitometry was performed. Exam Date: January 08, 2023 Accession number: [id number] Bone Density: Region BMD T-score Z-score Classification AP Spine(L1-L4) 1.238 1.7 4.2 Normal Femoral Neck (Left) 0.891 0.4 2.5 Normal Total Hip (Left) 1.060 1.0 2.8 Normal Femoral Neck (Right) 0.964 1.0 3.2 Normal Total Hip (Right) 1.100 1.3 3.1 Normal Total Hip Mean 1.080 1.2 3.0 Normal World Health Organization criteria for BMD impression classify patients as: Normal (T-score at or above -1.0), Osteopenia (T-score between -1.0 and -2.5), or Osteoporosis (T-score at or below -2.5). 10-year Fracture Risk: FRAX not reported because: All T-scores for Spine Total, Hip Total, Femoral Neck at or above -1.0 Previous Exams: -- Region Exam Age BMD T-score BMD Change BMD Change Date g/cm2 vs Baseline vs Previous -- AP Spine (L1-L4) 01/08/2023 77 1.238 1.7 -0.048 (-3.8%)# -0.048 (-3.8%)# 05/08/2014 69 1.287 2.2 Total Hip(Left) 01/08/2023 77 1.060 1.0 -0.033 (-3.0%)# -0.033 (-3.0%)# 05/08/2014 69 1.093 1.2 Total Hip(Right) 01/08/2023 77 1.100 1.3 -0.053 (-4.6%)# -0.053 (-4.6%)# 05/08/2014 69 1.152 1.7 -- *Denotes significance at 95% confidence level, LSC for AP Spine = 0.022 g/cm2, LSC for Total Hip = 0.027 g/cm2 # Denotes dissimilar scan types or analysis methods Impression: The patient has normal bone mass. No significant bone loss was observed. Discussion: LOW RISK OF FRACTURE; BONE DENSITY IS WELL ABOVE THE MINIMUM DESIRABLE LEVEL AND ABOVE AVERAGE FOR AGE AND SEX AT ALL SKELETAL SITES TESTED. This person's bone density is above expected limits for age and sex. This is rarely clinically significant, but should be pursued if there are significant musculoskeletal complaints. The patient should follow a healthful lifestyle (good nutrition with adequate calcium and vitamin D, and appropriate weight-bearing exercise). Follow-Up: Consider repeating this study in 5 years or sooner if there is some new clinical indication. Reported by: IMAN BLACKWELL M.D. on 01/08/2023 3:49:00 PM.
== END ==
PROVIDERS: PCP Internal Medicine; Referring Provider Internal Medicine; Visit Provider Internal Medicine
DX: Z78.0 Asymptomatic menopausal state; Z13.820 Encounter for screening for osteoporosis
CPT/HCPCS: 77080

== ENCOUNTER → 2023-01-15 18:56 | Outpatient (CLI) | payer MEDICARE, MEDICAID, SELFPAY ==
[2021-06-02 16:21] VITALS: BMI 42.3
== END ==
PROVIDERS: PCP Internal Medicine; Visit Provider Physician Assistant
DX: R30.0 Dysuria (principal)
CPT/HCPCS: 87086

== ENCOUNTER → 2023-01-22 11:22 | Outpatient (CLI) | payer MEDICARE, MEDICAID, SELFPAY ==
[2021-06-02 16:21] VITALS: BMI 42.3
--- NOTE | 2023-01-22 11:28 | DI.RAD.S_ITS ---
PROCEDURE: XR ACUTE ABDOMEN SERIES INDICATIONS: abdominal/pelvic pain TECHNIQUE: One view chest and two views of the abdomen were acquired. COMPARISON: CT, KIDNEY/ URETER/BLADDER, 06/24/2015, 15:12. CR, XR CHEST 2V, 01/15/2022, 14:13. FINDINGS: Surgical changes and devices: None. Chest: Lungs are clear. Heart size is normal. No pleural effusions. No pneumoperitoneum. Abdomen: Bowel gas pattern is nonspecific, nonobstructive. Calcifications in the left upper quadrant are probably pancreatic calcifications. Visualized solid organ contours appear normal. Bones: No suspicious bony lesions. IMPRESSION: Nonspecific, nonobstructive bowel gas pattern. Dictated by: Saul Mensah M.D. on 01/22/2023 at 20:38 Approved by: Saul Mensah M.D. on 01/22/2023 at 20:41
[2023-01-22 13:23] LABS: Hematocrit 33.6 % (36-46); Hemoglobin 11.2 g/dL (12.0-16.0); Mean Corpuscular HGB Conc 33.2 % (30-36); Mean Corpuscular Hemoglobin 29.4 PG (26-34); Mean Corpuscular Volume 88.4 fL (80-100); Platelet Count 307 X10^3/uL (150-400); Red Blood Cell Count 3.81 X10^6/uL (4.0-5.2); Red Cell Distribution Width 13.7 % (11.6-14.8); White Blood Cell Count 12.7 X10^3/uL (4.5-11.0)
[2023-01-22 13:50] LABS: BUN Creatinine Ratio 17.5 (6-22); Blood Urea Nitrogen 25 mg/dL (7-17); Carbon Dioxide 23 mmol/L (22-32); Chloride 103 mmol/L (98-107); Estimated Glomerular Filt Rate 38 mL/min (>60); HEMOLYSIS < 15 (0-50); Potassium 4.4 mmol/L (3.4-5.1); Sodium 138 mmol/L (137-145)
[2023-01-22 13:51] LABS: Alanine Aminotransferase 18 IU/L (<35); Albumin Globulin Ratio 1.3 (1.0-2.8); Alkaline Phosphatase 82 U/L (38-126); Aspartate Aminotransferase 19 IU/L (14-36); Bilirubin Total 0.4 mg/dL (0.2-1.3); Calcium 8.6 mg/dL (8.4-10.2); Glucose 130 mg/dL (80-110); Magnesium 1.8 mg/dL (1.6-2.3)
[2023-01-22 14:16] LABS: Appearance Urine UA CLEAR; Bilirubin Urine UA NEGATIVE (NEGATIVE); Color Urine UA YELLOW; Glucose Urine UA NEGATIVE (Negative); Ketones Urine UA NEGATIVE (NEGATIVE); Leukocyte Esterase Urine UA 3+ (NEGATIVE); Nitrite Urine UA NEGATIVE (Negative); Occult Blood Urine UA NEGATIVE (Negative); Protein Urine UA NEGATIVE (Negative); Urobilinogen Urine UA 0.2 E.U./dL (0.2); pH Urine UA 5.5 (4.5-8.0)
[2023-01-22 14:38] LABS: RBC Urine 1-5/HPF (0-5/HPF)
[2023-01-22 14:39] LABS: Bacteria Urine Moderate (10-30); Culture Indicated Urine Specimen Cultured; Squamous Epithelial Cell Urine 5-10 /HPF (0-5/HPF); Transitional Epi Cells Urine 1-5/HPF (0-5/HPF); WBC Urine 5-10/HPF (0-5/HPF)
[2023-01-22 15:01] LABS: Neutrophils Absolute Manual 8509 /uL (3000-5900); Total Cells Counted 100
[2023-01-22 15:02] LABS: RBC Morphology Normal Morphology
[2023-01-23 07:31] LABS: x Labcorp Estim. Avg Glu (eAG) 171 mg/dL (.); x Labcorp Hemoglobin A1c 7.6 % (4.8-5.6)
== END ==
LOC: LAB 11:23 → RAD 11:27
PROVIDERS: PCP Internal Medicine; Referring Provider Internal Medicine; Visit Provider Internal Medicine
DX: R10.2 Pelvic and perineal pain (principal); R10.9 Unspecified abdominal pain; E11.22 Type 2 diabetes mellitus with diabetic chronic kidney disease; I12.9 Hypertensive chronic kidney disease with stage 1 through stage 4 chronic kidney disease, or unspecified chronic kidney disease; N18.31 Chronic kidney disease, stage 3a
CPT/HCPCS: 36415; 74022; 80053; 81001; 83036; 83735; 85025; 87086

== ENCOUNTER → 2023-01-27 14:23 | Outpatient (CLI) | payer MEDICARE, MEDICAID, SELFPAY ==
[2021-06-02 16:21] VITALS: BMI 42.3
--- NOTE | 2023-01-27 14:25 | DI.CT.S_ITS ---
PROCEDURE: CT ABDOMEN PELVIS W CON INDICATIONS: Pelvic pain TECHNIQUE: After the administration of oral and IV contrast, axial sections were acquired from the lung bases to the pubic symphysis. Coronal and sagittal reformats were performed. For radiation dose reduction, the following was used: automated exposure control, adjustment of mA and/or kV according to patient size. COMPARISON: [facility], CT, KIDNEY/ URETER/BLADDER, 06/24/2015, 15:12. [facility], CT, ABDOMEN/PELVIS WITH CONTRAST, 03/31/2012, 12:59. FINDINGS: Image quality: Excellent. Lung bases: Unremarkable. Heart: No significant findings. ABDOMEN: Liver: Focal fatty infiltration is seen adjacent to the falciform ligament. Gallbladder: Gallbladder is distended measuring up to 6.5 cm in diameter. No calcified gallstones or pericholecystic inflammatory changes are seen. Biliary ducts: No significant intrahepatic or extrahepatic biliary ductal dilatation. Pancreas: Atrophic appearance of the pancreas with numerous calcifications is consistent with chronic pancreatitis. A cystic lesion is seen in uncinate process of the pancreas measuring to 3.2 x 2.6 cm (37/2). Spleen: Unremarkable. Adrenal Glands: Unremarkable. Kidneys and Ureters: Unremarkable. Stomach and Bowel: Multiple diverticula are seen in the colon. There is possible subtle fat stranding adjacent to a diverticulum in the sigmoid colon (72/2). No pneumoperitoneum. No focal fluid collection. No signs of bowel obstruction. Appendix is not visualized and may be absent. Small hiatal hernia. Peritoneum: No abnormal intraperitoneal fluid. No free air. Ventral Wall: Small fat containing periumbilical hernia. Abdominal Nodes: No retroperitoneal or mesenteric adenopathy by size criteria. Vessels: Aorta and inferior vena cava are normal in size. PELVIS: Pelvic Organs: Status post hysterectomy. Bladder: Mildly underdistended. Pelvic Nodes: No enlarged lymph nodes. Miscellaneous: No inguinal hernias are seen. Bones: Mild degenerative changes are seen in the spine and sacroiliac joints. IMPRESSION: 1. Mild focal inflammatory fat stranding is seen adjacent to a diverticulum at the sigmoid colon within the pelvis, which is suspicious for acute uncomplicated sigmoid diverticulitis. 2. Dilated gallbladder without radiopaque gallstones or secondary signs of acute cholecystitis. No biliary duct dilatation. Recommend correlation with symptoms and laboratory values. 3. Sequelae of chronic pancreatitis. A 3.2 cm cyst in the uncinate process of the pancreas may represent a chronic fluid collection related to prior pancreatitis versus an IPMN or other cystic pancreatic lesion. Previously this lesion measured 1.[address] from 06/24/2015. Consider EUS versus six-month follow-up pancreas protocol MRI or CT. Approved by: Franck Perdomo M.D. on 01/27/2023 at 20:56
== END ==
PROVIDERS: PCP Internal Medicine; Referring Provider Internal Medicine; Visit Provider Internal Medicine
DX: K86.2 Cyst of pancreas (principal); K82.8 Other specified diseases of gallbladder; K57.90 Diverticulosis of intestine, part unspecified, without perforation or abscess without bleeding; R10.2 Pelvic and perineal pain
CPT/HCPCS: 74177; Q9967

== ENCOUNTER 2023-02-02 14:41 | Emergency (ER) | payer MEDICARE, MEDICAID, SELFPAY ==
[2021-06-02 16:21] VITALS: BMI 42.3
[2023-02-02 14:43] VITALS: BP 180/76; PULSE 45; RESP 18; TEMP 37.1; O2SAT 98; BMI 43.4
--- NOTE | 2023-02-02 17:45 | ED.RECABL ---
HPI - Recheck/Abnormal Lab/Rx <Mikal Kauffman PA-C - Last Filed: 02/02/23 18:31> General Chief Complaint: Recheck/Abnormal Lab/Rx Stated Complaint: needs diff medication for diverticulitis Time Seen by Provider: 02/02/23 15:14 Source: patient Mode of arrival: Ambulatory History of Present Illness HPI narrative: 77-year-old female with recently diagnosed uncomplicated, mild diverticulitis presents to the ED due to concern for side effects from the antibiotics that she was prescribed. Patient was diagnosed on 01/22/2023 with uncomplicated diverticulitis by her PCP, prescribed Bactrim and Flagyl. Patient states she took the medicines for 2 days, felt unpleasant side effects such as palpitations as well as a lower than usual heart rate. Patient stopped taking the medications since then, is not suffering those side-effects any longer. Patient states that she is continuing to have some mild abdominal pain from the diverticulitis and diarrhea. Patient states that she is trying to eat a lower fiber diet and working herself up to a normal diet gradually. Patient denies chest pain, shortness of breath. Patient would like to be prescribed alternative antibiotics for the diverticulitis, states that she has tolerated Augmentin well in the past. Related Data Home Medications Medication Instructions Recorded Confirmed bimatoprost 0.01 % eye drops 1 drp EYE-BOTH DAILY 05/09/18 01/22/23 (Lumigan) cholecalciferol (vitamin D3) 50 2,000 unit PO DAILY 04/06/19 01/22/23 mcg (2,000 unit) tablet (Vitamin D3) Previous Rx's Medication Instructions Recorded insulin glargine 100 unit/mL (3 30 unit (0.3 mL) SUBCUT BID #54 mL 01/22/20 mL) subcutaneous pen (Basaglar KwikPen U-100 Insulin) hydrocortisone 2.5 % topical cream 1 applictn AR BID-QID PRN 02/21/20 with perineal applicator hemorrhoids #30 grams (Proctosol HC) lancets #300 ea 08/27/20 lancets (OneTouch UltraSoft #300 ea 08/27/20 Lancets) albuterol sulfate 90 mcg/actuation 2 puff inhalation Q4H #36 grams 03/25/21 aerosol inhaler (Proventil HFA) indomethacin 50 mg capsule 50 mg PO TID #30 caps 06/18/21 insulin glargine 100 unit/mL (3 45 unit (0.45 mL) SUBCUT BID #135 02/12/22 mL) subcutaneous pen (Lantus mL Solostar U-100 Insulin) lisinopril 20 mg tablet 40 mg PO DAILY #180 tabs 04/16/22 ibuprofen 600 mg tablet 600 mg PO Q6-8H PRN fever or pain 06/04/22 #250 tabs insulin lispro 100 unit/mL See Rx Instructions SUBCUT QID #15 06/15/22 subcutaneous pen (Humalog KwikPen mL (U-100) Insulin) clotrimazole-betamethasone 1 See Rx Instructions .Route 07/03/22 %-0.05 % topical cream .COMPLEX #45 grams Onetouch Ultra Blue Test Strips #250 ea 07/08/22 pen needle, diabetic 31 gauge x #300 ea 08/11/2212/15 (BD Ultra-Fine Short Pen Needle) atenolol 25 mg tablet 25 mg PO DAILY #90 tabs 08/25/22 docusate sodium 100 mg capsule 100 mg PO BID #180 caps 08/25/22 magnesium oxide 400 mg PO DAILY #90 caps 09/08/22 omeprazole 20 mg capsule,delayed 20 mg PO QDAY #90 caps 10/15/22 release simvastatin 20 mg tablet (Zocor) 20 mg PO QDAY #90 tabs 11/05/22 amlodipine 2.5 mg tablet 2.5 mg PO BID #180 tabs 01/04/23 hydrocodone 5 mg-acetaminophen 325 1 - 2 tab PO Q4-6H PRN pain #90 01/07/23 mg tablet tabs furosemide 20 mg tablet 20 mg PO DAILY #90 tabs 01/18/23 Disabled Parking #1 ea 01/22/23 diphenhydramine HCl 25 mg capsule 50 mg PO ONCE #2 caps 01/25/23 prednisone 20 mg tablet See Rx Instructions PO .COMPLEX #8 01/25/23 tabs metronidazole 500 mg tablet 500 mg PO TID #30 tabs 01/28/23 sulfamethoxazole 800 1 tab PO BID #20 tabs 01/28/23 mg-trimethoprim 160 mg tablet famotidine 40 mg tablet 40 mg PO DAILY #90 tabs 01/29/23 amoxicillin 875 mg-potassium 1 tab PO Q8H 5 days #15 tabs 02/02/23 clavulanate 125 mg tablet Allergies Allergy/AdvReac Type Severity Reaction Status Date / Time Horse/Equine Containing Allergy Severe Difficulty Verified 02/02/23 14:54 Products Breathing iodine [IODINE] Allergy Severe hives Verified 02/02/23 14:54 ciprofloxacin [CIPROFLOXACIN] AdvReac Intermediate swelling Verified 02/02/23 14:54 of feet cyclobenzaprine AdvReac Intermediate hyperactivi Verified 02/02/23 14:54 ty tramadol [TRAMADOL] AdvReac Intermediate headache; Verified 02/02/23 14:54 swelling in feet rosuvastatin [From CRESTOR] AdvReac Mild Swelling Verified 02/02/23 14:54 in feet Review of Systems <Mikal Kauffman PA-C - Last Filed: 02/02/23 18:31> Review of Systems ROS Unobtainable: All systems reviewed & are unremarkable except as noted in HPI and below Constitutional Constitutional: Denies chills, Denies fatigue, Denies fever(s), Denies frequent falls, Denies lethargy and Denies weakness Eyes Eyes: Denies change in vision, Denies eye discharge, Denies irritation and Denies loss of vision ENT Ears, Nose, Mouth, and Throat: Denies change in voice, Denies dizziness, Denies neck pain, Denies sore throat and Denies throat swelling Cardiovascular Cardiovascular: Denies chest pain, Denies irregular heart rhythm, Denies lightheadedness, Denies palpitations, Denies dyspnea, Denies dyspnea on exertion and Denies orthopnea Respiratory Respiratory: Denies cough, Denies dyspnea, Denies dyspnea on exertion and Denies wheezing Gastrointestinal Gastrointestinal: Reports abdominal pain, Denies change in bowel habits, Reports diarrhea, Denies nausea and Denies vomiting Genitourinary Genitourinary: Denies hematuria, Denies flank pain, Denies urinary incontinence and Denies urinary urgency Musculoskeletal Musculoskeletal: Denies back pain, Denies muscle weakness, Denies neck pain, Denies numbness and Denies tingling Integumentary/Breasts Skin/Breast: Denies pruritus, Denies erythema, Denies rash and Denies wounds Neurologic Neurologic: Denies behavioral changes, Denies confusion, Denies dizziness, Denies frequent falls, Denies loss of vision, Denies numbness, Denies tingling and Denies weakness Psychiatric Psychiatric: Denies anxiety, Denies behavioral changes, Denies confusion, Denies depression, Denies homicidal ideation and Denies suicidal ideation Endocrine Endocrine: Denies fatigue, Denies flushing and Denies palpitations Hematologic/Lymphatic Hematologic/Lymphatic: Denies easy bruising Allergic/Immunologic Allergic/Immunologic: Denies urticaria, Denies throat swelling and Denies wheezing Patient History <Mikal Kauffman PA-C - Last Filed: 02/02/23 18:31> Medical History Body mass index (BMI) of 40.0 to 44.9 in adult (04/30/17) Chronic kidney disease Chronic renal failure, stage 3a COVID-19 (~12/2021) Diabetes mellitus (04/27/11) Diverticulosis of large intestine without hemorrhage (09/21/13) Essential hypertension Gastric polyp Gastroesophageal reflux disease without esophagitis (04/27/11) Low back pain without sciatica (05/31/15) Mild intermittent asthma without complication (04/27/11) Mixed hyperlipidemia (04/27/11) Morbid obesity (04/30/17) Pain in pelvis Pelvic adhesions PVCs (premature ventricular contractions) Type 2 diabetes mellitus with hyperglycemia (09/24/15) Vaginal atrophy Surgical History History of appendectomy History of bilateral salpingo-oophorectomy (BSO) History of total abdominal hysterectomy Social History marital status: number of children: 2 household members: none lives independently: Yes caregiver/support person: No housing: apartment pets and animals: No education level: high school occupational status: disabled 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: None leisure activities: games and reading Smoking Status: Never smoker Tobacco: How many years used: 0 quit status: quit date established second hand exposure: Yes (Childhood) alcohol intake: current substance use type: does not use Smoking Status: Never smoker alcohol intake frequency: holidays/special occasions only Substance Use Type: does not use Exam <Mikal Kauffman PA-C - Last Filed: 02/02/23 18:31> Narrative Exam Narrative: Const General:?cooperative, healthy appearing and comfortable [facility] Head:?normal to inspection Ears:?hearing grossly normal bilaterally Nose:?external nose normal Face and sinus:?normal facial exam and sinuses nontender Mouth:?oral mucosae normal Throat:?posterior oropharynx normal Eyes General:?appearance normal, both eyes and all related structures Neck Neck:?normal visual inspection and no lymphadenopathy noted Resp Effort & Inspection:?normal respiratory effort Auscultation:?clear to auscultation bilaterally Cardio Rate:?regular rate Rhythm:?regular rhythm GI Abdomen is soft, nondistended. No tenderness to palpation. Neuro General:?patient alert, patient awake and patient oriented x3 Initial Vital Signs Initial Vital Signs: Vital Signs Temperature 98.8 F 02/02/23 14:43 Pulse Rate 45 L 02/02/23 14:43 Respiratory Rate 18 02/02/23 14:43 Blood Pressure 180/76 H 02/02/23 14:43 Pulse Oximetry 98 02/02/23 14:43 Oxygen Delivery Method Room Air 02/02/23 14:43 <Satya Ashley DO - Last Filed: 02/03/23 08:14> Initial Vital Signs Initial Vital Signs: Vital Signs Temperature 98.8 F 02/02/23 14:43 Pulse Rate 45 L 02/02/23 14:43 Respiratory Rate 18 02/02/23 14:43 Blood Pressure 180/76 H 02/02/23 14:43 Pulse Oximetry 98 02/02/23 14:43 Oxygen Delivery Method Room Air 02/02/23 14:43 Course <ART Cohen Last Filed: 02/02/23 18:31> Vital Signs Vital signs: Vital Signs - 8 hr 02/02/23 14:43 Temperature 98.8 F Pulse Rate 45 L Respiratory Rate 18 Blood Pressure 180/76 H Pulse Oximetry 98 Oxygen Delivery Method Room Air <DO Blanca Akbar Last Filed: 02/03/23 08:14> Vital Signs Vital signs: Vital Signs - 8 hr 02/02/23 14:43 Temperature 98.8 F Pulse Rate 45 L Respiratory Rate 18 Blood Pressure 180/76 H Pulse Oximetry 98 Oxygen Delivery Method Room Air MDM - Recheck/Abnormal Lab/Rx <ART Cohen Last Filed: 02/02/23 18:31> MDM Narrative Medical decision making narrative: 77-year-old female with recently diagnosed uncomplicated, mild diverticulitis presents to the ED due to concern for side effects from the antibiotics that she was prescribed. Patient appears stable, her symptoms seem to be improving gradually. Prescribed Augmentin. Recommend follow-up with PCP. ED return precautions discussed with patient. Patient verbalized understanding. Medical records reviewed: Yes Discharge Plan Departure Patient Disposition: Home Clinical Impression: Diverticulitis Instructions: DI for Diverticulitis Activity Restrictions/Additional Instructions: You were evaluated in the ED today for potential side-effects from antibiotics for diverticulitis. You are being switched from Bactrim and Flagyl to Augmentin, since you have tolerated Augmentin well in the past. Please take those as prescribed. Please also maintain a survey research manager diet with lower fiber and slowly advance the diet to normal diet. Please follow-up with your PCP as soon as possible. Return to the ED if you have if worsening symptoms, chest pain, shortness of breath. Prescriptions: New amoxicillin-pot clavulanate 875-125 mg tablet 1 tab PO Q8H 5 Days Qty: 15 0RF No Action Basaglar KwikPen U-100 Insulin 100 unit/mL (3 mL) insulin pen 30 unit SUBCUT BID Qty: 54 3RF hydrocortisone [Proctosol HC] 2.5 % cream with perineal applicator 1 applictn AR BID-QID PRN (Reason: hemorrhoids) Qty: 30 1RF (DME) lancets See Rx Instructions .Route .MEDSUPPLY Qty: 300 3RF Rx Instructions: use to check blood sugar 5 times a day (DME) lancets [OneTouch UltraSoft Lancets] Misc See Rx Instructions .ROUTE .MEDSUPPLY Qty: 300 3RF Rx Instructions: Use to check blood sugars 5x a day or as directed by physician. albuterol sulfate [Proventil HFA] 90 mcg/actuation HFA aerosol inhaler 2 puff inhalation Q4H Qty: 36 3RF insulin glargine [Lantus Solostar U-100 Insulin] 100 unit/mL (3 mL) insulin pen 45 unit SUBCUT BID Qty: 135 3RF lisinopril 20 mg tablet 40 mg PO DAILY Qty: 180 3RF insulin lispro [Humalog KwikPen Insulin] 100 unit/mL insulin pen See Rx Instructions SUBCUT QID Qty: 15 8RF Rx Instructions: SUBCUT four times daily; Inject 8-28 units subcutaneously before meals BASED ON CARB INTAKE four times a day.SUBCUT use as directed; clotrimazole-betamethasone 1-0.05 % cream See Rx Instructions .ROUTE .COMPLEX Qty: 45 3RF Dose Instruction: apply to affected area three times a day Rx Instructions: apply to affected area three times a day (DME) Onetouch Ultra Blue Test Strips Qty: 250 6RF Dose Instruction: As directed Rx Instructions: Use to test blood sugars 5x a day or as directed by PCP. (DME) pen needle, diabetic [BD Ultra-Fine Short Pen Needle] 31 gauge x 5/16 needle See Dose Instructions .ROUTE .MEDSUPPLY Qty: 300 11RF Dose Instruction: As directed Rx Instructions: use 5 times daily as directed atenolol 25 mg tablet 25 mg PO DAILY Qty: 90 3RF magnesium oxide 400 mg magnesium capsule 400 mg PO DAILY Qty: 90 3RF omeprazole 20 mg capsule,delayed release(DR/EC) 20 mg PO QDAY Qty: 90 1RF Patient Comments: usally takes every other day simvastatin [Zocor] 20 mg tablet 20 mg PO QDAY Qty: 90 1RF amlodipine 2.5 mg tablet 2.5 mg PO BID Qty: 180 3RF hydrocodone-acetaminophen 5-325 mg tablet 1 - 2 tab PO Q4-6H PRN (Reason: pain) Qty: 90 0RF furosemide 20 mg tablet 20 mg PO DAILY Qty: 90 2RF prednisone 20 mg tablet See Rx Instructions PO .COMPLEX Qty: 8 0RF Rx Instructions: 40mg (2 tabs) once [address], again 8 hours before, and last time 60 min before scheduled time of CT diphenhydramine HCl 25 mg capsule 50 mg PO ONCE Qty: 2 0RF Rx Instructions: take once [address] scan sulfamethoxazole-trimethoprim 800-160 mg tablet 1 tab PO BID Qty: 20 0RF metronidazole 500 mg tablet 500 mg PO TID Qty: 30 0RF famotidine 40 mg tablet 40 mg PO DAILY Qty: 90 1RF bimatoprost [Lumigan] 0.01 % drops 1 drp EYE-BOTH DAILY docusate sodium 100 mg capsule 100 mg PO BID Qty: 180 1RF ibuprofen 600 mg tablet 600 mg PO Q6-8H PRN (Reason: fever or pain) Qty: 250 2RF (DME) Disabled Parking See Rx Instructions .ROUTE .MEDSUPPLY Qty: 1 0RF Rx Instructions: Patient qualifies for disabled parking as per the attached form. cholecalciferol (vitamin D3) [Vitamin D3] 2,000 unit Tablet 2,000 unit PO DAILY indomethacin 50 mg capsule 50 mg PO TID Qty: 30 0RF Rx Instructions: administer with food or milk Referrals: Carlos Arrington MD [Primary Care Provider] - Stand Alone Forms: Patient Portal/API <Satya Ashley DO - Last Filed: 02/03/23 08:14> Cosign ED Attending Cosignature Attestation: I was immediately available in the department for consultation. This documentation has been reviewed and I agree with assessment and plan. Supervised by Satya Ashley DO
== END 2023-02-02 15:51 | disposition home or self-care (01) ==
PROVIDERS: Emergency Provider Student in an Organized Health Care Education/Training Program; PCP Internal Medicine
DX: K57.92 Diverticulitis of intestine, part unspecified, without perforation or abscess without bleeding (principal)
CPT/HCPCS: 99281

== ENCOUNTER → 2023-05-24 16:53 | Outpatient (CLI) | payer MEDICARE, MEDICAID, SELFPAY ==
[2021-06-02 16:21] VITALS: BMI 42.3
[2023-05-24 18:22] LABS: Hemoglobin A1C% w Est Avg Glu 8.3 % (4.0-6.0)
[2023-05-24 18:36] LABS: Alanine Aminotransferase 17 IU/L (<35); Albumin 4.2 g/dL (3.5-5.0); Albumin Globulin Ratio 1.2 (1.0-2.8); Alkaline Phosphatase 68 U/L (38-126); Aspartate Aminotransferase 23 IU/L (14-36); BUN Creatinine Ratio 16.9 (6-22); Bilirubin Total 0.4 mg/dL (0.2-1.3); Blood Urea Nitrogen 21 mg/dL (7-17); Calcium 9.1 mg/dL (8.4-10.2); Carbon Dioxide 28 mmol/L (22-32); Chloride 99 mmol/L (98-107); Cholesterol 190 mg/dL (140-199); Estimated Glomerular Filt Rate 45 mL/min (>60); Globulin 3.4 g/dL (1.7-4.1); Glucose 102 mg/dL (80-110); HDL Cholesterol 53 mg/dL (40-60); HEMOLYSIS < 15 (0-50); LDL Cholesterol Calculated 109 mg/dL (<100); Lipase 26 U/L (23-300); Potassium 4.5 mmol/L (3.4-5.1); Sodium 137 mmol/L (137-145); Total Protein 7.6 g/dL (6.3-8.2); Triglycerides 140 mg/dL (35-150)
== END ==
PROVIDERS: PCP Internal Medicine; Referring Provider Internal Medicine; Visit Provider Internal Medicine
DX: E11.9 Type 2 diabetes mellitus without complications (principal); N18.31 Chronic kidney disease, stage 3a; I10 Essential (primary) hypertension; E78.2 Mixed hyperlipidemia
CPT/HCPCS: 36415; 80053; 80061; 83036; 83690

== ENCOUNTER → 2023-06-18 15:41 | Outpatient (CLI) | payer MEDICARE, MEDICAID, SELFPAY ==
[2023-05-25 15:37] VITALS: BMI 42.3
--- NOTE | 2023-06-18 | DI.MG.S_ITS ---
BILATERAL DIGITAL SCREENING MAMMOGRAM 3D/2D WITH CAD: 06/18/2023 CLINICAL: Routine screening. Comparison is made to exams dated: 11/18/2021 mammogram, 06/28/2020 mammogram, and 01/20/2019 mammogram - [facility]. There are scattered areas of fibroglandular density in both breasts (category b / 25%-50% glandular tissue). Current study was also evaluated with a Computer Aided Detection (CAD) system. There are benign calcifications in both breasts. No significant masses, calcifications, or other findings are seen in either breast. There has been no significant interval change. IMPRESSION: BENIGN There is no mammographic evidence of malignancy. A 1 year screening mammogram is recommended. Based on the Tyrer Cuzick model (a risk assessment model) the patient's lifetime risk is 2.3% and her 10 year risk is 0.0%. According to the ACR, ACS, and NCCN guidelines, an annual breast MRI exam along with mammogram is recommended if the patient's lifetime risk is 20% or greater. This exam was interpreted at Station ID: [id number]. NOTE: For mammograms, a report in lay terms will be sent to the patient. Approximately 15% of breast malignancies will not be visualized mammographically. In the management of a palpable breast mass, a negative mammogram must not discourage biopsy of a clinically suspicious lesion. Electronically Signed By: Vic segal/leeroy:06/18/2023 19:55:55 letter sent: Normal Exam ACR BI-RADS Category 2: Benign Finding(s) [id number]
== END ==
PROVIDERS: PCP Internal Medicine; Referring Provider Internal Medicine; Visit Provider Internal Medicine
DX: Z12.31 Encounter for screening mammogram for malignant neoplasm of breast (principal)
CPT/HCPCS: 77063; 77067

== ENCOUNTER → 2023-08-16 15:45 | Outpatient (CLI) | payer MEDICARE, MEDICAID, SELFPAY ==
[2023-05-25 15:37] VITALS: BMI 42.3
[2023-08-16 18:08] LABS: BUN Creatinine Ratio 9.9 (6-22); Blood Urea Nitrogen 11 mg/dL (7-17); Calcium 9.2 mg/dL (8.4-10.2); Carbon Dioxide 22 mmol/L (22-32); Chloride 106 mmol/L (98-107); Estimated Glomerular Filt Rate 52 mL/min (>60); Glucose 108 mg/dL (80-110); HEMOLYSIS < 15 (0-50); Potassium 3.9 mmol/L (3.4-5.1); Sodium 138 mmol/L (137-145)
[2023-08-16 18:14] LABS: Hemoglobin A1C% w Est Avg Glu 6.9 % (4.0-6.0)
[2023-08-16 20:05] LABS: Creatinine Urine Random 96.6 mg/dL
[2023-08-16 20:09] LABS: Microalbumi Creatinin Ratio Ur 7.2 ug/mg CR (<30); Microalbumin Urine Random 0.7 mg/dL (0-1.6)
== END ==
PROVIDERS: PCP Internal Medicine; Referring Provider Internal Medicine; Visit Provider Internal Medicine
DX: E11.9 Type 2 diabetes mellitus without complications (principal)
CPT/HCPCS: 36415; 80048; 82043; 82570; 83036

== ENCOUNTER 2023-09-10 16:23 | Emergency (ER) | payer MEDICARE, MEDICAID, SELFPAY ==
[2023-05-25 15:37] VITALS: BMI 42.3
[2023-09-10 16:25] VITALS: BP 130/86; PULSE 43; RESP 16; TEMP 36.6; O2SAT 95; BMI 43.4
--- NOTE | 2023-09-10 16:43 | ED_ITS ---
HPI - URI/Sore Throat General Chief Complaint: Upper Respiratory Symptoms Stated Complaint: post resp inf/not going away Time Seen by Provider: 09/10/23 16:43 Source: patient Mode of arrival: Family Vehicle History of Present Illness HPI Narrative: This is a 78-year-old female presents emergency department due to vague chest congestion for the last 3 weeks. States that initially she began to develop some chest congestion, had 2 days of fevers as well as a cough. She took Mucinex which remain it would get better. She states that there is still a nagging remainder of symptoms. COVID tested during initial presentation which was negative. Denies any significant chest pain, shortness of breath. Requesting a steroid inhaler to help with the symptoms. Related Data Home Medications Medication Instructions Recorded Confirmed bimatoprost 0.01 % eye drops 1 drp EYE-BOTH DAILY 05/09/18 05/25/23 (Lumigan) cholecalciferol (vitamin D3) 50 2,000 unit PO DAILY 04/06/19 05/25/23 mcg (2,000 unit) tablet (Vitamin D3) Previous Rx's Medication Instructions Recorded insulin glargine 100 unit/mL (3 30 unit (0.3 mL) SUBCUT BID #54 mL 01/22/20 mL) subcutaneous pen (Basaglar KwikPen U-100 Insulin) hydrocortisone 2.5 % topical cream 1 applictn [place] BID-QID PRN 02/21/20 with perineal applicator hemorrhoids #30 grams (Proctosol HC) lancets #300 ea 08/27/20 lancets (OneTouch UltraSoft #300 ea 08/27/20 Lancets) indomethacin 50 mg capsule 50 mg PO TID #30 caps 06/18/21 ibuprofen 600 mg tablet 600 mg PO Q6-8H PRN fever or pain 06/04/22 #250 tabs clotrimazole-betamethasone 1 See Rx Instructions .Route 07/03/22 %-0.05 % topical cream .COMPLEX #45 grams docusate sodium 100 mg capsule 100 mg PO BID #180 caps 08/25/22 magnesium oxide 400 mg PO DAILY #90 caps 09/08/22 amlodipine 2.5 mg tablet 2.5 mg PO BID #180 tabs 01/04/23 furosemide 20 mg tablet 20 mg PO DAILY #90 tabs 01/18/23 Disabled Parking #1 ea 01/22/23 famotidine 40 mg tablet 40 mg PO DAILY #90 tabs 01/29/23 insulin glargine 100 unit/mL (3 45 unit (0.45 mL) SUBCUT BID #135 02/22/23 mL) subcutaneous pen (Lantus mL Solostar U-100 Insulin) albuterol sulfate 90 mcg/actuation 2 puff inhalation Q4H #36 grams 03/08/23 aerosol inhaler (Proventil HFA) insulin lispro 100 unit/mL See Rx Instructions SUBCUT QID #15 04/06/23 subcutaneous pen (Humalog KwikPen mL (U-100) Insulin) lisinopril 20 mg tablet 40 mg (2 x 20 mg) PO DAILY #180 04/08/23 tabs omeprazole 20 mg capsule,delayed 20 mg PO QDAY #90 caps 06/23/23 release diphenhydramine HCl 25 mg capsule 25 mg PO TID #3 caps 07/19/23 (Allergy (diphenhydramine)) GuardiCoretouch Ultra Blue Test Strips #250 ea 07/29/23 hydrocodone 5 mg-acetaminophen 325 1 - 2 tab PO Q4-6H PRN pain #90 08/18/23 mg tablet tabs atenolol 25 mg tablet 25 mg PO DAILY #90 tabs 08/23/23 pen needle, diabetic 31 gauge x #2,700 ea 09/07/23 5/16 (TRUEplus Pen Needle) simvastatin 20 mg tablet (Zocor) 20 mg PO QDAY #90 tabs 09/07/23 budesonide 0.5 mg/2 mL suspension 0.5 mg (2 mL) inhalation DAILY #60 09/10/23 for nebulization (Pulmicort) mL budesonide 90 mcg/actuation breath 1 inh inhalation BID #1 ea 09/10/23 activated powder inhaler (Pulmicort Flexhaler) Allergies Allergy/AdvReac Type Severity Reaction Status Date / Time Horse/Equine Containing Allergy Severe Difficulty Verified 05/25/23 15:08 Products Breathing iodine [IODINE] Allergy Severe hives Verified 05/25/23 15:08 ciprofloxacin [CIPROFLOXACIN] AdvReac Intermediate swelling Verified 05/25/23 15:08 of feet cyclobenzaprine AdvReac Intermediate hyperactivi Verified 05/25/23 15:08 ty tramadol [TRAMADOL] AdvReac Intermediate headache; Verified 05/25/23 15:08 swelling in feet rosuvastatin [From CRESTOR] AdvReac Mild Swelling Verified 05/25/23 15:08 in feet Review of Systems Review of Systems Narrative: GENERAL: Denies chills, fatigue, malaise, fever, sweats. HEENT: Denies sinus pain, ear pain, sore throat, difficulty swallowing, dizziness. RESPIRATORY: Reports chest congestion, Denies dyspnea, cough, wheezing, hemoptysis, sputum. CARDIOVASCULAR: Denies chest pain, palpitations, orthopnea, edema, GASTROINTESTINAL: Denies nausea, vomiting, abdominal pain, diarrhea, constipation, melena. : Denies dysuria, frequency, incontinence, hematuria, urinary retention. MUSCULOSKELETAL: denies weakness, joint pain, or bony pain SKIN: Denies rash, skin lesions, or other NEUROLOGIC: Denies weakness, headache, numbness, change in speech, confusion, seizures, incoordination. PSYCHIATRIC: No concerning psychosocial issues. 12 point review of systems is negative except for those stated above Patient History Medical History Body mass index (BMI) of 40.0 to 44.9 in adult (04/30/17) Chronic kidney disease Chronic renal failure, stage 3a COVID-19 (~12/2021) Diabetes mellitus (04/27/11) Diverticulosis of large intestine without hemorrhage (09/21/13) Essential hypertension Gastric polyp Gastroesophageal reflux disease without esophagitis (04/27/11) Glaucoma Low back pain without sciatica (05/31/15) Mild intermittent asthma without complication (04/27/11) Mixed hyperlipidemia (04/27/11) Morbid obesity (04/30/17) Pain in pelvis Pancreatic cyst Pelvic adhesions PVCs (premature ventricular contractions) Type 2 diabetes mellitus with hyperglycemia (09/24/15) Vaginal atrophy Surgical History History of appendectomy History of bilateral salpingo-oophorectomy (BSO) History of total abdominal hysterectomy Social History marital status: number of children: 2 household members: none lives independently: Yes caregiver/support person: No housing: apartment pets and animals: No education level: high school occupational status: disabled 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 HEAD: Atraumatic. Normocephalic. EYES: Pupils equal round and reactive. Extraocular motions intact. No scleral icterus. No injection or drainage. ENT: Nose without bleeding, purulent drainage. Throat without erythema, tonsillar hypertrophy or exudate. Airway patent. NECK: Trachea midline. Non tender EXTREMITIES: No edema or joint tenderness. NEURO: AOx3. SKIN: No rash or erythema of visible areas CARDIOVASCULAR: Regular rate and rhythm without murmurs, gallops, or rubs. RESPIRATORY: Clear to auscultation. Breath sounds equal bilaterally. No wheezes, rales, or rhonchi. GASTROINTESTINAL: Abdomen soft, non-tender, nondistended. BACK: Nontender without deformity or crepitance. No flank tenderness. Initial Vital Signs Initial Vital Signs: Vital Signs Temperature 97.9 F 09/10/23 16:25 Pulse Rate 43 L 09/10/23 16:25 Respiratory Rate 16 09/10/23 16:25 Blood Pressure 130/86 09/10/23 16:25 Pulse Oximetry 95 09/10/23 16:25 Oxygen Delivery Method Room Air 09/10/23 16:25 Course Orders Ordered: ED Orders 09/10/23 16:54 CXR [XR chest 2V] Stat Vital Signs Vital signs: Vital Signs - 8 hr 09/10/23 16:25 Temperature 97.9 F Pulse Rate 43 L Respiratory Rate 16 Blood Pressure 130/86 Pulse Oximetry 95 Oxygen Delivery Method Room Air MDM - URI/Sore Throat Imaging Data Chest x-ray: Radiologist's Impression: [address] [address] XRay Report Signed Patient: Vijaya Mckeon MR#: [id number] : 1945 Acct:[id number] Age/Sex: 78 / F Date of Service: 09/10/23 Loc: ED Accession Number: [id number] Procedure: XR chest 2V Ordering Provider: Moshe Wilson P.A-C PROCEDURE: XR CHEST 2V INDICATIONS: Cough x 3 weeks TECHNIQUE: 2 views of the chest were acquired. COMPARISON: [facility], CR, XR CHEST 2V, 01/15/2022, 14:13. FINDINGS: Surgical changes and devices: None. Lungs and pleura: Lungs are clear. No pleural effusions or pneumothorax. Mediastinum: Mediastinal contours are normal. Heart size is normal. Bones and chest wall: No suspicious bony abnormalities. Soft tissues appear unremarkable. IMPRESSION: No acute cardiopulmonary pathology. Dictated by: Harsh Isabel M.D. on 09/10/2023 at 17:22 Approved by: Harsh Isabel M.D. on 09/10/2023 at 17:27 MDM Narrative Medical decision making narrative: ED course: This is a 78-year-old female presents emergency department due to some continued chest congestion. Chest x-ray ordered which was negative for pneumonia. Patient declined respiratory panel. Patient is requesting a steroid inhaler as this is where for in the past. Prescribed this as well as supportive care. CC: Chest congestion Complicating co-morbidities: Diabetes Data collected from: Previous notes Medical records reviewed: Patient was seen 7 months ago due to diverticulitis. History of chronic kidney disease, chronic renal failure stage 3, COVID-19 2 years ago, type 2 diabetes. Differential considered, but not limited to: Pneumonia, URI Exam documented above, pertinent findings include: Reassuring physical exam Lab Test results independently reviewed as above. Pertinent findings: None obtained Imaging studies independently reviewed: Chest x-ray unremarkable Scores Used: None MIPS Elements: None Consultations: None Treatments: None Re-evaluations: None Discussion: Discussed plan with the patient was comfortable with the plan Diagnosis: Chest congestion Disposition: see below, along with detailed discharge instructions that have been reviewed with patient as well as indications for ED re-evaluation and additional outpatient follow up Discharge Plan Departure Patient Disposition: Home Clinical Impression: Chest congestion Activity Restrictions/Additional Instructions: Thank you for coming to the [facility] Emergency Department today. Your chest x-ray showed no evidence of pneumonia. Please use the inhaler as prescribed. Please return to the emergency department if you develop any significant shortness of breath, chest pain, or any other concerning signs or symptoms. I hope you feel better soon. Please follow up with your primary care provider within a week if your symptoms continue. If you do not have a primary care provider please contact the [facility] Resource line at [phone]. They will ask some questions about your medical history and help you get set up with a provider in the community. Prescriptions: New budesonide [Pulmicort] 0.5 mg/2 mL suspension for nebulization 0.5 mg inhalation DAILY Qty: 60 0RF Pulmicort Flexhaler 90 mcg/actuation aerosol powdr breath activated 1 inh inhalation BID Qty: 1 0RF No Action Basaglar KwikPen U-100 Insulin 100 unit/mL (3 mL) insulin pen 30 unit SUBCUT BID Qty: 54 3RF hydrocortisone [Proctosol HC] 2.5 % cream with perineal applicator 1 applictn WI BID-QID PRN (Reason: hemorrhoids) Qty: 30 1RF (DME) lancets See Rx Instructions .Route .MEDSUPPLY Qty: 300 3RF Rx Instructions: use to check blood sugar 5 times a day (DME) lancets [OneTouch UltraSoft Lancets] Misc See Rx Instructions .ROUTE .MEDSUPPLY Qty: 300 3RF Rx Instructions: Use to check blood sugars 5x a day or as directed by physician. clotrimazole-betamethasone 1-0.05 % cream See Rx Instructions .ROUTE .COMPLEX Qty: 45 3RF Dose Instruction: apply to affected area three times a day Rx Instructions: apply to affected area three times a day magnesium oxide 400 mg magnesium capsule 400 mg PO DAILY Qty: 90 3RF amlodipine 2.5 mg tablet 2.5 mg PO BID Qty: 180 3RF furosemide 20 mg tablet 20 mg PO DAILY Qty: 90 2RF famotidine 40 mg tablet 40 mg PO DAILY Qty: 90 1RF insulin glargine [Lantus Solostar U-100 Insulin] 100 unit/mL (3 mL) insulin pen 45 unit SUBCUT BID Qty: 135 3RF albuterol sulfate [Proventil HFA] 90 mcg/actuation HFA aerosol inhaler 2 puff inhalation Q4H Qty: 36 3RF insulin lispro [Humalog KwikPen Insulin] 100 unit/mL insulin pen See Rx Instructions SUBCUT QID Qty: 15 8RF Rx Instructions: SUBCUT four times daily; Inject 8-28 units subcutaneously before meals BASED ON CARB INTAKE four times a day.SUBCUT use as directed; lisinopril 20 mg tablet 40 mg PO DAILY Qty: 180 3RF omeprazole 20 mg capsule,delayed release(DR/EC) 20 mg PO QDAY Qty: 90 1RF Patient Comments: usally takes every other day diphenhydramine HCl [Allergy (diphenhydramine)] 25 mg capsule 25 mg PO TID Qty: 3 0RF Rx Instructions: take day of CT scan (DME) Prestigos Ultra Blue Test Strips Qty: 250 6RF Dose Instruction: As directed Rx Instructions: Use to test blood sugars 5x a day or as directed by PCP. hydrocodone-acetaminophen 5-325 mg tablet 1 - 2 tab PO Q4-6H PRN (Reason: pain) Qty: 90 0RF atenolol 25 mg tablet 25 mg PO DAILY Qty: 90 3RF (DME) pen needle, diabetic [TRUEplus Pen Needle] 31 gauge x 5/16 needle See Rx Instructions .ROUTE .COMPLEX Qty: 2700 3RF Dose Instruction: use five times a day as directed Rx Instructions: use five times a day as directed simvastatin [Zocor] 20 mg tablet 20 mg PO QDAY Qty: 90 3RF bimatoprost [Lumigan] 0.01 % drops 1 drp EYE-BOTH DAILY docusate sodium 100 mg capsule 100 mg PO BID Qty: 180 1RF ibuprofen 600 mg tablet 600 mg PO Q6-8H PRN (Reason: fever or pain) Qty: 250 2RF (DME) Disabled Parking See Rx Instructions .ROUTE .MEDSUPPLY Qty: 1 0RF Rx Instructions: Patient qualifies for disabled parking as per the attached form. cholecalciferol (vitamin D3) [Vitamin D3] 2,000 unit Tablet 2,000 unit PO DAILY indomethacin 50 mg capsule 50 mg PO TID Qty: 30 0RF Rx Instructions: administer with food or milk Referrals: Carlos Arrington MD [Primary Care Provider] - Stand Alone Forms: Patient Portal/API
--- NOTE | 2023-09-10 16:54 | DI.RAD.S_ITS ---
PROCEDURE: XR CHEST 2V INDICATIONS: Cough x 3 weeks TECHNIQUE: 2 views of the chest were acquired. COMPARISON: [facility], CR, XR CHEST 2V, 01/15/2022, 14:13. FINDINGS: Surgical changes and devices: None. Lungs and pleura: Lungs are clear. No pleural effusions or pneumothorax. Mediastinum: Mediastinal contours are normal. Heart size is normal. Bones and chest wall: No suspicious bony abnormalities. Soft tissues appear unremarkable. IMPRESSION: No acute cardiopulmonary pathology. Dictated by: Harsh Isabel M.D. on 09/10/2023 at 17:22 Approved by: Harsh Isabel M.D. on 09/10/2023 at 17:27
== END 2023-09-10 17:42 | disposition home or self-care (01) ==
PROVIDERS: Emergency Provider Physician Assistant Medical; PCP Internal Medicine
DX: R05.9 Cough, unspecified (principal); R09.89 Other specified symptoms and signs involving the circulatory and respiratory systems; R50.9 Fever, unspecified; Z79.899 Other long term (current) drug therapy
CPT/HCPCS: 71046; 99283

== ENCOUNTER → 2023-09-22 15:37 | Outpatient (CLI) | payer MEDICARE, MEDICAID, SELFPAY ==
[2023-05-25 15:37] VITALS: BMI 42.3
--- NOTE | 2023-09-22 16:00 | DI.CT.S_ITS ---
PROCEDURE: CT ABDOMEN PANCREATIC PROTOCOL INDICATIONS: cyst seen in December TECHNIQUE: Both before and after the administration of intravenous contrast, 3 mm thick pancreatic-phase images acquired from the diaphragm to the iliac crests. 3 mm thick coronal and sagittal reformats were performed. For radiation dose reduction, the following was used: automated exposure control, adjustment of mA and/or kV according to patient size. COMPARISON: [facility], CT, CT ABDOMEN PELVIS W CON, 01/27/2023, 15:57. FINDINGS: Image quality: Diagnostic. Lower chest: Small hiatal hernia. ABDOMEN: Pancreas: Chronic pancreatitis, with probable intraductal stone measuring 1.4 centimeters. No nodularity. Pancreatic cystic mass of the uncinate process measuring 3.6 centimeters, previously 3.2 centimeters. Liver: No solid mass. Gallbladder: Gallbladder is distended, without radiopaque stones. Biliary ducts: No biliary dilation. Adrenal Glands: No nodules. Spleen: Size is within normal limits. Kidneys and Ureters: No hydronephrosis. No solid mass. No complex renal cystic lesion which requires follow up. Hemorrhagic cyst on the superior pole of the left kidney. Stomach and Bowel: Normal colonic caliber, without significant wall thickening. Peritoneum: No abnormal intraperitoneal fluid. No free air. Ventral Wall: No hernia. Abdominal Nodes: No retroperitoneal or mesenteric adenopathy by size criteria. Vessels: Aorta and inferior vena cava are normal in size. Bones: No aggressive osseous abnormality. IMPRESSION: Chronic pancreatitis, with intraductal stone measuring 1.4 centimeters. Interval growth of the pancreatic cystic mass measuring 3.6 centimeters, previously 3.2 centimeters. Consider GI referral given size and growth. Dictated by: Felipe Lucas M.D. on 09/22/2023 at 16:59 Approved by: Felipe Lucas M.D. on 09/22/2023 at 17:04
[2023-09-22 16:06] LABS: Estimated Glomerular Filt Rate 58 mL/min (>60)
== END ==
PROVIDERS: Radiology Diagnostic Radiology; PCP Internal Medicine; Referring Provider Internal Medicine; Visit Provider Internal Medicine
DX: K86.2 Cyst of pancreas (principal); K86.1 Other chronic pancreatitis; K86.89 Other specified diseases of pancreas
CPT/HCPCS: 36415; 74170; 82565; Q9967

== ENCOUNTER → 2023-12-24 16:24 | Outpatient (CLI) | payer MEDICARE, MEDICAID, SELFPAY ==
[2023-05-25 15:37] VITALS: BMI 42.3
[2023-12-24 17:16] LABS: Hemoglobin A1C% w Est Avg Glu 6.9 % (4.0-6.0)
[2023-12-24 17:18] LABS: Alanine Aminotransferase 15 IU/L (<35); Albumin Globulin Ratio 1.4 (1.0-2.8); Alkaline Phosphatase 71 U/L (38-126); Aspartate Aminotransferase 25 IU/L (14-36); BUN Creatinine Ratio 13.5 (6-22); Bilirubin Total 0.6 mg/dL (0.2-1.3); Blood Urea Nitrogen 13 mg/dL (7-17); Calcium 8.8 mg/dL (8.4-10.2); Carbon Dioxide 24 mmol/L (22-32); Chloride 109 mmol/L (98-107); Estimated Glomerular Filt Rate > 60 mL/min (>60); Globulin 2.9 g/dL (1.7-4.1); Glucose 114 mg/dL (80-110); HEMOLYSIS < 15 (0-50); Potassium 4.3 mmol/L (3.4-5.1); Sodium 142 mmol/L (137-145); Total Protein 6.9 g/dL (6.3-8.2)
== END ==
PROVIDERS: PCP Internal Medicine; Referring Provider Internal Medicine; Visit Provider Internal Medicine
DX: I10 Essential (primary) hypertension (principal); E11.9 Type 2 diabetes mellitus without complications; E78.2 Mixed hyperlipidemia
CPT/HCPCS: 36415; 80053; 83036

== ENCOUNTER → 2024-03-24 16:01 | Outpatient (CLI) | payer MEDICARE, MEDICAID, SELFPAY ==
[2023-05-25 15:37] VITALS: BMI 42.3
[2024-03-24 16:34] LABS: Hemoglobin A1C% w Est Avg Glu 6.4 % (4.0-6.0)
[2024-03-24 16:44] LABS: Alanine Aminotransferase 14 IU/L (<35); Albumin 3.7 g/dL (3.5-5.0); Albumin Globulin Ratio 1.1 (1.0-2.8); Alkaline Phosphatase 67 U/L (38-126); Aspartate Aminotransferase 22 IU/L (14-36); BUN Creatinine Ratio 13.7 (6-22); Bilirubin Total 0.5 mg/dL (0.2-1.3); Blood Urea Nitrogen 13 mg/dL (7-17); Calcium 8.8 mg/dL (8.4-10.2); Carbon Dioxide 26 mmol/L (22-32); Chloride 106 mmol/L (98-107); Cholesterol 149 mg/dL (140-199); Estimated Glomerular Filt Rate > 60 mL/min (>60); Globulin 3.3 g/dL (1.7-4.1); Glucose 73 mg/dL (80-110); HDL Cholesterol 55 mg/dL (40-60); HEMOLYSIS < 15 (0-50); LDL Cholesterol Calculated 74 mg/dL (<100); Potassium 4.3 mmol/L (3.4-5.1); Sodium 138 mmol/L (137-145); Triglycerides 100 mg/dL (35-150)
== END ==
LOC: LAB 16:01
PROVIDERS: PCP Internal Medicine; Referring Provider Internal Medicine; Visit Provider Internal Medicine
DX: K86.1 Other chronic pancreatitis (principal); I10 Essential (primary) hypertension; E78.2 Mixed hyperlipidemia; E66.01 Morbid (severe) obesity due to excess calories
CPT/HCPCS: 36415; 80053; 80061; 83036

== ENCOUNTER 2024-04-18 12:56 | Day surgery (SDC) | payer MEDICARE, MEDICAID, SELFPAY ==
[2023-05-25 15:37] VITALS: BMI 42.3
[2024-04-18 13:52] VITALS: BP 191/73; PULSE 48; RESP 18; TEMP 37; O2SAT 97
[2024-04-18] MEDS: LACTATED RINGERS 1,000 ML 42 ML IV (13:58)
--- NOTE | 2024-04-18 14:29 | P.OP.COLON_ITS ---
Operative Date/Time/Diagnoses Date of procedure: 04/18/24 Time of procedure: 14:29 Pre-op diagnosis: Personal history of colonic polyps Procedure & Clinicians Study performed: Screening colonoscopy Same procedure as scheduled: Yes Indications: Screening Surgeon: Glen Rahman Procedure Notes Procedure in detail: The history and physical was performed/updated and the patient is ASA class is 3. The procedure was discussed in detail with the patient. Potential risks complications including infection, bleeding, missed diagnosis, perforation, need for surgery, and were explained. Their questions were answered and informed consent was obtained. Patient was brought to the procedure room and placed standard monitoring equipment. The patient's vital signs were monitored continuously throughout the entire procedure. Prior to starting time-out was performed. The patient was placed in the left lateral recumbent position. Procedural sedation was administered by anesthesia. Examination began with a thorough inspection of the perianal area there was no evidence of fissures, fistulae, external hemorrhoids or cutaneous malignancy. The colonoscopy scope was then placed into the anal canal and was advanced to the cecum, which was identified by the ileocecal valve, the appendiceal orifice and the confluence of the taenia. The scope was then slowly withdrawn examining colon thoroughly in all directions, irrigating it of any residual stool. The scope was retroflexed within the rectum The patient tolerated the procedure well. They will be discharged once criteria are met. The prep was of good/excellent quality. The withdrawl time was 7 minutes. FINDINGS * No mass or polyps * Moderate diverticulosis of distal colon Specimen(s): none sent Impression: Diverticulosis Post-procedure Recommendations: High fiber diet Plan for aftercare: No further screening colonoscopy indicated. Disposition: same day surgery
--- NOTE | 2024-04-18 14:29 | P.HP_ITS ---
History of Present Illness History of Present Illness Date Patient Seen: 04/18/24 Time Patient Seen: 14:30 Chief complaint: SDC Narrative: 79-year-old woman personal history of colonic polyps here for screening colonoscopy. Last colonoscopy 5 years ago. No family history of colon cancer. No abdominal concerns today. [facility] Medical History (Updated 04/18/24 @ 14:31 by Glen Rahman MD) Chronic pancreatitis Uncomplicated opioid dependence Pancreatic cyst Glaucoma COVID-19 (~12/2021) Chronic renal failure, stage 3a Pelvic adhesions Pain in pelvis PVCs (premature ventricular contractions) Vaginal atrophy Chronic kidney disease Gastric polyp Morbid obesity (04/30/17) Body mass index (BMI) of 40.0 to 44.9 in adult (04/30/17) Type 2 diabetes mellitus with hyperglycemia (09/24/15) Low back pain without sciatica (05/31/15) Diverticulosis of large intestine without hemorrhage (09/21/13) Essential hypertension Gastroesophageal reflux disease without esophagitis (04/27/11) Mild intermittent asthma without complication (04/27/11) Mixed hyperlipidemia (04/27/11) Diabetes mellitus (04/27/11) Surgical History History of appendectomy History of total abdominal hysterectomy History of bilateral salpingo-oophorectomy (BSO) Social History marital status: number of children: 2 household members: none lives independently: Yes caregiver/support person: No housing: apartment pets and animals: No education level: high school occupational status: disabled 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 activities: games and reading Smoking Status: Never smoker Tobacco: How many years used: 0 quit status: quit date established second hand exposure: Yes (Childhood) alcohol intake: former substance use type: does not use Meds Home Medications and Allergies Home Medications Medication Instructions Recorded Confirmed Type bimatoprost 0.01 % eye drops 1 drp EYE-BOTH DAILY 05/09/18 03/27/24 History (Lumigan) cholecalciferol (vitamin D3) 50 2,000 unit PO DAILY 04/06/19 03/27/24 History mcg (2,000 unit) tablet (Vitamin D3) hydrocortisone 2.5 % topical cream 1 applictn RI BID-QID PRN 02/21/20 03/27/24 Rx with perineal applicator hemorrhoids #30 grams (Proctosol HC) lancets #300 ea 08/27/20 03/27/24 Rx ibuprofen 600 mg tablet 600 mg PO Q6-8H PRN fever or pain 06/04/22 04/18/24 Rx #250 tabs docusate sodium 100 mg capsule 100 mg PO BID #180 caps 08/25/22 04/18/24 Rx magnesium oxide 400 mg PO DAILY #90 caps 09/08/22 04/18/24 Rx Disabled Parking #1 ea 01/22/23 03/27/24 Rx albuterol sulfate 90 mcg/actuation 2 puff inhalation Q4H #36 grams 03/08/23 04/18/24 Rx aerosol inhaler (Proventil HFA) Onetouch Ultra Blue Test Strips #250 ea 07/29/23 03/27/24 Rx atenolol 25 mg tablet 25 mg PO DAILY #90 tabs 08/23/23 04/18/24 Rx pen needle, diabetic 31 gauge x #2,700 ea 09/07/23 03/27/24 Rx 5/16 (TRUEplus Pen Needle) simvastatin 20 mg tablet (Zocor) 20 mg PO QDAY #90 tabs 09/07/23 04/18/24 Rx famotidine 40 mg tablet 40 mg PO DAILY #90 tabs 09/23/23 04/18/24 Rx furosemide 20 mg tablet 20 mg PO DAILY #90 tabs 10/12/23 04/18/24 Rx clotrimazole-betamethasone 1 See Rx Instructions .Route 10/28/23 03/27/24 Rx %-0.05 % topical cream .COMPLEX #45 grams lancets #300 ea 11/15/23 03/27/24 Rx amlodipine 2.5 mg tablet 2.5 mg PO BID #180 tabs 01/19/24 04/18/24 Rx omeprazole 20 mg capsule,delayed 20 mg PO QDAY #90 caps 02/21/24 04/18/24 Rx release insulin glargine 100 unit/mL (3 45 unit (0.45 mL) SUBCUT BID #135 03/07/24 04/18/24 Rx mL) subcutaneous pen (Lantus mL Solostar U-100 Insulin) insulin lispro 100 unit/mL 8 - 28 unit (0.08 - 0.28 mL) 03/24/24 04/18/24 Rx subcutaneous pen SUBCUT 4XD #90 mL hydrocodone 5 mg-acetaminophen 325 1 - 2 tab PO Q4-6H PRN pain #90 03/27/24 04/18/24 Rx mg tablet tabs lisinopril 20 mg tablet 40 mg (2 x 20 mg) PO DAILY #180 04/17/24 04/18/24 Rx tabs Allergies Allergy/AdvReac Type Severity Reaction Status Date / Time Horse/Equine Containing Allergy Severe Difficulty Verified 04/18/24 13:41 Products Breathing iodine [IODINE] Allergy Severe hives Verified 04/18/24 13:41 ciprofloxacin [CIPROFLOXACIN] AdvReac Intermediate swelling Verified 04/18/24 13:41 of feet cyclobenzaprine AdvReac Intermediate hyperactivi Verified 04/18/24 13:41 ty tramadol [TRAMADOL] AdvReac Intermediate headache; Verified 04/18/24 13:41 swelling in feet rosuvastatin [From CRESTOR] AdvReac Mild Swelling Verified 04/18/24 13:41 in feet Exam Vital Signs (past 8 hours): - 04/18/24 13:52 Temperature 98.6 F Pulse Rate 48 L Respiratory Rate 18 Blood Pressure 191/73 H Pulse Oximetry 97 Oxygen Delivery Method Room Air Oxygen Delivery Method Room Air Narrative Exam Narrative: General adult woman alert oriented no acute distress Chest nonlabored respiration Extremities warm well perfused Assessment & Plan Assessment and plan (1) Personal history of colonic polyps: Status: Acute Assessment & Plan narrative: The patient requires colorectal screening and colonoscopy is recommended. Technical details were discussed. Risks, benefits, alternatives explained. Risks including but not limited to myocardial infarction, aspiration, bleeding, pain, missed lesion, incomplete examination, need for further radiographic studies, intestinal injury, and need for major abdominal surgery were discussed. All questions were answered to their satisfaction, and they are in agreement with this plan. Time-Based Coding :: [TOTAL MINUTES] spent with patient and on the chart (including review of chart, obtaining history, exam, reviewing outside data, placing orders, documenting exam and treatment plan, and counseling patient) on [DATE].
[2024-04-18 14:52] VITALS: BP 107/46; PULSE 53; RESP 20; TEMP 36.3; O2SAT 98
[2024-04-18 14:58] VITALS: BP 144/55; PULSE 51; RESP 21; O2SAT 97
[2024-04-18 15:01] VITALS: BP 153/58; PULSE 48; RESP 19; TEMP 36.4; O2SAT 97
== END 2024-04-18 15:11 | disposition home or self-care (01) ==
PROVIDERS: PCP Internal Medicine; Referring Provider Surgery; Visit Provider Surgery
PROC: 0DJD8ZZ Inspection of Lower Intestinal Tract, Via Natural or Artificial Opening Endoscopic (ICD-10-PCS; CPT 45378; principal; 2024-04-18 14:15)
DX: Z12.11 Encounter for screening for malignant neoplasm of colon (principal); Z86.010 Personal history of colon polyps; K57.30 Diverticulosis of large intestine without perforation or abscess without bleeding
CPT/HCPCS: G0105; J2704

== ENCOUNTER → 2024-06-22 15:49 | Outpatient (CLI) | payer MEDICARE, MEDICAID, SELFPAY ==
[2023-05-25 15:37] VITALS: BMI 42.3
[2024-06-22 16:59] LABS: Hemoglobin A1C% w Est Avg Glu 7.2 % (4.0-6.0)
[2024-06-22 17:02] LABS: BUN Creatinine Ratio 21.6 (6-22); Blood Urea Nitrogen 24 mg/dL (7-17); Calcium 9.4 mg/dL (8.4-10.2); Carbon Dioxide 24 mmol/L (22-32); Chloride 105 mmol/L (98-107); Estimated Glomerular Filt Rate 51 mL/min (>60); Glucose 124 mg/dL (80-110); HEMOLYSIS < 15 (0-50); Potassium 4.3 mmol/L (3.4-5.1); Sodium 139 mmol/L (137-145)
== END ==
LOC: LAB 15:50
PROVIDERS: PCP Internal Medicine; Referring Provider Internal Medicine; Visit Provider Internal Medicine
DX: E13.8 Other specified diabetes mellitus with unspecified complications (principal); Z79.4 Long term (current) use of insulin
CPT/HCPCS: 36415; 80048; 83036

== ENCOUNTER → 2024-09-18 15:04 | Outpatient (CLI) | payer MEDICARE, MEDICAID, SELFPAY ==
[2023-05-25 15:37] VITALS: BMI 42.3
[2024-09-18 16:31] LABS: Alanine Aminotransferase 20 IU/L (<35); Albumin 3.9 g/dL (3.5-5.0); Albumin Globulin Ratio 1.1 (1.0-2.8); Alkaline Phosphatase 72 U/L (38-126); Aspartate Aminotransferase 29 IU/L (14-36); BUN Creatinine Ratio 13.4 (6-22); Bilirubin Total 0.4 mg/dL (0.2-1.3); Blood Urea Nitrogen 13 mg/dL (7-17); Calcium 8.9 mg/dL (8.4-10.2); Carbon Dioxide 28 mmol/L (22-32); Chloride 107 mmol/L (98-107); Estimated Glomerular Filt Rate > 60 mL/min (>60); Globulin 3.4 g/dL (1.7-4.1); Glucose 107 mg/dL (80-110); HEMOLYSIS < 15 (0-50); Sodium 140 mmol/L (137-145); Total Protein 7.3 g/dL (6.3-8.2)
[2024-09-18 16:34] LABS: Hemoglobin A1C% w Est Avg Glu 6.7 % (4.0-6.0)
== END ==
PROVIDERS: PCP Internal Medicine; Referring Provider Internal Medicine; Visit Provider Internal Medicine
DX: E11.9 Type 2 diabetes mellitus without complications (principal); N18.31 Chronic kidney disease, stage 3a
CPT/HCPCS: 36415; 80053; 83036

== ENCOUNTER → 2024-10-20 15:02 | Outpatient (CLI) | payer MEDICARE, MEDICAID, SELFPAY ==
[2023-05-25 15:37] VITALS: BMI 42.3
--- NOTE | 2024-10-20 15:04 | DI.MG.S_ITS ---
MM screening mammo BI: 10/20/2024. BI-RADS: 2 CLINICAL: 79-year old female for bilateral screening mammogram. Tyrer-Cuzick lifetime risk of 2.2%. No personal or first-degree family history of breast cancer. PRIOR EXAMS 06/18/2023, 11/18/2021, 06/28/2020. MAMMOGRAPHY TECHNIQUE: 2D and 3D (tomosynthesis) digital mammographic views obtained, with additional images as needed for full coverage. Current study was also evaluated with a Computer Aided Detection (CAD) system. DENSITY B. There are scattered areas of fibroglandular density. MAMMOGRAPHY FINDINGS Bilateral: Benign-appearing calcifications noted. There are no suspicious masses, calcifications, or other findings in the breast. No significant change from comparison. IMPRESSION: * No evidence of malignancy with benign findings. RECOMMENDATIONS Bilateral * Annual screening mammography. OVERALL ASSESSMENT CATEGORY BI-RADS-2: Benign. The [employer] recommends annual screening mammography beginning at age 40 for women with average risk of breast cancer. ELECTRONICALLY SIGNED: Franck Perdomo M.D. on 10/20/2024 at 04:06:43 PM PT Interpreting Station ID: [id number]
== END ==
PROVIDERS: PCP Internal Medicine; Referring Provider Internal Medicine; Visit Provider Internal Medicine
DX: Z12.31 Encounter for screening mammogram for malignant neoplasm of breast (principal)
CPT/HCPCS: 77063; 77067

== ENCOUNTER → 2024-12-29 17:18 | Outpatient (CLI) | payer MEDICARE, MEDICAID, SELFPAY ==
[2023-05-25 15:37] VITALS: BMI 42.3
[2024-12-29 17:47] LABS: Add Manual Diff / Slide Review NO; Basophils Absolute Auto 100 /uL (0-100); Basophils Percent Auto 0.6 % (0-2); Eosinophils Absolute Auto 300 /uL (0-450); Eosinophils Percent Auto 2.2 % (2-4); Hemoglobin 11.2 g/dL (12.0-16.0); Lymphocytes Absolute Auto 3700 /uL (1100-4500); Lymphocytes Percent Auto 27.3 % (25-40); Mean Corpuscular HGB Conc 32.9 % (30-36); Mean Corpuscular Hemoglobin 28.9 PG (26-34); Mean Corpuscular Volume 87.9 fL (80-100); Monocytes Absolute Auto 700 /uL (0-900); Monocytes Percent Auto 4.9 % (3-14); Neutrophils Absolute Auto 8900 /uL (1500-7000); Platelet Count 312 X10^3/uL (150-400); Red Blood Cell Count 3.87 X10^6/uL (4.0-5.2); Red Cell Distribution Width 13.9 % (11.6-14.8); White Blood Cell Count 13.7 X10^3/uL (4.5-11.0)
[2024-12-29 18:02] LABS: Alanine Aminotransferase 21 IU/L (<35); Albumin 4.2 g/dL (3.5-5.0); Albumin Globulin Ratio 1.1 (1.0-2.8); Alkaline Phosphatase 78 U/L (38-126); Aspartate Aminotransferase 24 IU/L (14-36); Bilirubin Total 0.6 mg/dL (0.2-1.3); Blood Urea Nitrogen 19 mg/dL (7-17); C-Reactive Protein Quant 1.3 mg/dL (<1.0); Calcium 9.3 mg/dL (8.4-10.2); Carbon Dioxide 17 mmol/L (22-32); Chloride 108 mmol/L (98-107); Estimated Glomerular Filt Rate 51 mL/min (>60); Globulin 3.7 g/dL (1.7-4.1); Glucose 133 mg/dL (70-99); HEMOLYSIS < 15 (0-50); Lipase 16 U/L (23-300); Magnesium 1.4 mg/dL (1.6-2.3); Potassium 4.3 mmol/L (3.4-5.1); Sodium 137 mmol/L (137-145); Total Protein 7.9 g/dL (6.3-8.2); Uric Acid 8.9 mg/dL (2.5-6.2)
[2024-12-29 18:30] LABS: TSH w/ Reflex to FT4 2.43 uIU/mL (0.47-4.68)
== END ==
PROVIDERS: PCP Internal Medicine; Referring Provider Internal Medicine; Visit Provider Internal Medicine
DX: I10 Essential (primary) hypertension (principal); N18.31 Chronic kidney disease, stage 3a; K86.1 Other chronic pancreatitis; E03.9 Hypothyroidism, unspecified; M10.9 Gout, unspecified
CPT/HCPCS: 36415; 80053; 83690; 83735; 84443; 84550; 85025; 86140

== ENCOUNTER → 2025-01-16 14:52 | Outpatient (CLI) | payer MEDICARE, MEDICAID, SELFPAY ==
[2023-05-25 15:37] VITALS: BMI 42.3
--- NOTE | 2025-01-16 14:53 | DI.RAD.S_ITS ---
PROCEDURE: XR ACUTE ABDOMEN SERIES INDICATIONS: diarrhea TECHNIQUE: One view chest and two views of the abdomen were acquired. COMPARISON: [facility], , XR ACUTE ABDOMEN SERIES, 01/22/2023, 11:35. FINDINGS: Stool gas pattern: Normal-no evidence of ileus or obstruction. No free intraperitoneal or extraperitoneal air. No gross evidence of ascites Soft tissues: Multiple small calcifications are seen in the expected location of the distal pancreatic body. This is also noted on previous exam. Suspect chronic pancreatitis Organs: No gross evidence for organomegaly. IMPRESSION: Multiple calcification expected location of the distal pancreatic body. Suspect chronic pancreatitis. Consider CT for more specific evaluation Dictated by: Carlos Ornelas M.D. on 01/17/2025 at 12:11 Approved by: Carlos Ornelas M.D. on 01/17/2025 at 12:12
== END ==
PROVIDERS: PCP Internal Medicine; Referring Provider Internal Medicine; Visit Provider Internal Medicine
DX: K86.89 Other specified diseases of pancreas (principal); R19.7 Diarrhea, unspecified
CPT/HCPCS: 74022

== ENCOUNTER → 2025-03-09 14:37 | Outpatient (CLI) | payer MEDICARE, MEDICAID, SELFPAY ==
[2023-05-25 15:37] VITALS: BMI 42.3
[2025-03-09 18:26] LABS: Hemoglobin A1C% w Est Avg Glu 7.3 % (4.0-6.0)
[2025-03-09 21:27] LABS: Alanine Aminotransferase 17 IU/L (<35); Albumin 3.7 g/dL (3.5-5.0); Albumin Globulin Ratio 1.2 (1.0-2.8); Alkaline Phosphatase 80 U/L (38-126); Blood Urea Nitrogen 17 mg/dL (7-17); Calcium 9.0 mg/dL (8.4-10.2); Carbon Dioxide 21 mmol/L (22-32); Chloride 109 mmol/L (98-107); Cholesterol 162 mg/dL (140-199); Estimated Glomerular Filt Rate 59 mL/min (>60); Globulin 3.2 g/dL (1.7-4.1); Glucose 102 mg/dL (70-99); HDL Cholesterol 51 mg/dL (40-60); HEMOLYSIS < 15 (0-50); Potassium 3.8 mmol/L (3.4-5.1); Sodium 141 mmol/L (137-145); Total Protein 6.9 g/dL (6.3-8.2); Triglycerides 157 mg/dL (35-150)
== END ==
PROVIDERS: PCP Internal Medicine; Referring Provider Internal Medicine; Visit Provider Internal Medicine
DX: E11.9 Type 2 diabetes mellitus without complications (principal); E78.2 Mixed hyperlipidemia; I10 Essential (primary) hypertension; M10.9 Gout, unspecified; E03.9 Hypothyroidism, unspecified
CPT/HCPCS: 36415; 80053; 80061; 83036

== ENCOUNTER → 2025-05-29 16:59 | Outpatient (CLI) | payer MEDICARE, MEDICAID, SELFPAY ==
[2023-05-25 15:37] VITALS: BMI 42.3
[2025-05-29 17:43] LABS: Blood Urea Nitrogen 22 mg/dL (7-17); Calcium 9.3 mg/dL (8.4-10.2); Carbon Dioxide 28 mmol/L (22-32); Chloride 104 mmol/L (98-107); Estimated Glomerular Filt Rate 44 mL/min (>60); Glucose 85 mg/dL (70-99); HEMOLYSIS < 15 (0-50); Potassium 4.5 mmol/L (3.4-5.1); Sodium 140 mmol/L (137-145)
[2025-05-29 17:44] LABS: Hemoglobin A1C% w Est Avg Glu 7.1 % (4.0-6.0)
[2025-05-29 17:49] LABS: Microalbumi Creatinin Ratio Ur 18.0 ug/mg CR (<30)
== END ==
PROVIDERS: PCP Internal Medicine; Referring Provider Internal Medicine; Visit Provider Internal Medicine
DX: E13.8 Other specified diabetes mellitus with unspecified complications (principal); I10 Essential (primary) hypertension; Z79.4 Long term (current) use of insulin
CPT/HCPCS: 36415; 80048; 82043; 82570; 83036

== ENCOUNTER 2025-06-19 16:27 | Emergency (ER) | payer MEDICARE, MEDICAID, SELFPAY ==
[2025-06-01 15:56] VITALS: BMI 42.3
[2025-06-19] VITALS (20 sets, daily range): BP systolic 121–195; BP diastolic 55–93; PULSE 41–63; RESP 10–26; TEMP 37.1; O2SAT 91–100
--- NOTE | 2025-06-19 16:55 | EKG_ITS ---
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
--- NOTE | 2025-06-19 17:48 | DI.RAD.S_ITS ---
PROCEDURE: XR CHEST 1V INDICATIONS: Chest Pain TECHNIQUE: One view of the chest was acquired. COMPARISON: [facility], CR, XR CHEST 2V, 09/10/2023, 16:58. [facility], CR, XR CHEST 2V, 01/15/2022, 14:13. FINDINGS: Surgical changes and devices: None. Lungs and pleura: Lungs are clear. No pleural effusions or pneumothorax. Mediastinum: Mediastinal contours appear normal. Heart size is at the upper limits of normal. Bones and chest wall: No suspicious bony lesions. Overlying soft tissues appear unremarkable. IMPRESSION: No acute cardiopulmonary abnormality is seen. Dictated by: Jamie Yusuf M.D. on 06/19/2025 at 18:06 Approved by: Jamie Yusuf M.D. on 06/19/2025 at 18:07
--- NOTE | 2025-06-19 17:48 | EKG_ITS ---
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
[2025-06-19 17:59] LABS: INR 1.0 (0.9-1.3); Prothrombin Time 11.3 SECONDS (9.4-12.5)
[2025-06-19 18:00] LABS: Add Manual Diff / Slide Review NO; Hematocrit 35.3 % (36-46); Hemoglobin 11.5 g/dL (12.0-16.0); Lymphocytes Absolute Auto 3900 /uL (1100-4500); Mean Corpuscular HGB Conc 32.5 % (30-36); Mean Corpuscular Hemoglobin 29.0 PG (26-34); Mean Corpuscular Volume 89.1 fL (80-100); Platelet Count 319 X10^3/uL (150-400)
[2025-06-19 18:02] LABS: PTT Partial Thromboplastin Tim 30 SECONDS (25.1-36.5)
[2025-06-19 18:05] LABS: Alanine Aminotransferase 18 IU/L (<35); Albumin 4.4 g/dL (3.5-5.0); Albumin Globulin Ratio 1.2 (1.0-2.8); Alkaline Phosphatase 79 U/L (38-126); Blood Urea Nitrogen 24 mg/dL (7-17); Calcium 9.2 mg/dL (8.4-10.2); Carbon Dioxide 24 mmol/L (22-32); Chloride 104 mmol/L (98-107); Creatine Kinase 119 U/L (30-135); Estimated Glomerular Filt Rate 48 mL/min (>60); Globulin 3.6 g/dL (1.7-4.1); Glucose 134 mg/dL (70-99); HEMOLYSIS 23 (0-50); Lipase 14 U/L (23-300); Magnesium 1.7 mg/dL (1.6-2.3); Potassium 4.0 mmol/L (3.4-5.1); Sodium 139 mmol/L (137-145); Total Protein 8.0 g/dL (6.3-8.2)
[2025-06-19 18:16] LABS: NT-proBNP (BNP-Adult 18+) 182 pg/mL (<450); Troponin I 0.015 ng/mL (0.01-0.034)
--- NOTE | 2025-06-19 20:32 | ED.CHESTPAIN ---
HPI - Chest Pain General Chief Complaint: Chest Pain Stated Complaint: weakness/ loss of appetite/pcv Time Seen by Provider: 06/19/25 20:31 Source: patient, RN notes reviewed and old records reviewed Mode of arrival: Ambulatory Limitations: no limitations Limitations: no limitations History of Present Illness HPI narrative: 80-year-old female history of bradycardia, hypertension, dyslipidemia, diabetes type 2, CKD stage IIIA, GERD, asthma, known pancreatic cyst who presents with complaints of feeling weak since Wednesday. She states Wednesday she felt a lot of extra beats or PVC she checked with her blood pressure cuff her blood pressure was not low but did not note that she has been frequent PVC she has has a less throughout Wednesday and Wednesday. She denies any chest pain or pressure, denies any shortness of breath she states Wednesday night she felt like when she has had low blood sugar but checked her sugar and it was appropriate. She notes little bit of chills but no fevers. No cold cough or congestion symptoms. No nausea or vomiting. She denies any issues with bowel movements, no changes to urination no dysuria urgency or frequency. No swelling of her extremities. No syncope. She states no new medication changes she notes her heart rate runs in the 40s at baseline she is on atenolol longstanding for frequent PVCs. Related Data Home Medications ?Medication ?Instructions ?Recorded ?Confirmed bimatoprost 0.01 % eye drops 1 drp EYE-BOTH DAILY 05/09/18 06/01/25 (Lumigan) cholecalciferol (vitamin D3) 50 2,000 unit PO DAILY 04/06/19 06/01/25 mcg (2,000 unit) tablet (Vitamin D3) Previous Rx's ?Medication ?Instructions ?Recorded hydrocortisone 2.5 % topical cream 1 applictn VA BID-QID PRN 02/21/20 with perineal applicator hemorrhoids #30 grams (Proctosol HC) lancets #300 ea 08/27/20 magnesium oxide 400 mg PO DAILY #90 caps 09/08/22 Disabled Parking #1 ea 01/22/23 docusate sodium 100 mg capsule 100 mg PO BID #180 caps 06/26/24 atenolol 25 mg tablet 25 mg PO DAILY #90 tabs 08/09/24 lancets #300 ea 08/10/24 omeprazole 20 mg capsule,delayed 20 mg PO QDAY #90 caps 08/17/24 release ibuprofen 600 mg tablet 600 mg PO Q6-8H PRN fever or pain 08/30/24 #250 tabs insulin glargine 100 unit/mL (3 45 unit (0.45 mL) SUBCUT BID #135 09/19/24 mL) subcutaneous pen (Lantus mL Solostar U-100 Insulin) insulin lispro 100 unit/mL 8 - 28 unit (0.08 - 0.28 mL) 09/19/24 subcutaneous pen SUBCUT 4XD #90 mL simvastatin 20 mg tablet (Zocor) 20 mg PO QDAY #90 tabs 11/01/24 Onetouch Ultra Blue Test Strips #250 ea 11/06/24 amlodipine 2.5 mg tablet 2.5 mg PO BID #180 tabs 01/17/25 famotidine 40 mg tablet 40 mg PO DAILY #90 tabs 03/12/25 lisinopril 20 mg tablet 40 mg (2 x 20 mg) PO DAILY #180 04/04/25 tabs pen needle, diabetic 31 gauge x #2,700 ea 05/04/2512/15 (TRUEplus Pen Needle) albuterol sulfate 90 mcg/actuation 2 puff inhalation Q4H #36 grams 06/01/25 aerosol inhaler clotrimazole-betamethasone 1 See Rx Instructions .Route 06/01/25 %-0.05 % topical cream .COMPLEX #45 grams furosemide 20 mg tablet 20 mg PO DAILY #90 tabs 06/01/25 hydrocodone 5 mg-acetaminophen 325 1 - 2 tab PO Q4-6H PRN pain #90 06/01/25 mg tablet tabs hydrocodone 5 mg-acetaminophen 325 1 - 2 tab PO Q4H PRN pain #90 tabs 06/01/25 mg tablet hydrocodone 5 mg-acetaminophen 325 1 tab PO Q4H PRN pain #90 tabs 06/01/25 mg tablet Allergies Allergy/AdvReac Type Severity Reaction Status Date / Time Horse/Equine Containing Allergy Severe Difficulty Verified 06/19/25 16:55 Products Breathing iodine (IODINE) Allergy Severe hives Verified 06/19/25 16:55 ciprofloxacin (CIPROFLOXACIN) AdvReac Intermediate swelling Verified 06/19/25 16:55 of feet cyclobenzaprine AdvReac Intermediate hyperactivi Verified 06/19/25 16:55 ty tramadol (TRAMADOL) AdvReac Intermediate headache; Verified 06/19/25 16:55 swelling in feet rosuvastatin (From CRESTOR) AdvReac Mild Swelling Verified 06/19/25 16:55 in feet Review of Systems Review of Systems ROS Unobtainable: All systems reviewed & are unremarkable except as noted in HPI and below Patient History Medical History Chronic pancreatitis Uncomplicated opioid dependence Pancreatic cyst Glaucoma COVID-19 (~12/2021) Chronic renal failure, stage 3a Pelvic adhesions Pain in pelvis PVCs (premature ventricular contractions) Vaginal atrophy Chronic kidney disease Gastric polyp Morbid obesity (04/30/17) Body mass index (BMI) of 40.0 to 44.9 in adult (04/30/17) Type 2 diabetes mellitus with hyperglycemia (09/24/15) Low back pain without sciatica (05/31/15) Diverticulosis of large intestine without hemorrhage (09/21/13) Essential hypertension Gastroesophageal reflux disease without esophagitis (04/27/11) Mild intermittent asthma without complication (04/27/11) Mixed hyperlipidemia (04/27/11) Diabetes mellitus (04/27/11) Surgical History History of appendectomy History of total abdominal hysterectomy History of bilateral salpingo-oophorectomy (BSO) Social History marital status: number of children: 2 household members: none lives independently: Yes caregiver/support person: No housing: apartment pets and animals: No education level: high school occupational status: disabled 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 Patient is obese HEENT: Head normocephalic, atraumatic, EOMI, pupils reactive, face symmetric, moist mucous membranes NECK: Supple, full range of motion CARDIOVASCULAR: Regular rate and rhythm without murmurs, rubs or gallops. No JVD appreciated. No edema bilateral lower extremities. RESPIRATORY: Breath sounds equal bilaterally, no wheezes rales or rhonchi. No tachypnea or accessory muscle use ABDOMEN: Soft, nontender. Normoactive bowel sounds all 4 quadrants. No guarding or rebound, rigidity, no mass : No CVA tenderness EXTREMITIES: Normal range of motion, no clubbing or edema. Neurovascularly intact NEUROLOGICAL: Cranial nerves II through XII grossly intact. Moving all extremities SKIN: Warm, dry, no petechiae, no rashes or lesions. Initial Vital Signs Initial Vital Signs: Vital Signs Temperature 98.7 F 06/19/25 17:00 Pulse Rate 47 L 06/19/25 17:00 Respiratory Rate 18 06/19/25 17:00 Blood Pressure 195/86 H 06/19/25 17:00 Pulse Oximetry 100 06/19/25 17:00 Oxygen Delivery Method Room Air 06/19/25 17:00 Course Orders Ordered: ED Orders 06/19/25 16:55 EKG-12 Lead Stat 06/19/25 17:15 Complete Blood Count AUTO DIFF Stat Comprehensive Metabolic Panel Stat Lipase Stat Magnesium Stat NT-proBNP (BNP-Adult 18+) Stat PTT Partial Thromboplastin Nicola Stat Prothrombin Time INR Stat Troponin & CK Cardiac Panel Stat 06/19/25 17:48 XR chest 1V Stat EKG-12 Lead Stat 06/19/25 20:36 EKG-12 Lead Stat 06/19/25 20:57 Covid-19 + FLU A/B + RSV - PCR Stat 06/19/25 21:14 Trop I [Troponin I] Stat Discontinued Medications Aspirin (Aspirin 81 Mg Chew Tab) 324 mg PO NOW ONE Stop: 06/19/25 17:49 Last Admin: 06/19/25 20:47 Dose: Not Given Documented By: [facility] Vital Signs Vital signs: Vital Signs - 8 hr 06/19/25 17:00 06/19/25 17:11 06/19/25 17:12 Temperature 98.7 F Pulse Rate 47 L 44 L Respiratory Rate 18 Blood Pressure 195/86 H 186/79 H Pulse Oximetry 100 98 Oxygen Delivery Method Room Air 06/19/25 17:12 06/19/25 17:30 06/19/25 17:31 Temperature Pulse Rate 44 L 41 L Respiratory Rate 19 Blood Pressure 147/62 H Pulse Oximetry 98 98 Oxygen Delivery Method 06/19/25 17:31 06/19/25 18:04 06/19/25 18:06 Temperature Pulse Rate 41 L 63 52 L Respiratory Rate 17 21 Blood Pressure Pulse Oximetry 98 91 99 Oxygen Delivery Method 06/19/25 18:06 06/19/25 18:30 06/19/25 18:31 Temperature Pulse Rate 41 L Respiratory Rate 21 Blood Pressure 162/66 H 189/77 H Pulse Oximetry 96 Oxygen Delivery Method 06/19/25 18:31 06/19/25 19:00 06/19/25 19:01 Temperature Pulse Rate 41 L 47 L Respiratory Rate 25 H 17 Blood Pressure 153/63 H Pulse Oximetry 96 97 Oxygen Delivery Method 06/19/25 19:01 06/19/25 19:30 06/19/25 19:31 Temperature Pulse Rate 44 L 44 L 44 L Respiratory Rate 20 25 H 24 Blood Pressure Pulse Oximetry 98 99 99 Oxygen Delivery Method 06/19/25 19:31 06/19/25 20:00 06/19/25 20:02 Temperature Pulse Rate 44 L Respiratory Rate 26 H Blood Pressure 162/70 H 155/65 H Pulse Oximetry 99 Oxygen Delivery Method 06/19/25 20:02 06/19/25 21:46 06/19/25 21:47 Temperature Pulse Rate 44 L 43 L Respiratory Rate 25 H 10 L Blood Pressure 121/55 L Pulse Oximetry 100 98 Oxygen Delivery Method 06/19/25 21:47 06/19/25 22:00 06/19/25 22:01 Temperature Pulse Rate 43 L 43 L Respiratory Rate 15 19 Blood Pressure 168/93 H Pulse Oximetry 98 98 Oxygen Delivery Method Room Air 06/19/25 22:01 06/19/25 22:30 06/19/25 22:30 Temperature Pulse Rate 43 L 45 L Respiratory Rate 24 24 Blood Pressure 195/81 H Pulse Oximetry 98 98 Oxygen Delivery Method Room Air MDM - Chest Pain Lab Data 06/19/25 17:15 06/19/25 17:15 Labs: Lab Results 06/19/25 06/19/25 06/19/25 Range/Units 17:15 20:57 21:14 WBC 15.7 H (4.5-11.0) X10^3/uL RBC 3.96 L (4.0-5.2) X10^6/uL Hgb 11.5 L (12.0-16.0) g/dL Hct 35.3 L (36-46) % MCV 89.1 (80-100) fL MCH 29.0 (26-34) PG MCHC 32.5 (30-36) % RDW 13.5 (11.6-14.8) % Plt Count 319 (150-400) X10^3/uL Neut % (Auto) 69.7 (50-75) % Lymph % (Auto) 24.7 L (25-40) % [place] % (Auto) 4.3 (3-14) % Eos % (Auto) 0.8 L (2-4) % Baso % (Auto) 0.5 (0-2) % Neut # (Auto) 02558 H (0901-1559) /uL Lymph # (Auto) 3900 (9373-5741) /uL [place] # (Auto) 700 (0-900) /uL Eos # (Auto) 100 (0-450) /uL Baso # (Auto) 100 (0-100) /uL PT 11.3 (9.4-12.5) SECONDS INR 1.0 (0.9-1.3) APTT 30 (25.1-36.5) SECONDS Sodium 139 (137-145) mmol/L Potassium 4.0 (3.4-5.1) mmol/L Chloride 104 (98-107) mmol/L Carbon Dioxide 24 (22-32) mmol/L BUN 24 H (7-17) mg/dL Creatinine 1.16 H (0.52-1.04) mg/dL Estimated GFR 48 L (>60) mL/min BUN/Creatinine Ratio 20.7 (6-22) Glucose 134 H (70-99) mg/dL Calcium 9.2 (8.4-10.2) mg/dL Magnesium 1.7 (1.6-2.3) mg/dL Total Bilirubin 0.7 (0.2-1.3) mg/dL AST 30 (14-36) IU/L ALT 18 (<35) IU/L Alkaline Phosphatase 79 (38-126) U/L Total Creatine Kinase 119 (30-135) U/L Troponin I 0.015 0.017 (0.01-0.034) ng/mL NT-Pro-B Natriuret Pep 182 (<450) pg/mL Total Protein 8.0 (6.3-8.2) g/dL Albumin 4.4 (3.5-5.0) g/dL Globulin 3.6 (1.7-4.1) g/dL Albumin/Globulin Ratio 1.2 (1.0-2.8) Lipase 14 L (23-300) U/L SARS-CoV-2 (PCR) Negative (Negative) Influenza A (RT-PCR) Flu a negative (NEGATIVE) Influenza B (RT-PCR) Flu b negative (NEGATIVE) RSV (PCR) Negative (Negative) MDM Narrative Medical decision making narrative: Sinus bradycardia rate of 42 VA 168 QRS 84 QTC 397, no acute ST-elevation. T-waves inverted in V1 V2. Patient has prior from 05/04/2018 which appears similar with sinus bradycardia rate of [address] segments. Repeat EKG here in the department shows marked sinus bradycardia with a rate of 44, VA 168 QRS 86 QTC of 403, EKG appears similar to prior earlier today. Labs show white count 15.7 patient has been a elevated since June 2021 hemoglobin is 11.5 appears consistent with priors into 2020, platelets are 319. INR and PTT are normal, creatinine is 1.16 improved from May 29 which was 1.26, BUN is 24 electrolytes are appropriate glucose is 134 LFTs are normal, I total CK is 119, troponin 0.015. BNP is 182. Lipase is 14. Repeat troponin is 0.017 Chest x-ray shows no acute cardiopulmonary abnormality COVID/influenza/RSV is negative Patient describes feeling generally weak and frequent PVCs on Wednesday although this is improved. No chest pain or shortness of breath. She has felt appropriate for discharge home she is bradycardic but at her normal base line heart rate. Discharge Plan Departure Patient Disposition: Home Clinical Impression: Bradycardia Activity Restrictions/Additional Instructions: Follow up for re-evaluation if you are continuing to feel unwell. Your labs do show your white count is a little bit elevated but it has been chronically elevated for the last several years. Please return for re-evaluation if you have new or worsening symptoms, chest pain, shortness of breath, any lightheadedness or passing out, fevers, persistent vomiting or other new or concerning changes. Prescriptions: No Action hydrocortisone [Proctosol HC] 2.5 % cream with perineal applicator 1 applictn VA BID-QID PRN (Reason: hemorrhoids) Qty: 30 1RF (DME) lancets See Rx Instructions .Route .MEDSUPPLY Qty: 300 3RF Rx Instructions: use to check blood sugar 5 times a day magnesium oxide 400 mg magnesium capsule 400 mg PO DAILY Qty: 90 3RF atenolol 25 mg tablet 25 mg PO DAILY Qty: 90 3RF (DME) lancets Misc See Rx Instructions .ROUTE .MEDSUPPLY Qty: 300 3RF Rx Instructions: Use to check blood sugars 5x a day or as directed by physician. omeprazole 20 mg capsule,delayed release(DR/EC) 20 mg PO QDAY Qty: 90 3RF Patient Comments: usally takes every other day ibuprofen 600 mg tablet 600 mg PO Q6-8H PRN (Reason: fever or pain) Qty: 250 2RF simvastatin [Zocor] 20 mg tablet 20 mg PO QDAY Qty: 90 3RF (DME) Onetouch Ultra Blue Test Strips Qty: 250 6RF Dose Instruction: As directed Rx Instructions: Use to test blood sugars 5x a day or as directed by PCP. amlodipine 2.5 mg tablet 2.5 mg PO BID Qty: 180 3RF lisinopril 20 mg tablet 40 mg PO DAILY Qty: 180 3RF (DME) pen needle, diabetic [TRUEplus Pen Needle] 31 gauge x 5/16 needle See Rx Instructions .ROUTE .COMPLEX Qty: 2700 3RF Dose Instruction: use five times a day as directed Rx Instructions: use five times a day as directed bimatoprost [Lumigan] 0.01 % drops 1 drp EYE-BOTH DAILY famotidine 40 mg tablet 40 mg PO DAILY Qty: 90 3RF furosemide 20 mg tablet 20 mg PO DAILY Qty: 90 2RF clotrimazole-betamethasone 1-0.05 % cream See Rx Instructions .ROUTE .COMPLEX Qty: 45 3RF Dose Instruction: apply to affected area three times a day Rx Instructions: apply to affected area three times a day albuterol sulfate 90 mcg/actuation HFA aerosol inhaler 2 puff inhalation Q4H Qty: 36 3RF hydrocodone-acetaminophen 5-325 mg tablet 1 tab PO Q4H MDD 4 tabs PRN (Reason: pain) Qty: 90 0RF hydrocodone-acetaminophen 5-325 mg tablet 1 - 2 tab PO Q4-6H MDD 4 tabs PRN (Reason: pain) Qty: 90 0RF hydrocodone-acetaminophen 5-325 mg tablet 1 - 2 tab PO Q4H MDD 4 tabs PRN (Reason: pain) Qty: 90 0RF (DME) Disabled Parking See Rx Instructions .ROUTE .MEDSUPPLY Qty: 1 0RF Rx Instructions: Patient qualifies for disabled parking as per the attached form. docusate sodium 100 mg capsule 100 mg PO BID Qty: 180 1RF insulin glargine [Lantus Solostar U-100 Insulin] 100 unit/mL (3 mL) insulin pen 45 unit SUBCUT BID Qty: 135 3RF insulin lispro 100 unit/mL insulin pen 8 - 28 unit SUBCUT 4XD Qty: 90 3RF cholecalciferol (vitamin D3) [Vitamin D3] 2,000 unit Tablet 2,000 unit PO DAILY Referrals: Carlos Arrington MD [Primary Care Provider, Internal Medicine] Stand Alone Forms: Patient Portal/API
[2025-06-19 21:38] LABS: Influenza A - CEPHEID Flu A NEGATIVE (NEGATIVE); Influenza B - CEPHEID Flu B NEGATIVE (NEGATIVE)
[2025-06-19 21:40] LABS: COVID-19 CEPHEID 4-PLEX PCR Negative (Negative)
[2025-06-19 21:59] LABS: Troponin I 0.017 ng/mL (0.01-0.034)
== END 2025-06-19 22:51 | disposition home or self-care (01) ==
PROVIDERS: Emergency Provider Emergency Medicine; PCP Internal Medicine
DX: R00.1 Bradycardia, unspecified (principal); R53.1 Weakness; Z86.79 Personal history of other diseases of the circulatory system
CPT/HCPCS: 36415; 71045; 80053; 82550; 83690; 83735; 83880; 84484; 85025; 85610; 85730; 87637; 93005; 93010; 99283; 99284

== ENCOUNTER → 2025-06-27 16:12 | Outpatient (CLI) | payer MEDICARE, MEDICAID, SELFPAY ==
[2025-06-01 15:56] VITALS: BMI 42.3
--- NOTE | 2025-06-27 16:12 | DI.ECHO.S_ITS ---
[facility] : : [address] : : [place] : : [id number] : : Phone: [phone] Echocardiogram Report + + :Name: SERGEY GEIGER Study Date: 06/27/2025 Height: 64 in : :[facility] ReadingLocation: Weight: 245 lb : : Gender: Female BSA: 2.1 m2 : :: 1945 Age: 80 yrs BP: 188/83 mmHg: :Reason For Study: Bradycardia : :Ordering Physician: ANGI, : :REMEDIOS Lui Performed By: Ancelmo Schmidt : :Referring: REMEDIOS WHITLEY : + + Interpretation Summary Technically difficult study secondary to poor acoustic windows. No intracardiac echo contrast utilized. - The left ventricular contractility appears to be grossly normal. Estimated ejection fraction is greater than 55% with no segmental wall motion abnormalities. No LVH. Unable to comment on diastolic function. - The right ventricle was not well-visualized. In limited views, the contractility appears to be preserved. - All cardiac chambers appears to be grossly normal in size. - No obvious valvular abnormalities noted on Doppler interrogation. - No obvious intracardiac shunts. - No obvious intracardiac masses nor thrombi. - No hemodynamically significant pericardial effusion. - Low right-sided filling pressures. Conclusion: Grossly normal biventricular systolic function with no obvious valvular abnormalities. When compared with previous echocardiogram, there appears to be improvement in the degree of mitral regurgitation. Procedure: A two-dimensional transthoracic echocardiogram with color flow and Doppler was performed. The study quality was technically difficult. Comparison is made with the echocardiogram of 05/05/2018. The patient was in a bradycardic rhythm during the exam. Left Ventricle: The left ventricle is normal in size and wall thickness. Left ventricular systolic function is normal. The ejection fraction is estimated to be 55-60%. There are no focal wall motion abnormalities. Cannot determine left atrial pressure and grade of diastolic dysfunction. Right Ventricle: The right ventricle grossly appears normal in size with probable normal systolic function. Atria: The left atrial size is normal. Right atrial size is normal. There is no Doppler evidence for an interatrial shunt. Mitral Valve: The mitral valve leaflets appear to open well. There is no mitral valve stenosis. There is trace mitral regurgitation. Aortic Valve: The aortic valve is trileaflet. The aortic valve opens well. There is no aortic valve stenosis. No aortic regurgitation is present. Tricuspid Valve: The tricuspid valve is not well visualized, but is grossly normal. There is trace tricuspid regurgitation. Pulmonary artery pressures cannot be estimated because of the lack of a measurable TR jet velocity but the IVC suggests a CVP of around 3 mmHg. Pulmonic Valve: The pulmonic valve is not well seen, but is grossly normal. There is trace pulmonic regurgitation. Great Vessels: The aortic root is normal size. The ascending aorta is normal in size. The aortic arch could not be visualized. The pulmonary artery is not well visualized, but is probably normal size. The IVC is of normal diameter and collapses greater than 50% with a sniff. This suggests a low right atrial pressure of 3 mm Hg. Pericardium/ Pleura There is no pericardial effusion. MMode/2D Measurements & Calculations LVIDd: 5.3 cm LVOT diam: 2.2 cm LVIDs: 3.1 cm Ao root diam: 3.4 cm FS: 41.5 % asc Aorta Diam: 3.3 cm IVSd: 0.90 cm LVPWd: 0.91 cm LV parish. diameter/BSA (cm/m^2): 2.5 LV sys. diameter/BSA (cm/m^2): 1.4 LA A2 area: 18.1 cm2 IVC diam: 1.9 cm LA A4 area: 13.1 cm2 LA length (vol): 4.3 cm LA vol: 47.2 ml LA vol index: 22.1 ml/m2 TAPSE: 2.0 cm Doppler Measurements & Calculations Ao V2 max: 128.3 cm/sec LVOT Max Philippe: 98.5 cm/sec Ao V2 mean: 76.6 cm/sec LV V1 max P.9 mmHg Ao max P.6 mmHg LV V1 VTI: 24.4 cm Ao mean P.8 mmHg SAL(I,D): 3.4 cm2 Ao V2 VTI: 27.1 cm SAL(V,D): 2.9 cm2 sev ratio: 0.90 SAL indexed to BSA (cm^2/m^2): 1.6 MV E max philippe: 85.9 cm/sec PA V2 max: 107.3 cm/sec MV A max philippe: 95.0 cm/sec PA V2 mean: 73.0 cm/sec MV E/A: 0.90 PA mean P.4 mmHg MV dec time: 0.22 sec PA pr(Accel): 36.6 mmHg SV(LVOT): 93.5 ml Reading Physician:THELMA
== END ==
LOC: ECHO 16:12
PROVIDERS: PCP Internal Medicine; Referring Provider Internal Medicine; Visit Provider Internal Medicine
DX: R00.1 Bradycardia, unspecified (principal)
CPT/HCPCS: 93306

== ENCOUNTER → 2025-07-10 | Outpatient (CLI) | payer MEDICARE, MEDICAID, SELFPAY ==
[2025-06-01 15:56] VITALS: BMI 42.3
== END ==
LOC: NUCM 13:46
PROVIDERS: PCP Internal Medicine; Referring Provider Internal Medicine; Visit Provider Internal Medicine
DX: R07.9 Chest pain, unspecified (principal); R94.39 Abnormal result of other cardiovascular function study
CPT/HCPCS: 78452; 93017; A9502; J2785